=== PATIENT | female | born 1980 | race Caucasian/White ===

== ENCOUNTER 2024-02-09 07:55 | Outpatient (CLI) | payer OTHER, SELFPAY ==
--- NOTE | 2024-02-09 08:15 | CRLHL7_ITS ---
For Patients: As a result of the Century Cures Act, medical imaging exams and procedure reports are released immediately into your electronic medical record. You may view this report before your referring provider. If you have questions, please contact your health care provider. ULTRASOUND-GUIDED BREAST BIOPSY AND POST-BIOPSY DIGITAL MAMMOGRAM FOR BIOPSY MARKER PLACEMENT CLINICAL HISTORY: Indeterminate lesion. COMPARISON STUDIES: 01/25/2024. TECHNIQUE: Real-time ultrasound with image documentation was used for targeting the breast lesion. Core biopsy specimens were obtained using an automated gun with an 18-gauge biopsy needle. Post-biopsy CC and ML digital mammograms were obtained to document position of the biopsy marker. CONSENT and TIME OUT: The procedure, risks, and alternatives were explained to the patient and a consent was signed. [place] Protocol was followed including pre-procedure verification that relevant information/documentation was available, reviewed and properly matched to the patient; consent accurate and complete; and equipment and supplies available. Time Out was conducted just prior to starting procedure to verify the four required elements: patient identity, correct side/site marked (if applicable), procedure, relevant images/results properly labeled and displayed (if applicable). PROCEDURE: The patient was positioned supine on the ultrasound table. The breast was prepped with ChloraPrep. 6 cc of 1 percent lidocaine used for local anesthesia. Core samples were obtained. A sterile metal biopsy clip was placed percutaneously to gladis the lesion position within the breast. The specimens were placed in 10% formalin and sent to the pathology department. Pressure was held on the biopsy site until all bleeding subsided. The skin incision was closed with Steri-Strips. An ice pack was positioned over the biopsy site. Post-biopsy instructions were reviewed with the patient, and a written copy was given to her. LATERALITY: LEFT breast. LESION: Hypoechoic lobular solid nodule measuring 9 x 10 x 11 millimeters at 3 o`clock 7 cm from the nipple. SUSPICION FOR MALIGNANCY: Intermediate. NUMBER OF SAMPLES: 5. BIOPSY CLIP SHAPE: Oval. PROXIMITY OF CLIP TO TARGET: Within the lesion. IMPRESSION: Ultrasound-guided breast biopsy. When the pathology report is available, an addendum to this report will be made. ACR not applicable Dictated by Paramjit Tsang MD @ 02/09/2024 9:22:21 AM jj/Dictated by: Paramjit Tsang MD @ 02/09/2024 9:22:00 AM (Electronically Signed)
--- NOTE | 2024-02-09 09:00 | CRLHL7_ITS ---
For Patients: As a result of the Century Cures Act, medical imaging exams and procedure reports are released immediately into your electronic medical record. You may view this report before your referring provider. If you have questions, please contact your health care provider. SEE ULTRASOUND-GUIDED LEFT BREAST BIOPSY PERFORMED SAME DAY CRL:[email or web address] watters/Dictated by: Paramjit Tsang MD @ 02/09/2024 9:22:00 AM (Electronically Signed)
== END 2024-02-09 07:56 | disposition home or self-care (01) ==
PROVIDERS: Visit Provider Obstetrics & Gynecology
DX: N63.20 Unspecified lump in the left breast, unspecified quadrant (principal); C50.912 Malignant neoplasm of unspecified site of left female breast; R92.8 Other abnormal and inconclusive findings on diagnostic imaging of breast
CPT/HCPCS: 19083; 77065; 88305; 88341; 88342; 88360; 88361; A4648; A4649

== ENCOUNTER 2024-02-15 13:20 | Outpatient (CLI) | payer OTHER, SELFPAY ==
--- NOTE | 2024-02-15 13:45 | CRLHL7_ITS ---
For Patients: As a result of the 21st Century Cures Act, medical imaging exams and procedure reports are released immediately into your electronic medical record. You may view this report before your referring provider. If you have questions, please contact your health care provider. BILATERAL BREAST MRI WITHOUT AND WITH GADOLINIUM CLINICAL HISTORY: 43-year-old female with recently diagnosed LEFT breast cancer. INDICATION FOR BREAST MRI: Staging of newly diagnosed breast cancer and screening of contralateral breast. Regional lymph nodes will also be assessed. COMPARISON STUDIES: No prior MRIs available for comparison. Screening mammogram 01/10/2024, additional mammographic views of the LEFT breast and LEFT breast ultrasound 01/25/2024, ultrasound-guided biopsy and postprocedure mammogram 02/09/2024. CONTRAST: 15 cc of Dotarem. TECHNIQUE: The patient was positioned prone using a breast coil. Multiple imaging sequences were obtained using 1-1.5 mm thick slices with no gap. The image sequences include T2-weighted STIR in the axial plane, T1-weighted nonfat-saturated gradient echo in the axial plane, pre- and post-contrast T1-weighted FLASH 3D with fat suppression in the axial plane, and T1-weighted FLASH high resolution 3D with fat suppression in the sagittal plane. Image post-processing was performed on a [employer] workstation. Complex 3D rendering including maximum intensity projections (MIPS) and volumetric renderings were obtained to optimize visualization of the extent of pathology and relationship to the nipple, skin, and chest wall. This aids in determining feasibility of breast conservation surgery. Subtraction, multiplanar reconstruction, mean curve determination, and angiogenesis mapping were also performed. The study was technically adequate. FINDINGS: Amount of Fibroglandular Tissue: Scattered fibroglandular tissue. Breast Background Enhancement: Mild. RIGHT Breast: No suspicious areas of enhancement. LEFT Breast: At 3 o`clock, posterior depth, 8 cm from the nipple there is an irregular mass with irregular margins and heterogeneous internal enhancement measuring 1.4 x 1.2 cm. Artifact from a biopsy marker clip is seen within the mass. This is consistent with the site of biopsy-proven malignancy. There is additional mass and non-mass enhancement extending anteriorly. The mass and non-mass enhancement measure up to 3.4 cm. There is also enhancement extending laterally, which may represent the biopsied tract with post biopsy change. Lymph Nodes: There is a LEFT axillary lymph node with mild cortical thickening. IMPRESSIONS AND RECOMMENDATIONS: LEFT Breast: 1. Mass at 3 o`clock, posterior depth measuring up to 1.4 cm MRI is consistent with the biopsy-proven malignancy. There is additional surrounding non-mass enhancement, and the mass and non-mass enhancement measure up to 3.4 cm. If it would alter surgical or clinical management, targeted ultrasound to evaluate for a satellite mass could be performed. 2. Abnormal LEFT axillary lymph node with mild cortical thickening. Recommend LEFT axillary ultrasound and possible ultrasound-guided biopsy. RIGHT Breast: Negative, there is no MRI evidence of contralateral malignancy. BI-RADS Category 4: Suspicious Dictated by Марина Galicia MD @ 02/16/2024 1:39:06 PM bhavyaj/Dictated by: Марина Galicia MD @ 02/16/2024 1:41:00 PM (Electronically Signed)
== END 2024-02-15 13:21 | disposition home or self-care (01) ==
LOC: MRI 13:24
PROVIDERS: PCP Obstetrics & Gynecology; Visit Provider Surgery
DX: C50.812 Malignant neoplasm of overlapping sites of left female breast (principal)
CPT/HCPCS: 77049; A9575

== ENCOUNTER 2024-02-18 11:04 | Outpatient (CLI) | payer OTHER, SELFPAY | END 2024-02-18 11:05 | disposition home or self-care (01) | LOC: NFLDREF 02-19 23:00 | PROVIDERS: PCP Obstetrics & Gynecology; Referring Provider Obstetrics & Gynecology; Visit Provider Internal Medicine Hematology & Oncology | DX: C50.912 Malignant neoplasm of unspecified site of left female breast (principal); Z83.2 Family history of diseases of the blood and blood-forming organs and certain disorders involving the immune mechanism; Z17.421 Hormone receptor negative with human epidermal growth factor receptor 2 negative status | CPT/HCPCS: 85240; 85245; 85246; 85610; 85730 ==

== ENCOUNTER 2024-02-24 12:56 | Outpatient (CLI) | payer OTHER, SELFPAY ==
--- OUTSIDE RECORDS SUMMARY | 2024-02-21 14:58 | XMS_ITS | Continuity of Care Document ---
Author Organization [facility], [id number] Address [address] [place] [address] Care Team Providers Care Box Loader Name Role Phone ZENA IQBAL Primary Care Provider [phone] Assessment No assessment recorded. Plan of Treatment Reminders Order Date Submit Date Provider Last Modified By Organization Details Last Modified Time Details Appointments None record ed. Lab pap, LB + HR HPV 2023 024 [facility], [address], [id number], [place], [address], 4 12:16:07 Referral None record ed. Procedures None record ed. Surgeries None record ed. Imaging MAMMO, screen ing, digita l, bilate ral 2023 024 stephany [facility] [place], [address], [address], [place], [address], 4 11:37:58 Medication Orders None record ed. Patient TargetsNo targets recorded. Patient Instructions Encounter Date Encounter Id Patient Instructions Last Modified By Organization Details Last Modified Time 01/24/2024 [id number] A healthy lifestyle: care instructions [email or web address] Not available 01/24/2024 14:42:41 learning about control Not available 01/24/2024 14:42:41 Pap test: care instructions [email or web address] Not available 01/24/2024 14:42:41 safer sex: care instructions [email or web address] Not available 01/24/2024 14:42:41 skin cancer prevention: care instructions [email or web address] Not available 01/24/2024 14:42:41 Well Visit, Ages 18 to 65: Care Instructions Not available 01/24/2024 14:42:41 gonorrhea and chlamydia: about these tests [place] [id number] Not available 01/24/2024 14:42:40 HPV (human papillomavirus) vaccine: what you need to know [place] [id number] Not available 01/24/2024 14:42:41 learning about depression screening Not available 01/24/2024 14:42:41 learning about m ood disorders [email or web address] Not available 01/24/2024 14:42:40 learning about stress Not available 01/24/2024 14:42:41 breast self-exam : care instructions Not available 01/24/2024 14:42:41 Cervical Cancer Screening: Women should begin having a Pap smear at age 21. Women aged 21-29 should be screened every 3 years. Women aged 30-65 should be screened every 3-5 years. Your doctor may stop performing pap smear screenings if you have had a hysterectomy or are age 65 or above, if you meet certain criteria: Three consecutive negative cytology results or two consecutive negative HPV results within the previous 10 years with the most recent test within the past 5 years. No history of a high-grade precancerous lesions (cervical intraepithelial neoplasia grade 2 or grade 3 or cervical cancer within the past 20 years). Breast Cancer Screening: Average-risk women should initiate mammography screening at age 40 and no later than age 50. Screening mammography should occur annually, but no more than every 2 years and continue until at least age 74. If you are at higher risk of breast cancer you should be screened annually with consideration of other methods, including breast ultrasound and MRI depending on your particular risk assessment. You should be aware of any changes in your breasts and notify your provider of any concerns. Screening for Sexually Transmitted Diseases: Chlamydia and Gonorrhea are two of the most common sexually transmitted diseases with 75% of Chlamydial and 68% of Gonococcal infections showing no symptoms. Women should be screened for Chlamydia and Gonorrhea that are age 25 and under or women over age 25 at increased or special risk. Women should be screened for HIV aged 13-64 or at increased risk. 84% of cases are attributed to heterosexual sex. Women at increased or special risk or requesting STI screening should be screened for Hepatitis B and C, Syphilis, Herpes, Trichomonas. Vaccination Recommendations for Ages 27-45: Screenings for vaccination status should be based on the CDC Adult Vaccine Schedule. Recommendations include seasonal flu vaccine, Hepatitis A&B, and the Varicella series for those who are unvaccinated and have no history of infection. Completion of the HPV vaccine can be considered if desired and you have not been previously vaccinated. All eligible women should receive full vaccination against COVID-19. If you are actively attempting , you should not receive live vaccines. Contraception Information: If you are considering or participating in a heterosexual relationship involving vaginal intercourse it is recommended that you have a gynecologic visit to discuss contraception if you do not wish to become now. Your visit will include a discussion about which contraception option is best for you based on your medical history, ease of use and personal preference. Once a method is identified as the best option, your healthcare provider will provide education on how to most effectively use the method chosen, when to start, possible side effects and efficacy at preventing . If you wish to discontinue or change to another method of contraception, please discuss possible options with your healthcare provider. Hereditary Cancer Screening: Your provider will review your family history of any cancers in your first- and second-degree relatives if you know that information. A referral for genetic counseling may be made if your family history includes a diagnosis of cancer at a young age, multiple cancers of the same type in different family members of the same side, or multiple primary cancers in one individual, or multiple family members on the same side affected by a combination of breast, ovarian, endometrial, and/or gastrointestinal cancers. Preconception Counseling: If you are of reproductive age who are actively planning or not preventing should have a visit to discuss their reproductive plan. The goals of this visit are to identify any risks or barriers to healthy outcomes and to receive education on possible options for health management to reduce any risks prior to becoming . Your provider will ask you about your health history in order to identify possible chronic medical conditions that should be optimized prior to for better outcomes and will make referrals if needed. Your provider will also review the medications that you are currently taking that may be harmful in and talk with you about any that may need to be stopped. Your provider will review your vaccination status with you to identify if there are any that may be recommended as well as discuss substance abuse and possible environmental exposures. Family history will be obtained to identify any potential inheritable conditions and refer you to a genetic counselor if necessary. Your provider will ask you to start taking a folic acid supplementation of 400-800mcg daily to prevent neural tube defects if there is a chance you may become . Genetic Testing for Inheritable Disorders (Carrier Screening): The [place] [employer] recommends that all women, and preferably all women with a desire to become , consider having a blood test to assess their risk of carrying a baby with a significant inherited disorder, such as cystic fibrosis. This test only needs to be performed once in a lifetime (assuming there are no improvements in testing in the future). A positive test indicates that there is a risk for the disease, however, a baby can only be affected with the disease if both parents carry the same gene. Therefore, the father of the baby would also need to be tested. [email or web address] Not available 12/29/2023 17:21:57 Reason for Referral None Reported. Results Created Date Observation Date Name Description Value Unit Range Abnormal Flag Note LastModifiedBy Organization Detail LastModifiedTime 02/21/20 24 02/15/2024 jonathan shields/erickson berman tic resul t No observ ation record ed. [facility] [address] [place], [address], 02/21/2024 14:49:13 Result Notes None recorded. Problems Name Problem SNOMED Code Status Onset Date Resolution Date Notes Provider Name and Address Organization Details Recorded Time Urinary tract infectious disease 84856487 Active BRYAN Strong [facility] 3 09:16:54 Problem Notes None recorded. Procedures Surgical History Date Name Laterality Status Provider Name and Address Organization Details Recorded Time 01/24/20 [facility] Annual Well-Woman Visit age 40-64 [place] [address] [place] [address] completed Tesha ADAMS - [facility] 12/29/2023 17:21:57 01/07/20 Date of Last Mammogram completed Tesha ADAMS - [facility] 01/24/2024 14:10:31 01/09/20 [facility] Annual Well-Woman Visit age 40-64 [place] [address] [place] [address] completed Megan ADAMS - [facility] 12/24/2022 09:44:24 12/14/19 21 Date of Last Pap Smear completed Navalorraine Travis [place] [facility] 01/08/2023 09:28:36 09/30/19 20 Date of Last Colonoscopy completed Maria Luisa Travis [place] [facility] 01/08/2023 09:21:08 05/14/19 10 abdominoplasty completed Navalorraine Caceresg [place] [facility] 01/08/2023 09:21:00 09/29/19 07 section completed Maria Luisa Caceresg [place] - [facility] 01/08/2023 09:20:10 08/03/19 06 section completed Maria Luisa Caceresg [place] [facility] 01/08/2023 09:20:06 03/01/19 04 extraction of wisdom tooth completed Maria Luisa Caceresg [place] [facility] 01/08/2023 09:21:45 Imaging Results None recorded. Procedure Notes None recorded. Medical Equipment None Reported. Allergies No known drug allergies Medications Name Sig Start Date Stop Date Status Note LastModified by Organization Details LastModified Time nitrofurant oin macrocrysta l 100 mg capsule TAKE 1 CAPSULE BY MOUTH EVERY 12 HOURS FOR 5 DAYS active Not Available Not Available No t Available nitrofurant oin monohydrate /macrocryst als 100 mg capsule TAKE ONE CAPSULE BY MOUTH EVERY 12 HOURS FOR 5 DAYS NEEDED FOR RECURRENT URINARY TRACT INFECTION S 01/23 completed Not Available Not Available Not Available Vitamin D3 active Not Available Not Av ailable Not Available Vitals Date Recorded Body weight Body mass index (BMI) Body height Heart rate Systolic blood pressure Diastolic blood pressure Provider Name and Address Organization Details Last Updated DateTime 4 78794.2 g 27.6 kg/m2 154.94 cm 88 /min 107 mm[Hg] 65 mm[Hg] Tesha villaseñor [place] [facility] [place] [facility] 4 14:12:23 Social History Question Answer Notes LastModified by Organizat ion Details LastModified Time Tobacco Smoking Status Never Smoker Lelelaura Angy hdez [place] [facility] 01/08/2023 09:17:58 Do You Have An Advance Directive? No Information not available 01/08/2023 What Is Your Level Of Alcohol Consumption? Occasional 1 Drink Per Day Information not available 01/08/2023 What Is Your Level Of Caffeine Consumption? Moderate 2 Drinks Per Day Information not available 01/08/2023 History Of Domestic Violence No Information not available 01/08/2023 What Was The Date Of Your Most Recent Tobacco Screening? 01/24/2024 Information not available 01/24/2024 What Is Your Relationship Status? Information not available 01/08/2023 Are You Sexually Active? Yes Information not available 01/08/2023 Do You Use Any Illicit Or Recreational Drugs? No Information not available 01/08/2023 Has Tobacco Cessation Counseling Been Provided? No Information not available 01/24/2024 Do You Or Have You Ever Used Any Other Forms Of Tobacco Or Nicotine? No Information not available 01/24/2024 Sex: Unknown Functional Status Question Answer Note LastModified by Organizat ion Details LastModified Time What is your exercise level? Moderate walking 1-3 miles per day Information not available 01/08/2023 Mental Status None recorded. Family History Relationship Description Onset Age of this Age Resolved Age Notes LastModified by Organization Details LastModified Time Mother Hyperlipidem ia Not available 2022 09:22:04 Mother Malignant neoplasm of skin Basal and [place] us Not available 01/08/2023 09:22:47 Mother Mitral valve prolapse Not available 2022 09:22:39 Father Malignant neoplasm of skin Basal and [place] Not available 01/08/2023 09:22:48 Father Heart disease 64 s/p 3V CABG Not available 01/08/2023 09:23:12 Father Hyperlipidem ia Not available 2022 09:23:17 Maternal Grandfather Amyotrophic lateral sclerosis Not available 2022 09:23:34 Paternal Grandmother Diabetes mellitus Not available 2022 09:23:43 Paternal Grandmother Hypertensive disorder Not available 2022 09:23:53 Paternal Grandfather Malignant neoplastic disease unknow n Not available 01/08/2023 09:24:06 Medical History No medical history recorded. Gynecological History Statement/Question Response History of Abnormal PAP N Total lifetime partners Less than 5 Date of Last Mammogram 01/07/2024 Date of LMP 01/08/2024 Date of Last Diabetes Screening 01/09/20 23 Date of last bone density Sexually Active Y Age at Menarche: 11 Date of Last Colonoscopy 09/30/2019 Age at first intercourse 17 Current Control Method Vasectomy History of Fibroids Y Date of Last Pap Smear 12/13/2020 Date of Last Cholesterol Screening 01/08 Obstetrics History GPAL:G 2 P 2 0 0 2 Type Value Multiple Births 0 Full Term 2 Induced 0 Spontaneous 0 Premature 0 Living 2 Ectopics 0 Total 2 Past Encounters Encounter ID Performer Location Encounter Start Date Encounter Closed Date Diagnosis/Indication Diagnosis SNOMED-CT Code Diagnosis ICD10 Code [id number] CHARISSE KING MD [id number] [address] [address] 01/24/2024 13:56:34 01/24/2024 15:33:00 Gynecologic examination 61261096 Z01.419 Screening for malignant neoplasm of cervix 851749781 Z12.4 Screening for malignant neoplasm of breast 075612064 Z12.39 Health Concerns Section Related Observation LastModified by Organization Detai ls LastModified Time None Recorded Concern Status LastModified by Organization Details LastModified Time None Recorded Payers Encounter Date Sequence Insurance Name Policy Number Policy Paiz Covered Member ID Paiz Member ID Guarantor Name 01/24/2024 1 [employer] Max Calero [id number] Chelsie Calero Notes Date Note Type Note Provider Name and Address Organization Details Recorded Time 01/24/2024 text/html [facility] Annual Well-Women Visit Age 40-64Reported bypatient.Current Medical History:no active medical problems; no recent surgeries or hospitalizations Relevant Family History:no family history of breast cancer; no family history of ovarian cancer; no family history of uterine cancer; no family history of colon cancer; no family history of blood clots/DVT Last Pap smear:last Pap smear was normal; last HPV negative; last Pap smear was done 3 years ago Mammography:up-to-date Bone Density Study:reviewed and documented in [facility] history Colorectal screening:up-to-date Diabetes screening:reviewed and documented in [facility] history; screening test: HgA1C Lipid screening:reviewed and documented in [facility] history;prior lipid screening was abnormal Thyroid screeningreviewed and documented in [facility] history; prior thyroid screening was normal Risk factors for cervical cancer ([facility]) Z91.89:no risk factors Medical risk factors:no historical risk factors Contraceptive Method:satisfied with current method Sexually Active:Yes[place] [id number] [address], [place], [address], [place] [facility] 01/24/2024 14:42:46 OBGyn Episode No OBEpisode recorded.
--- OUTSIDE RECORDS SUMMARY | 2024-02-21 14:58 | XMS_ITS | Data Portability ---
Author Organization [facility] REWINDER, [id number] Address [address] [place] [address] Care Team Providers Care Transportation Driver Name Role Phone ZENA IQBAL Primary Care Provider Assessment No assessment recorded. Plan of Treatment Reminders Order Date Submit Date Provider Last Modified By Organization Details Last Modified Time Details Appointments None record ed. Lab lipid panel, serum 2022 023 [facility], [address] [place] [address], [address], [place], [address], 3 03:07:54 hemogl obin A1c, QN, blood 2022 023 [facility], [address] [place] [address], [address], [place], [address], 3 21:18:51 TSH, serum or plasma 2022 023 [facility], [address] [place] [address], [address], [place], [address], 3 03:07:54 pap, LB + HR HPV [address], [address], [place], [address], 4 12:16:07 Referral None record ed. Procedures None record ed. Surgeries None record ed. Imaging MAMMO, screen ing, digita l, bilate ral 2022 023 [facility] (Mammogram), [address], Radiology Dept, [address], [place], [address], 12:30:26 MAMMO, screen ing, digita l, bilate ral 2023 024 [facility], [address], [address], [place], [address], 11:37:58 Medication Orders None record ed. Patient TargetsNo targets recorded. Patient Instructions Encounter Date Encounter Id Patient Instructions Last Modified By Organization Details Last Modified Time 01/08/2023 [id number] A healthy lifestyle: care instructions Not available 01/08/2023 10:46:35 learning about control [email or web address] Not available 01/08/2023 10:46:35 Pap test: care instructions [email or web address] Not available 01/08/2023 10:46:35 safer sex: care instructions [email or web address] Not available 01/08/2023 10:46:35 skin cancer prevention: care instructions [email or web address] Not available 01/08/2023 10:46:35 Well Visit, Ages 18 to 65: Care Instructions [email or web address] Not available 01/08/2023 10:46:36 gonorrhea and chlamydia: about these tests Not available 01/08/2023 10:46:36 HPV (human papillomavirus) vaccine: what you need to know [email or web address] Not available 01/08/2023 10:46:36 learning about depression screening [email or web address] Not available 01/08/2023 10:46:36 learning about m ood disorders [email or web address] Not available 01/08/2023 10:46:36 learning about stress Not available 01/08/2023 10:46:36 breast self-exam : care instructions [email or web address] Not available 01/08/2023 10:46:36 venous blood draw* Not availab le 01/08/2023 10:46:36 Cervical Cancer Screening: Women should begin having [...] Testing for Inheritable Disorders (Carrier Screening): The [employer] recommends that [...] baby would also need to be tested. [email or web address] Not available 12/24/2022 09:44:23 01/24/2024 [id number] A healthy lifestyle: care instructions [email or web address] Not available 01/24/2024 14:42:41 learning about control Not available 01/24/2024 14:42:41 Pap test: care instructions [email or web address] Not available 01/24/2024 14:42:41 safer sex: care instructions Not available 01/24/2024 14:42:41 skin cancer prevention: care instructions [email or web address] Not available 01/24/2024 14:42:41 Well Visit, Ages 18 to 65: Care Instructions Not available 01/24/2024 14:42:41 gonorrhea and chlamydia: about these tests [place] [id number] Not available 01/24/2024 14:42:40 HPV (human papillomavirus) vaccine: what you need to know [place] [id number] Not available 01/24/2024 14:42:41 learning about depression screening [email or web address] Not available 01/24/2024 14:42:41 learning about m ood disorders Not available 01/24/2024 14:42:40 learning about stress [email or web address] Not available 01/24/2024 14:42:41 breast self-exam : [...] Testing for Inheritable Disorders (Carrier Screening): The [employer] recommends that [...] baby would also need to be tested. [email or web address] Not available 12/29/2023 17:21:57 Reason for Referral None Reported. Results Created Date Observation Date Name Description Value Unit Range Abnormal Flag Note LastModifiedBy Organization Detail LastModifiedTime 01/09/2001/08/2023 HEMOG LOBIN A1C hemoglobin A1C 5.2 % <5.7 Hayley l <5.7% Predi abete s 5.7-6 .4% Diabe [place] 6.5% or highe r Note: Adopt ed from ADA conse nsus guide lines . Not Available [address], [place], [address], 01/08/2023 21:18:51 01/09/20 23 01/08/2023 TSH WITH REFLE X TO FREE T4 TSH 1.21 uIU/m L 0.30-4 .20 Not Available [address], [place], [address], 01/09/2023 03:07:54 01/09/20 23 01/08/2023 LIPID PANEL cholesterol 188 mg/dL <200 Not Available [address], [place], [address], 01/09/2023 03:07:54 01/09/20 23 01/08/2023 LIPID PANEL triglyceride s 46 mg/dL <150 Not Available [address], [place], [address], 01/09/2023 03:07:54 01/09/2001/08/2023 LIPID PANEL direct measure HDL 69 mg/dL >=50 Not Available [address], [place], [address], 01/09/2023 03:07:54 01/09/20 23 01/08/2023 LIPID PANEL LDL cholesterol calculated 110 mg/dL <=100 high Not Available [address], [place], [address], 01/09/2023 03:07:54 01/09/20 23 01/08/2023 LIPID PANEL non HDL cholesterol 119 mg/dL <130 Jessica stero l Tana able: <200 mg/dL Trigl yceri killian Hayley l: Less than 150 mg/dL Borde rline High: 150-1 99 mg/dL High: 200-4 99 mg/dL Very High: Great er than or equal to 500 mg/dL Direc t Measu re HDL Femal e: Great er than or equal to 50 mg/dL Male: Great er than or equal to 40 mg/dL LDL Jessica stero l Tana able: <100m g/dL Above Tana able: 100-1 29 mg/dL Borde rline High: 130-1 59 mg/dL High: 160-1 89 mg/dL Very High: >= 190 mg/dL Non HDL Jessica stero l Tana able: 130 mg/dL Above Tana able: 130-1 59 mg/dL Macrina mcgee High: 160-1 89 mg/dL High: 190-2 19 mg/dL Very High: Great er than or equal to 220 mg/dL Not Available [address], [place], [address], 01/09/2023 03:07:54 01/24/20 24 01/24/2024 HPV AND GYNEC OLOGI C CYTOL OGY PANEL human papilloma virus 16 DNA Negati ve negati ve Not Available [address], [place], [address], 01/31/2024 12:16:07 01/24/20 24 01/24/2024 HPV AND GYNEC OLOGI C CYTOL OGY PANEL human papilloma virus 18 DNA Negati ve negati ve Not Available [address], [place], [address], 01/31/2024 12:16:07 01/24/20 24 01/24/2024 HPV AND GYNEC OLOGI C CYTOL OGY PANEL human papilloma virus other Negati ve negati ve Not Available [address], [place], [address], 01/31/2024 12:16:07 01/24/20 24 01/24/2024 HPV AND GYNEC OLOGI C CYTOL OGY PANEL final diagnosis See note below This patie nt's sampl e is negat ramirez for high risk HPV DNA. METHO DOLOG Y: The BD COR syste m uses autom ated extra ction , simul taneo us ampli ficat ion of HPV (E6/E 7 oncog nixon) and beta- globi n, follo wed by real time detec tion of fluor escen t label ed HPV and beta globi n using speci fic oligo nucle otide probe s. The test speci fical ly ident ifies types HPV 16 DNA and HPV 18 DNA while concu rrent ly detec ting the rest of the high risk types (31, 33, 35, 39, 45, 51, 52, 56, 58, 59, 66 or 68). COMME NTS: This test is not inten ded for use as a scree deirdre devic e for woman under age 30 with hayley l cervi negrita cytol ogy. Resul ts amaya d be corre lated with cytol ogic and histo logic findi ngs. Close clini negrita follo w up is recom ectormonica anderson see the separ ate Gynec ologi c Cytol ogy (Pap) repor t from the same colle ction date. Not Available [address], [place], [address], 01/31/2024 12:16:07 01/24/20 24 01/24/2024 GYNEC OLOGI C CYTOL OGY PAP SMEAR gynecologic cytology SEE RESULT S BELOW SPECI MEN SOURC E [place] ing Cervi x BKR LAB AP BUSINESS ATTORNEY INTER PRETA TION: Negat ramirez for Intra epith gab berry or El alcantara (NILM ) Elect krunal finnegan machelle d by Jovanni Norwood, CT (ASCP ) on 2023 at 11:14 AM Path repor [email or web address].com ments Imp Spec: Papan icola ou Test Limit ation s: Cervi negrita cytol ogy is a scree deirdre test with limit ed sensi tivit y, and regul ar scree deirdre is criti negrita for cance r preve ntion . Pap tests are prima rily effec tive for the diagn osis/ preve ntion of squam ous cell carci noma, not adeno carci noma or other cance rs. BKR LAB AP BUSINESS ATTORNEY ADEQU ACY: Satis facto ry for evalu ation , endoc ervic al/tr ansfo rmati on zone compo nent absen t Path repor t.rel evant Hx Spec: none BKR LAB AP LMP: 01/07 BKR LAB AP PREVI OUS ABNOR MAL: No BKR LAB AP PREVI OUS ABNL DX: hayley l Path repor t.com ments Imp Spec: The techn ical compo nent of this testi ng [facility] . Stain contr ols for all stain s resul juve withi n this repor t have been revie wed and show appro priat e react ivity . BKR AP ASSOC IATED HPV REPOR T: Pleas e see the assoc iated HPV High Risk Types DNA Cervi negrita repor t for Speci men [id number] from the same colle ction date. Not Available [address], [place], [address], 01/31/2024 12:16:09 02/21/20 24 02/15/2024 imagi ng/di agnos tic resul t No observ ation record ed. [facility] [address] [place], [address], 02/21/2024 14:49:13 Result Notes None recorded. Problems Name Problem SNOMED Code Status Onset Date Resolution Date Notes Provider Name and Address Organization Details Recorded Time Urinary tract infectious disease 11417720 Active Maria Luisa hdez [place] - [facility] 09:16:54 Problem Notes None recorded. Procedures Surgical History Date Name Laterality Status Provider Name and Address Organization Details Recorded Time 01/24/20 [facility] Annual Well-Woman Visit age 40-64 [place] [address] [place] [address] completed Tesha kwon [place] - [facility] 12/29/2023 17:21:57 01/07/20 24 Date of Last Mammogram completed Tesha kwon [place] - [facility] 01/24/2024 14:10:31 01/09/20 [facility] Annual Well-Woman Visit age 40-64 EST [address] [place] NEW [address] completed Crystal Beebe [place] - [facility] 12/24/2022 09:44:24 12/14/19 21 Date of Last Pap Smear completed Maria Luisa AD[facility] - [facility] 01/08/2023 09:28:36 09/30/19 20 Date of Last Colonoscopy completed Maria Luisa ADAMS - [facility] 01/08/2023 09:21:08 03/15/20 10 abdominoplasty completed Maria Luisa Travis [place] [facility] 01/08/2023 09:21:00 09/29/19 07 section completed Maria Luisa Travis [place] [facility] 01/08/2023 09:20:10 08/03/19 06 section completed Maria Luisa Travis [place] [facility] 01/08/2023 09:20:06 03/01/19 04 extraction of wisdom tooth completed Maria Luisa Travis [place] [facility] 01/08/2023 09:21:45 Imaging Results Imaging Date Name Status LastModified by Organiz ation Details LastModified Time 02/15/2024 imaging/diagn ostic result active [facility] [address] [place], [address], 02/21/2024 14:49:13 Procedure Notes None recorded. Medical Equipment None [...] Av ailable Not Available Vitals Date Recorded Heart rate Body height Body mass index (BMI) Body weight Systolic blood pressure Diastolic blood pressure Provider Name and Address Organization Details Last Updated DateTime 3 70 /min 154.94 cm 27.5 kg/m2 98782.7 7 g 110 mm[Hg] 72 mm[Hg] Lelelaura Travis [place] - [facility] 3 09:06:59 Date Recorded Body weight Body mass index (BMI) Body height Heart rate Systolic blood pressure Diastolic blood pressure Provider Name and Address Organization Details Last Updated DateTime 4 44308.2 g 27.6 kg/m2 154.94 cm 88 /min 107 mm[Hg] 65 mm[Hg] Tesha Meza [facility] [place] - [facility] 4 14:12:23 Social History Question Answer Notes LastModified by Organizat Actiance Details LastModified Time Tobacco Smoking Status Never Smoker BRYAN Strong - REWINDER 01/08/2023 09:17:58 Do You Have An Advance [...] Status Question Answer Note LastModified by Organizat Actiance Details LastModified Time What is your exercise [...] Diagnosis/Indication Diagnosis SNOMED-CT Code Diagnosis ICD10 Code [id number] CHARISSE KING MD [id number] ED[facility]IN [facility] [address] [place] [address] 01/08/2023 08:49:42 01/08/2023 14:49:51 Gynecologic examination 96284466 Z01.419 Screening for malignant neoplasm of breast 703143837 Z12.39 [id number] CHARISSE KING MD [id number] EDVIN S_[facility] [address] [address] 01/24/2024 13:56:34 01/24/2024 15:33:00 Gynecologic examination 28138270 Z01.419 Screening for malignant neoplasm of cervix 661020299 Z12.4 Screening for malignant neoplasm of breast 538342788 Z12.39 Health Concerns Section Related Observation LastModified by Organization Detai ls LastModified Time None Recorded Concern Status LastModified by Organization Details LastModified Time None Recorded Advance Directives Directive N: Payers Encounter Date Sequence Insurance Name Policy Number Policy Paiz Covered Member ID Paiz Member ID Guarantor Name 01/08/2023 1 [facility] Max Calero [id number] Chelsie Calero 01/24/2024 1 [facility] Max Calero [id number] Chelsie Calero Notes Date Note Type Note Provider Name and Address Organization Details Recorded Time 01/08/2023 text/html [facility] Annual Well-Women Visit Age 40-64Reported bypatient.Current Medical History:active medical problems Relevant Family History:has a family history of colon cancer Last Pap smear:last Pap smear was normal Mammography:up-to-date Bone Density Study:not applicable Colorectal screening:up-to-date Risk factors for cervical cancer ([facility]) Z91.89:no risk factors Medical risk factors:no historical risk factors Contraceptive Method:Current Method Used: vasectomy Sexually Active:Yes: spouse Menstrual cycle:normal menstrual cycle and flow Urinary symptoms:negative Vulva:negative Vagina:negative Breast:negativeNotes:S he quit her job in June and she is not planning on looking for another job for awhile.She has questions for her teenager daughters about contraception and control [place] [address] [facility],[address], [place], [address], [facility] - [facility] RE[facility] 01/08/2023 10:46:51 01/24/2024 text/html [facility] Annual Well-Women Visit Age 40-64Reported [...] Mammography:up-to-date Bone Density Study:reviewed and documented in BUSINESS ATTORNEY history Colorectal screening:up-to-date Diabetes screening:reviewed and documented in BUSINESS ATTORNEY history; screening test: HgA1C Lipid screening:reviewed and documented in BUSINESS ATTORNEY history;prior lipid screening was abnormal Thyroid screeningreviewed and documented in BUSINESS ATTORNEY history; prior thyroid screening was normal Risk factors for cervical cancer ([facility]) Z91.89:no risk factors Medical risk factors:no historical risk factors Contraceptive Method:satisfied with current method Sexually Active:Yes[place] [address] [facility],[address], [place], [address], [place] [facility] 01/24/2024 14:42:46 OBGyn Episode Ob Episode Information Episode Created Date Number of Fetuses Patient Bloodtype Patient rh Status Prepregnancy Weight lbs Domestic Partner Domestic Partner Phone Father Name Medical Delivery Technician Status 01/09/20 23 1 CLOSED Fetus Data First Name Last Name Admitted to NICU Weight (g) Sex Living Outcome Pediatric Complications Fetus ID Race Codes Race Delivery Type 3175.14 4 F Full Term [id number] Gamal Calculation GAMAL Calculation Method Initial Gamal Date Initial Exam Date Initial Exam Provider Initial Ultrasound Date Last Menstrual Period Date Ultra Sound Weeks Gestation Conception by IVF Embryo Age at Transfer Date of Transfer 0 Eighteen To Twenty Week Gamal Update Ultra Sound Date Fundal Height At Umbil Quickening Date Ultra Sound Latest Weeks Gestation Final Gamal Confirmed By Final Gamal Confirmed Date Final Gamal Date Ultra Sound Latest Days Gestation 0 0 Menstrual History Last Menstrual Date Menses Monthly On Bcp Conception Prior Menses Frequency Hcg Plus Date Menarche Onset Age Delivery Information Delivery Date Delivery Type Labor Anesthesia Weeks Gestation Incision Type Labor Labor Length Hrs Delivered By Post Complications Tubal Sterilization Discharge Date Comments 7 [facility] 39 Suad, repeat Discharge Information Feeding Method Contraceptive Method Maternal HG B and HCT Levels Ob Episode Information Episode Created Date Number of Fetuses Patient Bloodtype Patient rh Status Prepregnancy Weight lbs Domestic Partner Domestic Partner Phone Father Name Medical Delivery Technician Status 01/09/20 23 1 CLOSED Fetus Data First Name Last Name Admitted to NICU Weight (g) Sex Living Outcome Pediatric Complications Fetus ID Race Codes Race Delivery Type 3175.14 4 F Full Term [id number] Gamal Calculation GAMAL Calculation Method Initial Gamal Date Initial Exam Date Initial Exam Provider Initial Ultrasound Date Last Menstrual Period Date Ultra Sound Weeks Gestation Conception by IVF Embryo Age at Transfer Date of Transfer 0 Eighteen To Twenty Week Gamal Update Ultra Sound Date Fundal Height At Umbil Quickening Date Ultra Sound Latest Weeks Gestation Final Gamal Confirmed By Final Gamal Confirmed Date Final Gamal Date Ultra Sound Latest Days Gestation 0 0 Menstrual History Last Menstrual Date Menses Monthly On Bcp Conception Prior Menses Frequency Hcg Plus Date Menarche Onset Age Delivery Information Delivery Date Delivery Type Labor Anesthesia Weeks Gestation Incision Type Labor Labor Length Hrs Delivered By Post Complications Tubal Sterilization Discharge Date Comments 6 40 Yesika, failure to progress, meconium Discharge Information Feeding Method Contraceptive Method Maternal HG B and HCT Levels
--- NOTE | 2024-02-24 15:30 | CRLHL7_ITS ---
For Patients: As a result of the Century Cures Act, medical imaging exams and procedure reports are released immediately into your electronic medical record. You may view this report before your referring provider. If you have questions, please contact your health care provider. Indication: Breast cancer. Technique: Noncontrast sagittal T1, axial FLAIR, T2, diffusion, post contrast T1 weighted sequences are provided. No comparisons. 15 cc of dotarem gadolinium was administered intravenously. Findings: The ventricles, sulci and gyri are normal size, shape and contour for age. The midline structures are centrally located with no evidence of shift. There are no suspicious intra or extra-axial fluid collections. No region of restricted diffusion or suspicious regions of abnormal parenchymal enhancement. Expected flow voids in the cavernous carotids and basilar artery. Mild mucosal thickening seen throughout the paranasal sinuses with sparing of the frontal sinuses. Impression: 1. No radiographic evidence of acute intracranial abnormalities. Dictated by Jaswant Perkins MD @ 02/24/2024 4:15:37 PM (Electronically Signed)
== END 2024-02-24 12:57 | disposition home or self-care (01) ==
LOC: RAD 12:56
PROVIDERS: PCP Obstetrics & Gynecology; Visit Provider Internal Medicine Hematology & Oncology
DX: C50.919 Malignant neoplasm of unspecified site of unspecified female breast (principal); Z51.81 Encounter for therapeutic drug level monitoring; Z79.899 Other long term (current) drug therapy; Z17.421 Hormone receptor negative with human epidermal growth factor receptor 2 negative status
CPT/HCPCS: 70553; 93306; A9575

== ENCOUNTER 2024-02-25 09:59 | Outpatient (CLI) | payer OTHER, SELFPAY ==
--- NOTE | 2024-02-25 | CRLHL7_ITS ---
For Patients: As a result of the Century Cures Act, medical imaging exams and procedure reports are released immediately into your electronic medical record. You may view this report before your referring provider. If you have questions, please contact your health care provider. ULTRASOUND-GUIDED LEFT BREAST BIOPSY AND POST-BIOPSY DIGITAL MAMMOGRAM FOR BIOPSY MARKER PLACEMENT CLINICAL HISTORY: Indeterminate solid nodule. COMPARISON STUDIES: Breast MRI 02/15/2024, ultrasound 02/25/2024. TECHNIQUE: Real-time ultrasound with image documentation was used for targeting the breast lesion. Core biopsy specimens were obtained using an automated gun with an 18-gauge biopsy needle. Post-biopsy CC and ML digital mammograms were obtained to document position of the biopsy marker. CONSENT and TIME OUT: The procedure, risks, and alternatives were explained to the patient and a consent was signed. Ambler Protocol was followed including pre-procedure verification that relevant information/documentation was available, reviewed and properly matched to the patient; consent accurate and complete; and equipment and supplies available. Time Out was conducted just prior to starting procedure to verify the four required elements: patient identity, correct side/site marked (if applicable), procedure, relevant images/results properly labeled and displayed (if applicable). PROCEDURE: The patient was positioned supine on the ultrasound table. The breast was prepped with ChloraPrep. 6 cc of 1 percent lidocaine used for local anesthesia. Core samples were obtained. A sterile metal biopsy clip was placed percutaneously to gladis the lesion position within the breast. The specimens were placed in 10% formalin and sent to the pathology department. Pressure was held on the biopsy site until all bleeding subsided. The skin incision was closed with Steri-Strips. An ice pack was positioned over the biopsy site. Post-biopsy instructions were reviewed with the patient, and a written copy was given to her. LATERALITY: LEFT breast. LESION: Solid hypoechoic nodule measuring 1 cm at 2 o`clock, 6 cm from the nipple. SUSPICION FOR MALIGNANCY: Probable fibroadenoma. NUMBER OF SAMPLES: 5. BIOPSY CLIP SHAPE: HydroMARK. PROXIMITY OF CLIP TO TARGET: Within the lesion. IMPRESSION: Ultrasound-guided breast biopsy. When the pathology report is available, an addendum to this report will be made. ACR not applicable Dictated by Paramjit Tsang MD @ 02/25/2024 1:19:05 PM /sp SP/Dictated by: Paramjit Tsang MD @ 02/25/2024 1:19:00 PM (Electronically Signed)
--- NOTE | 2024-02-25 | CRLHL7_ITS ---
For Patients: As a result of the Century Cures Act, medical imaging exams and procedure reports are released immediately into your electronic medical record. You may view this report before your referring provider. If you have questions, please contact your health care provider. PLEASE SEE LEFT ULTRASOUND-GUIDED BIOPSY OF SAME DAY. CRL:sp SP/Dictated by: Paramjit Tsang MD @ 02/25/2024 1:15:00 PM (Electronically Signed)
--- NOTE | 2024-02-25 10:15 | CRLHL7_ITS ---
For Patients: As a result of the Cures Act, medical imaging exams and procedure reports are released immediately into your electronic medical record. You may view this report before your referring provider. If you have questions, please contact your health care provider. LEFT BREAST ULTRASOUND CLINICAL HISTORY: Follow-up MRI left breast. COMPARISON: Breast MRI 02/15/2024. TECHNIQUE: Real-time ultrasound imaging of left breast with imaging documentation. Scanning was performed by both the technologist and the radiologist. FINDINGS: Previously biopsied lesion is present at 3 o`clock. Normal post biopsy changes are present within the adjacent soft tissues extending to the skin. No suspicious finding to correspond with the MRI finding. However, there is a hypoechoic nodule at 2 o`clock, 6 cm from the nipple, measuring 1 cm. IMPRESSION: Indeterminate solid nodule LEFT breast 2 o`clock, 6 cm from the nipple, measuring 1 cm. No ultrasound abnormality adjacent to the previously biopsied lesion at 3 o`clock. RECOMMENDATIONS: Ultrasound guided core needle biopsy will be performed subsequently. Results and recommendations were discussed with the patient at the time of the exam. A lay language report of this examination will be provided to the patient. BI-RADS Category 4: Suspicious Dictated by Paramjit Tsang MD @ 02/25/2024 1:17:20 PM /sp SP/Dictated by: Paramjit Tsang MD @ 02/25/2024 1:17:00 PM (Electronically Signed)
--- NOTE | 2024-02-25 10:15 | CRLHL7_ITS ---
For Patients: As a result of the Century Cures Act, medical imaging exams and procedure reports are released immediately into your electronic medical record. You may view this report before your referring provider. If you have questions, please contact your health care provider. ULTRASOUND-GUIDED LEFT AXILLARY LYMPH NODE BIOPSY CLINICAL HISTORY: Mildly prominent LEFT axillary lymph node. COMPARISON STUDIES: Breast MRI 02/15/2024. TECHNIQUE: Real-time ultrasound with image documentation was used for targeting the LEFT axillary lesion. Core biopsy specimens were obtained using an automated gun with an 18-gauge biopsy needle. CONSENT and TIME OUT: The procedure, risks, and alternatives were explained to the patient and a consent was signed. [place] Protocol was followed including pre-procedure verification that relevant information/documentation was available, reviewed and properly matched to the patient; consent accurate and complete; and equipment and supplies available. Time Out was conducted just prior to starting procedure to verify the four required elements: patient identity, correct side/site marked (if applicable), procedure, relevant images/results properly labeled and displayed (if applicable). PROCEDURE: The patient was positioned supine on the ultrasound table. The left axilla was prepped with ChloraPrep. 8 cc of 1 percent lidocaine used for local anesthesia. Core samples were obtained. A sterile metal biopsy clip was placed percutaneously to gladis the lesion position within the breast. The specimens were placed in 10% formalin and sent to the pathology department. Pressure was held on the biopsy site until all bleeding subsided. The skin incision was closed with Steri-Strips. An ice pack was positioned over the biopsy site. Post-biopsy instructions were reviewed with the patient, and a written copy was given to her. LATERALITY: LEFT axilla. LESION: LEFT axillary lymph node is present with possible mild cortical thickening. SUSPICION FOR MALIGNANCY: Low. NUMBER OF SAMPLES: 5. BIOPSY CLIP SHAPE: Oval. PROXIMITY OF CLIP TO TARGET: Within the lesion. IMPRESSION: Ultrasound-guided left axillary lymph node biopsy. When the pathology report is available, an addendum to this report will be made. ACR not applicable Dictated by Paramjit Tsang MD @ 02/25/2024 1:15:21 PM /sp SP/Dictated by: Paramjit Tsang MD @ 02/25/2024 1:15:00 PM (Electronically Signed)
== END 2024-02-25 10:00 | disposition home or self-care (01) ==
LOC: US 10:00
PROVIDERS: PCP Obstetrics & Gynecology; Visit Provider Surgery
DX: N63.20 Unspecified lump in the left breast, unspecified quadrant (principal); N62 Hypertrophy of breast; R92.8 Other abnormal and inconclusive findings on diagnostic imaging of breast
CPT/HCPCS: 19083; 38505; 76642; 76942; 77065; 88305; A4648; A4649

== ENCOUNTER 2024-02-28 06:04 | Day surgery (SDC) | payer OTHER, SELFPAY ==
--- OUTSIDE RECORDS SUMMARY | 2024-02-28 06:07 | XMS_ITS | Continuity of Care Document ---
Author Organization [facility] SA[facility] CHIEF METEOROLOGIST, [id number] Address [address] [place] [address] Care Team Providers Care Smoke Jumper Supervisor Name Role Phone ZENA IQBAL Primary Care Provider [phone] Assessment No assessment recorded. Plan of Treatment Reminders Order Date Submit Date Provider Last Modified By Organization Details Last Modified Time Details Appointments None record ed. Lab pap, LB + HR HPV 2023 024 [facility], [address], [address], [place], [address], 4 12:16:07 Referral None record ed. Procedures None record ed. Surgeries None record ed. Imaging MAMMO, screen ing, digita l, bilate ral 2023 024 stephany [facility] [place], [address], [address], [place], [address], 4 11:37:58 Medication Orders None record ed. Patient TargetsNo targets recorded. Patient Instructions Encounter Date Encounter Id Patient Instructions Last Modified By Organization Details Last Modified Time 01/24/2024 [id number] A healthy lifestyle: care instructions [email or web address] Not available 01/24/2024 14:42:41 learning about control [email or web address] Not available 01/24/2024 14:42:41 Pap test: care instructions [email or web address] Not available 01/24/2024 14:42:41 safer sex: care instructions [email or web address] Not available 01/24/2024 14:42:41 skin cancer prevention: care instructions [email or web address] Not available 01/24/2024 14:42:41 Well Visit, Ages 18 to 65: Care Instructions [email or web address] Not available 01/24/2024 14:42:41 gonorrhea and chlamydia: about these tests [place] [address] Not available 01/24/2024 14:42:40 HPV (human papillomavirus) vaccine: what you need to know [place] [address] Not available 01/24/2024 14:42:41 learning about depression screening Not available 01/24/2024 14:42:41 learning about m ood disorders [email or web address] Not available 01/24/2024 14:42:40 learning about stress Not available 01/24/2024 14:42:41 breast self-exam : care instructions [email or web address] Not available 01/24/2024 14:42:41 Cervical Cancer Screening: [...] Testing for Inheritable Disorders (Carrier Screening): The [employer] recommends that [...] baby would also need to be tested. [email or web address] Not available 12/29/2023 17:21:57 Reason for Referral None Reported. Problems Name Problem SNOMED Code Status Onset Date Resolution Date Notes Provider Name and Address Organization Details Recorded Time Urinary tract infectious disease 61044352 Active Maria Luisa hdez [place] [facility] CHIEF METEOROLOGIST 09:16:54 Problem Notes None recorded. Procedures Surgical History Date Name Laterality Status Provider Name and Address Organization Details Recorded Time 01/24/20 24 [facility] Annual Well-Woman Visit age 40-64 [place] [address] [place] [address] completed Tesha ADAMS - [facility] CHIEF METEOROLOGIST 12/29/2023 17:21:57 01/07/20 24 Date of Last Mammogram completed Tesha ADAMS - [facility] CHIEF METEOROLOGIST 01/24/2024 14:10:31 01/09/20 23 [facility] Annual Well-Woman Visit age 40-64 EST [address] [place] [address] completed Crystal Beebe BRYAN Torres [facility] CHIEF METEOROLOGIST 12/24/2022 09:44:24 12/14/19 21 Date of Last Pap Smear completed Maria Luisa ADAMS - [facility] CHIEF METEOROLOGIST 01/08/2023 09:28:36 09/30/19 20 Date of Last Colonoscopy completed Maria Luisa ADAMS - [facility] CHIEF METEOROLOGIST 01/08/2023 09:21:08 05/14/19 10 abdominoplasty completed Maria Luisa Travis [place] - [facility] CHIEF METEOROLOGIST 01/08/2023 09:21:00 09/29/19 07 section completed Maria Luisa Travis BRYAN - [facility] CHIEF METEOROLOGIST 01/08/2023 09:20:10 08/03/19 06 section completed Maria Luisa Travis BRYAN - [facility] CHIEF METEOROLOGIST 01/08/2023 09:20:06 03/01/19 04 extraction of wisdom tooth completed Maria Luisa Travis [place] - [facility] CHIEF METEOROLOGIST 01/08/2023 09:21:45 Imaging Results None recorded. Procedure [...] Address Organization Details Last Updated DateTime 4 16188.2 g 27.6 kg/m2 154.94 cm 88 /min 107 mm[Hg] 65 mm[Hg] Tesha Lutz [facility] [place] - [facility] CHIEF METEOROLOGIST 4 14:12:23 Social History Question Answer Notes LastModified by Organizat ion Details LastModified Time Tobacco Smoking Status Never Smoker Maria Luisa [place] - [facility] CHIEF METEOROLOGIST 01/08/2023 09:17:58 Do You Have An Advance [...] 01/08/2024 Date of Last Diabetes Screening 01/09/20 Date of last bone density Sexually Active [...] Diagnosis/Indication Diagnosis SNOMED-CT Code Diagnosis ICD10 Code [id number] CHARISSE KING MD [id number] EDVIN EATON OD [address] [address] 01/24/2024 13:56:34 01/24/2024 15:33:00 Gynecologic examination 41556335 Z01.419 Screening for malignant neoplasm of cervix 671319398 Z12.4 Screening for malignant neoplasm of breast 497939327 Z12.39 Health Concerns Section Related Observation LastModified by Organization Detai ls LastModified Time None Recorded Concern Status LastModified by Organization Details LastModified Time None Recorded Payers Encounter Date Sequence Insurance Name Policy Number Policy Paiz Covered Member ID Paiz Member ID Guarantor Name 01/24/2024 1 vocaltap Max Calero [id number] Chelsie Calero Notes Date Note Type Note Provider Name and Address Organization Details Recorded Time 01/24/2024 text/html [facility] Annual Well-Women Visit Age 40-64Reported bypatient.Current Medical [...] Mammography:up-to-date Bone Density Study:reviewed and documented in [facility] history Colorectal screening:up-to-date Diabetes screening:reviewed and documented in [facility] history; screening test: HgA1C Lipid screening:reviewed and documented in [employer] history;prior lipid screening was abnormal Thyroid screeningreviewed and documented in [facility] history; prior thyroid screening was normal Risk factors for cervical cancer (CMS) Z91.89:no risk factors Medical risk factors:no historical risk factors Contraceptive Method:satisfied with current method Sexually Active:Yes[place] [address] [facility],[address], [place], [address], [facility] CHIEF METEOROLOGIST 01/24/2024 14:42:46 OBGyn Episode No OBEpisode recorded.
--- OUTSIDE RECORDS SUMMARY | 2024-02-28 06:07 | XMS_ITS | Data Portability ---
Author Organization [facility] VENTURE CAPITAL ANALYST, [id number] Address [address] [place] [address] Care Team Providers Care Calender Worker Helper Name Role Phone ZENA IQBAL Primary Care Provider [phone] Assessment No assessment recorded. Plan of Treatment Reminders Order Date Submit Date Provider Last Modified By Organization Details Last Modified Time Details Appointments None record ed. Lab lipid panel, serum 2022 023 [facility], [address] [place] [address], [address], [place], [address], 3 03:07:54 hemogl obin A1c, QN, blood 2022 023 [facility], [address] [place] [address], [address], [place], [address], 3 21:18:51 TSH, serum or plasma 2022 023 [facility], [address] [place] [address], [address], [place], [address], 3 03:07:54 pap, LB + HR HPV [address], [address], [place], [address], 4 12:16:07 Referral None record ed. Procedures None record ed. Surgeries None record ed. Imaging MAMMO, screen ing, digita l, bilate ral 2022 023 [facility] (Mammogram), [address], [place], [address], 12:30:26 MAMMO, screen ing, digita l, bilate ral 2023 024 [facility], [address], [address], [place], [address], 11:37:58 Medication Orders None record ed. Patient TargetsNo targets recorded. Patient Instructions Encounter Date Encounter Id Patient Instructions Last Modified By Organization Details Last Modified Time 01/08/2023 [id number] A healthy lifestyle: care instructions [email or web address] Not available 01/08/2023 10:46:35 learning about control Not available 01/08/2023 10:46:35 Pap test: care instructions [email or web address] Not available 01/08/2023 10:46:35 safer sex: care instructions Not available 01/08/2023 10:46:35 skin cancer prevention: care instructions [email or web address] Not available 01/08/2023 10:46:35 Well Visit, Ages 18 to 65: Care Instructions [email or web address] Not available 01/08/2023 10:46:36 gonorrhea and chlamydia: about these tests [email or web address] Not available 01/08/2023 10:46:36 HPV (human papillomavirus) vaccine: what you need to know Not available 01/08/2023 10:46:36 learning about depression screening [email or web address] Not available 01/08/2023 10:46:36 learning about m ood disorders [email or web address] Not available 01/08/2023 10:46:36 learning about stress [email or web address] Not available 01/08/2023 10:46:36 breast self-exam : care instructions Not available 01/08/2023 10:46:36 venous blood draw* [...] Testing for Inheritable Disorders (Carrier Screening): The [employer] recommends that [...] baby would also need to be tested. [email or web address] Not available 12/24/2022 09:44:23 01/24/2024 [id number] A healthy lifestyle: care instructions [email or web address] Not available 01/24/2024 14:42:41 learning about control [email or web address] Not available 01/24/2024 14:42:41 Pap test: care instructions [email or web address] Not available 01/24/2024 14:42:41 safer sex: care instructions Not available 01/24/2024 14:42:41 skin cancer prevention: care instructions [email or web address] Not available 01/24/2024 14:42:41 Well Visit, Ages 18 to 65: Care Instructions [email or web address] Not available 01/24/2024 14:42:41 gonorrhea and chlamydia: about these tests [place] [address] Not available 01/24/2024 14:42:40 HPV (human papillomavirus) vaccine: what you need to know [place] [address] Not available 01/24/2024 14:42:41 learning about depression screening [email or web address] Not available 01/24/2024 14:42:41 learning about m ood disorders [email or web address] Not available 01/24/2024 14:42:40 learning about stress [email or web address] Not available 01/24/2024 14:42:41 breast self-exam : care instructions [email or web address] Not available 01/24/2024 14:42:41 Cervical Cancer Screening: [...] Testing for Inheritable Disorders (Carrier Screening): The [employer] recommends that [...] conse nsus guide lines . Not Available [address], [place], [address], 01/08/2023 21:18:51 01/09/20 23 01/08/2023 TSH WITH REFLE X TO FREE T4 TSH 1.21 uIU/m L 0.30-4 .20 Not Available [address], [place], [address], 01/09/2023 03:07:54 01/09/20 23 01/08/2023 LIPID PANEL cholesterol 188 mg/dL <200 Not Available [address], [place], [address], 01/09/2023 03:07:54 01/09/20 23 01/08/2023 LIPID PANEL triglyceride s 46 mg/dL <150 Not Available [address], [place], [address], 01/09/2023 03:07:54 01/09/2001/08/2023 LIPID PANEL direct measure HDL 69 mg/dL >=50 Not Available [address], [place], [address], 01/09/2023 03:07:54 01/09/20 23 01/08/2023 LIPID PANEL LDL cholesterol calculated 110 mg/dL <=100 high Not Available [address], [place], [address], 01/09/2023 03:07:54 01/09/20 23 01/08/2023 LIPID PANEL [...] or equal to 220 mg/dL Not Available [address], [place], [address], 01/09/2023 03:07:54 01/24/20 24 01/24/2024 HPV AND GYNEC OLOGI C CYTOL OGY PANEL human papilloma virus 16 DNA Negati ve negati ve Not Available [address], [place], [address], 01/31/2024 12:16:07 01/24/20 24 01/24/2024 HPV AND GYNEC OLOGI C CYTOL OGY PANEL human papilloma virus 18 DNA Negati ve negati ve Not Available [address], [place], [address], 01/31/2024 12:16:07 01/24/20 24 01/24/2024 HPV AND GYNEC OLOGI C CYTOL OGY PANEL human papilloma virus other Negati ve negati ve Not Available [address], [place], [address], 01/31/2024 12:16:07 01/24/20 24 01/24/2024 HPV AND [...] the same colle ction date. Not Available [address], [place], [address], 01/31/2024 12:16:07 01/24/20 24 01/24/2024 GYNEC OLOGI C CYTOL OGY PAP SMEAR gynecologic cytology SEE RESULT S BELOW SPECI MEN SOURC E [place] ing Cervi x BKR LAB AP [facility] HEL[facility] INTER PRETA TION: Negat ramirez for Intra [...] or other cance rs. BKR LAB AP WELDER HELPER ADEQU ACY: Satis facto ry for evalu [...] negrita repor t for Speci men [id number] from the same colle ction date. Not Available [address], [place], [address], 01/31/2024 12:16:09 Result Notes None recorded. Problems Name Problem SNOMED Code Status Onset Date Resolution Date Notes Provider Name and Address Organization Details Recorded Time Urinary tract infectious disease 78820267 Active BRYAN Strong Premkrysten V[facility] CAPITAL ANALYST 09:16:54 Problem Notes None recorded. Procedures Surgical History Date Name Laterality Status Provider Name and Address Organization Details Recorded Time 01/24/20 24 [facility] Annual Well-Woman Visit age 40-64 [place] [address] [place] [address] completed Tesha kwon [place] - [facility] V[facility]URE CAPITAL ANALYST 12/29/2023 17:21:57 01/07/20 24 Date of Last Mammogram completed Tesha ADAMS - [facility] [employer] CAPITAL ANALYST 01/24/2024 14:10:31 01/09/20 23 [facility] Annual Well-Woman Visit age 40-64 EST [address] [place] NEW [address] completed Crystal Beebe BRYAN - [facility] VENTURE CAPITAL ANALYST 12/24/2022 09:44:24 12/14/19 21 Date of Last Pap Smear completed Maria Luisa ADAMS - [facility] V[employer]URE CAPITAL ANALYST 01/08/2023 09:28:36 09/30/19 20 Date of Last Colonoscopy completed Maria Luisa Marin [employer] CAPITAL ANALYST 01/08/2023 09:21:08 05/14/19 10 abdominoplasty completed Maria Luisa Marin [employer] CAPITAL ANALYST 01/08/2023 09:21:00 09/29/19 07 section completed Maria Luisa Rivers r V[employer]URE CAPITAL ANALYST 01/08/2023 09:20:10 08/03/19 06 section completed Maria Luisa Rivers r VENTURE CAPITAL ANALYST 01/08/2023 09:20:06 03/01/19 04 extraction of wisdom tooth completed Maria Luisa ADAMS - [facility] CAPITAL ANALYST 01/08/2023 09:21:45 Imaging Results None recorded. Procedure [...] 3 70 /min 154.94 cm 27.5 kg/m2 42998.7 7 g 110 mm[Hg] 72 mm[Hg] Maria Luisa ADAMS Quincykrysten VENTURE CAPITAL ANALYST 3 09:06:59 Date Recorded Body weight Body mass index (BMI) Body height Heart rate Systolic blood pressure Diastolic blood pressure Provider Name and Address Organization Details Last Updated DateTime 4 [address]1134.2 g 27.6 kg/m2 154.94 cm 88 /min 107 mm[Hg] 65 mm[Hg] Tesha Lutz [facility] VENTURE CAPITAL ANALYST 4 14:12:23 Social History Question Answer Notes LastModified by Organizat ion Details LastModified Time Tobacco Smoking Status Never Smoker BRYAN Strong - Prem[facility] VENTURE CAPITAL ANALYST 01/08/2023 09:17:58 Do You Have An Advance [...] Diagnosis/Indication Diagnosis SNOMED-CT Code Diagnosis ICD10 Code [id number] CHARISSE KING MD [id number] Curb CallARTNER S_HAZELWO OD [address] [place] [address] 01/08/2023 08:49:42 01/08/2023 14:49:51 Gynecologic examination 44989290 Z01.419 Screening for malignant neoplasm of breast 310305358 Z12.39 [id number] CHARISSE KING MD [id number] [facility] MARYVALE S_HAZELWO OD [address] [place] [address] 01/24/2024 13:56:34 01/24/2024 15:33:00 Gynecologic examination 80212496 Z01.419 Screening for malignant neoplasm of cervix 738042293 Z12.4 Screening for malignant neoplasm of breast 073806266 Z12.39 Health Concerns Section Related Observation LastModified by Organization Detai ls LastModified Time None Recorded Concern Status LastModified by Organization Details LastModified Time None Recorded Advance Directives Directive N: Payers Encounter Date Sequence Insurance Name Policy Number Policy Paiz Covered Member ID Paiz Member ID Guarantor Name 01/08/2023 1 Ancer[employer] Fanear Max Calero [id number] Chelsie Calero 01/24/2024 1 [employer]plicant Max Calero [id number] Chelsie Calero Notes Date Note Type Note Provider Name and Address Organization Details Recorded Time 01/08/2023 text/html [facility] Annual Well-Women Visit Age 40-64Reported bypatient.Current Medical History:active medical problems Relevant Family History:has a family history of colon cancer Last Pap smear:last Pap smear was normal Mammography:up-to-date Bone Density Study:not applicable Colorectal screening:up-to-date Risk factors for cervical cancer ([facility]) Z91.89:no risk factors Medical risk factors:no historical risk factors Contraceptive Method:Current Method Used: vasectomy Sexually Active:Yes: spouse Menstrual cycle:normal menstrual cycle and flow Urinary symptoms:negative Vulva:negative Vagina:negative Breast:negativeNotes:S he quit her job in June and she is not planning on looking for another job for awhile.She has questions for her teenager daughters about contraception and control [place] [address], [place], [address], [employer] VENTURE CAPITAL ANALYST 01/08/2023 10:46:51 01/24/2024 text/html [facility] Annual Well-Women Visit Age 40-64Reported bypatient.Current [...] Mammography:up-to-date Bone Density Study:reviewed and documented in [facility] history Colorectal screening:up-to-date Diabetes screening:reviewed and documented in [facility] [employer] history; screening test: HgA1C Lipid screening:reviewed and documented in [facility] [employer] history;prior lipid screening was abnormal Thyroid screeningreviewed and documented in [facility] history; prior thyroid screening was normal Risk factors for cervical cancer ([facility]) Z91.89:no risk factors Medical risk factors:no historical risk factors Contraceptive Method:satisfied with current method Sexually Active:Yes[place] [address], [place], [address], [facility] VENTURE CAPITAL ANALYST 01/24/2024 14:42:46 OBGyn Episode Ob Episode Information Episode Created Date Number of Fetuses Patient Bloodtype Patient rh Status Prepregnancy Weight lbs Domestic Partner Domestic Partner Phone Father Name Cook Helper Juice Status 01/09/20 23 1 CLOSED Fetus Data First Name Last Name Admitted to NICU Weight (g) Sex Living Outcome Pediatric Complications Fetus ID Race Codes Race Delivery Type 3175.14 4 F Full Term [address] Gamal Calculation GAMAL Calculation Method Initial Gamal [...] Domestic Partner Domestic Partner Phone Father Name Cook Helper Juice Status 01/09/20 23 1 CLOSED Fetus Data First Name Last Name Admitted to NICU Weight (g) Sex Living Outcome Pediatric Complications Fetus ID Race Codes Race Delivery Type 3175.14 4 F Full Term [address]40 Gamal Calculation GAMAL Calculation Method Initial Gamal [...]
[2024-02-28 06:35] VITALS: BMI 27.6
[2024-02-28 06:55] VITALS: BP 128/80; PULSE 82; RESP 16; TEMP 37; O2SAT 99
[2024-02-28] MEDS: 0.9 % SODIUM CHLORIDE 500 ML 500 ML 100 ML IV ×2 (07:00→08:35)
[2024-02-28] MEDS: SODIUM CHLORIDE 0.9 % (FLUSH) 10 ML SYRINGE IVF (07:00)
--- NOTE | 2024-02-28 07:13 | SUR.PREOP ---
hcg lab refusal form signed.
--- NOTE | 2024-02-28 07:30 | CRLHL7_ITS ---
For Patients: As a result of the Cures Act, medical imaging exams and procedure reports are released immediately into your electronic medical record. You may view this report before your referring provider. If you have questions, please contact your health care provider. Indication: Port-a-cath Placement Technique: Two fluoroscopic images of the chest submitted. Fluoroscopic time 32.9 seconds. IMPRESSION: Fluoroscopic guidance for Port-A-Cath placement. Dictated by Paramjit Tsang MD @ 02/28/2024 9:06:51 AM (Electronically Signed)
--- NOTE | 2024-02-28 07:41 | W.PM.H&PU ---
History & Physical Update History & Physical Update H&P Reviewed and patient assessed: The following changes are noted below H&P Updates: Von Willebrand's test came back negative. PET CT reviewed with patient. Right tongue base with PET uptake as well as lef tovary. Will discuss with Oncology need for pelvic U/S and ENT consult
[2024-02-28] MEDS: CEFAZOLIN 2 GM INJ IVP (07:50)
[2024-02-28] MEDS: HEPARIN 500 UNIT/5 ML SYRINGE IVF (08:20)
[2024-02-28] MEDS: 0.9% SODIUM CHL 50 ML VIAL INJECTION (08:20)
[2024-02-28] MEDS: LIDOCAINE 1% MDV 20 ML INJECTION (08:20)
[2024-02-28] MEDS: BUPIVACAINE 0.5% 30 ML INJECTION (08:20)
--- NOTE | 2024-02-28 08:49 | CRLHL7_ITS ---
For Patients: As a result of the Century Cures Act, medical imaging exams and procedure reports are released immediately into your electronic medical record. You may view this report before your referring provider. If you have questions, please contact your health care provider. INDICATION: Status post port placement COMPARISON: None TECHNIQUE: Single view upright portable image of the chest FINDINGS: TUBES AND LINES: Left-sided port ending in the SVC HEART AND MEDIASTINUM: The heart size is normal. The mediastinal contour appears normal for patient age. LUNGS AND PLEURAL SPACES: The lungs appear normal.The pleural spaces are unremarkable. OSSEOUS STRUCTURES: Age-appropriate appearance. No acute focal finding. IMPRESSION: Left-sided port ending in the SVC. No pneumothorax. Dictated by Benny Stephenson MD @ 02/28/2024 9:19:54 AM (Electronically Signed)
--- NOTE | 2024-02-28 08:51 | P.GSOP_ITS ---
Operative Note Date of procedure: 02/28/24 Pre-op diagnosis: Left breast triple-negative invasive ductal carcinoma Post-op diagnosis: 1. Left breast triple-negative invasive ductal carcinoma 2. right neck hematoma Type of Procedure: 1) attempted right IJ port placement with ultrasound guidance 2) Left IJ port placement with ultrasound and fluoroscopic guidance. Indications: The patient is a 43-year-old female who was found to have a left breast mass on mammography. Biopsy showed this to be a triple negative invasive ductal carcinoma. Chemotherapy was recommended as 1st treatment. Port placement was requested to facilitate this. Procedure Description: After discussing the risks and benefits of the procedure, the patient signed informed consent.? The operative site was marked and the patient was brought to the operating room and placed on the operating table in supine position.? Care was taken to pad the patient's pressure points.?? The patient was then given sedation by anesthesia.?? The operative site was then prepped and draped in the usual sterile fashion.? A time-out was then performed. The patient's right internal jugular vein was visualized using ultrasound. Local anesthetic was injected into the skin overlying the vein. A skin varsha was created. Using ultrasound guidance, the vein was accessed percutaneously. The wire did not thread past the needle and the needle was removed. Ultrasound was placed back on the patient's neck. She appeared to have a hematoma. This was compressing the internal jugular vein. The carotid was examined. This appeared normal and was away from the vein when the vein was accessed, however because of the compressive nature of the hematoma there was concern for an arterial stick. Pressure was held to ensure the hematoma was not continuing to expand. The hematoma was visible as a fullness on her right neck laterally. Gentle pressure was held in the area for several minutes. The patient did not have stridor or any changes to her hemodynamics. After few minutes, the hematoma appearing stable on ultrasound and externally, I was able to visualize only a sliver of the vein which was compressed including superiorly and inferiorly to the stick site. Because of this I elected to move to the left side. Similarly, the left internal jugular vein was visualized using ultrasound. A skin varsha was created over the vein. The vein was accessed percutaneously using ultrasound guidance. Using Seldinger technique, a guidewire was threaded through the needle. The wire was confirmed in the IVC using fluoroscopy. Next, local anesthetic was injected into the skin below the clavicle and along the proposed tract to the neck incision. A skin incision was then made with a 15 blade and a pocket created in the subcutaneous tissue with cautery. A tunneler was then used to thread the catheter from the chest wall pocket to the neck incision. Once this was done fluoroscopy was brought into the field. Over the wire the tract was dilated using fluoroscopy. The wire and the dilator were then removed leaving the sheath in the vein. Through this, the catheter was threaded. Using fluoroscopy, the catheter was positioned into the distal SVC. The catheter was noted to flush and aspirate easily. The catheter was then con nected to the port. The port was placed in the pocket and secured in place with 2 0 Prolene sutures. It was noted to flush and aspirate easily. This was then locked with heparinized saline. The skin was closed with absorbable suture. Sterile dressings were applied. Instrument sponge and needle counts were correct at the end of the case. The patient was woken and taken to the recovery area in stable condition. Postprocedure in the recovery area, the patient did not have pneumothorax noted on x-ray. She was alert and conversive. She did not have stridor on exam or difficulty breathing. There were no neurologic deficits noted on facial nerve exam as well as strength in upper and lower extremities. Findings: 1. Right neck hematoma 2. Left IJ port placed in the SVC. Anesthesia: MAC Surgeon: Kasandra Tesfaye MD Estimated blood loss (mL): 5 Condition: stable Disposition: same day
[2024-02-28 08:53] VITALS: BP 105/73; PULSE 77; RESP 16; TEMP 36; O2SAT 99
--- NOTE | 2024-02-28 08:58 | W.ANESCHARGE ---
Anesthesia Charges Start Date/Time Anesthesia Start Date: 02/28/24 Anesthesia Start Time: 07:41 Stop Date/Time Anesthesia Stop Date: 02/28/24 Anesthesia Stop Time: 08:57
[2024-02-28 09:00] VITALS: BP 112/72; PULSE 68; RESP 16; O2SAT 100
[2024-02-28 09:15] VITALS: BP 108/70; PULSE 69; RESP 16; O2SAT 99
[2024-02-28 09:30] VITALS: BP 114/72; PULSE 72; RESP 16; O2SAT 99
[2024-02-28 09:45] VITALS: BP 114/69; PULSE 72; RESP 16; O2SAT 99
== END 2024-02-28 09:59 | disposition home or self-care (01) ==
PROVIDERS: PCP Obstetrics & Gynecology; Visit Provider Surgery
PROC: (CPT 36561; principal; 2024-02-28 07:30)
DX: Z45.2 Encounter for adjustment and management of vascular access device (principal); C50.412 Malignant neoplasm of upper-outer quadrant of left female breast; Z17.421 Hormone receptor negative with human epidermal growth factor receptor 2 negative status; S10.93XA Contusion of unspecified part of neck, initial encounter; I87.1 Compression of vein
CPT/HCPCS: 36561; 00532; 71045; 76000; 76998; J2003; C1788; J0665; J0690; J1100; J1642; J2250; J2405; J2704; J3010; J3490; J7030

== ENCOUNTER 2024-03-10 14:15 | Outpatient (CLI) | payer OTHER, SELFPAY ==
--- NOTE | 2024-03-10 14:00 | CRLHL7_ITS ---
For Patients: As a result of the Century Cures Act, medical imaging exams and procedure reports are released immediately into your electronic medical record. You may view this report before your referring provider. If you have questions, please contact your health care provider. INDICATION: PET uptake base of tongue. COMPARISON: None. TECHNIQUE: CT soft tissue neck with IV contrast. Isovue 370, 79 cc. FINDINGS: Normal bilateral parotid and submandibular glands. Normal thyroid gland. Nasopharynx and oropharynx are clear. No inflammation within the parapharyngeal fat pads or retropharyngeal space. Normal thickness of the epiglottis. Compared to the previous PET scan, no abnormal mass or enhancement at the base of tongue, particular on the right to account for the asymmetric uptake is seen on PET scan. Normal thickness of the epiglottis. Normal glottis with symmetric vocal cords. Airway is patent. Left Port-A-Cath with catheter tip partially visualize standing into the SCC. Lung apices are clear. Normal alignment of the cervical spine. No prevertebral soft tissue swelling. Visualized paranasal sinuses and mastoid air cells are unremarkable. IMPRESSION: 1. No discrete abnormal mass or enhancement at the base of tongue to correlate with the findings on previous PET scan. If there is further clinical concern consider follow-up with MRI without and with IV gadolinium for further evaluation 2. No adenopathy. 3. Normal deep soft tissues of the neck Please note that all CT scans at this facility use dose modulation, iterative reconstruction, and/or weight-based dosing when appropriate to reduce radiation dose to as low as reasonably achievable. Dictated by Paul Callahan MD @ 03/10/2024 4:05:35 PM (Electronically Signed)
== END 2024-03-10 14:16 | disposition home or self-care (01) ==
PROVIDERS: PCP Obstetrics & Gynecology; Visit Provider Internal Medicine Hematology & Oncology
DX: C50.919 Malignant neoplasm of unspecified site of unspecified female breast (principal); Z17.421 Hormone receptor negative with human epidermal growth factor receptor 2 negative status
CPT/HCPCS: 70491; Q9967

== ENCOUNTER 2024-08-03 08:45 | Outpatient (CLI) | payer OTHER, SELFPAY ==
--- NOTE | 2024-08-03 09:15 | CRLHL7_ITS ---
For Patients: As a result of the Century Cures Act, medical imaging exams and procedure reports are released immediately into your electronic medical record. You may view this report before your referring provider. If you have questions, please contact your health care provider. BILATERAL BREAST MRI WITHOUT AND WITH GADOLINIUM CLINICAL HISTORY: LEFT breast invasive ductal carcinoma diagnosed after ultrasound-guided biopsy of a mass at 3 o`clock, 7 cm from the nipple. Subsequent ultrasound-guided biopsies were performed at 2 o`clock 6 cm from the nipple in the LEFT breast and in the LEFT axilla which were both benign. Evaluate response to neoadjuvant chemotherapy. INDICATION FOR BREAST MRI: Evaluate response to neoadjuvant chemotherapy. COMPARISON STUDIES: Diagnostic LEFT mammogram and ultrasound 01/25/2024. Images from ultrasound-guided LEFT breast biopsy and post-biopsy mammogram 02/09/2024. Breast MRI 02/15/2024 and images from ultrasound of the LEFT breast and axilla and ultrasound-guided biopsy with post-biopsy mammogram 02/25/2024. CONTRAST: 15 mL IV Dotarem. TECHNIQUE: The patient was positioned prone using a breast coil. Multiple imaging sequences were obtained using 1-1.5 mm thick slices with no gap. The image sequences include T2-weighted STIR in the axial plane, T1-weighted nonfat-saturated gradient echo in the axial plane, pre- and post-contrast T1-weighted FLASH 3D with fat suppression in the axial plane, and T1-weighted FLASH high resolution 3D with fat suppression in the sagittal plane. Image post-processing was performed on a [employer] workstation. Complex 3D rendering including maximum intensity projections (MIPS) and volumetric renderings were obtained to optimize visualization of the extent of pathology and relationship to the nipple, skin, and chest wall. This aids in determining feasibility of breast conservation surgery. Subtraction, multiplanar reconstruction, mean curve determination, and angiogenesis mapping were also performed. The study was technically adequate. FINDINGS: Amount of Fibroglandular Tissue: Heterogeneous fibroglandular tissue. Breast Background Enhancement: Minimal. RIGHT Breast: There is no suspicious mass or non-mass enhancement. LEFT Breast: There is artifact from a biopsy marking clip at 3 o`clock, posterior depth. The previously seen enhancing mass and the associated non-mass enhancement have resolved. There is also artifact from a biopsy marking clip at 2 o`clock, 6 cm from the nipple, in the area of benign ultrasound-guided biopsy. There is no abnormal enhancement associated with this clip or elsewhere in the breasts. Lymph Nodes: No abnormal morphology lymph nodes. There is artifact from a marking clip in the LEFT axilla. IMPRESSIONS AND RECOMMENDATIONS: 1. Excellent imaging response to neoadjuvant chemotherapy. No residual abnormal enhancement in the LEFT breast. Continued surgical/oncologic management is recommended. 2. No MRI evidence of malignancy in the RIGHT breast. 3. No abnormal morphology lymph nodes. BI-RADS Category 6: Known Biopsy-Proven Malignancy. Dictated by Frannie Hastings MD @ 08/03/2024 2:53:16 PM /sp SP/Dictated by: Frannie Hastings MD @ 08/03/2024 2:58:00 PM (Electronically Signed)
== END 2024-08-03 08:46 | disposition home or self-care (01) ==
LOC: MRI 08:46
PROVIDERS: PCP Obstetrics & Gynecology; Visit Provider Surgery
DX: C50.912 Malignant neoplasm of unspecified site of left female breast (principal); Z17.421 Hormone receptor negative with human epidermal growth factor receptor 2 negative status
CPT/HCPCS: 77049; C8908; C8937; A9575

== ENCOUNTER 2024-08-03 09:00 | Outpatient (RCR) | payer OTHER, SELFPAY ==
--- NOTE | 2024-02-16 14:37 | ONC.NURNOTE ---
Plan of care: I called patient and reviewed next steps. 1. Brain MRI and ECHO 02/23 at [facility] 2. Port placement per Dr. Tesfaye's team, likely week of 02/27 3. Genetic counseling referral faxed to [facility]. They will call patient to schedule. 4. PET/CT orders and supporting documents faxed to [facility]. They will call patient to schedule. 5. Follow up with Dr. Santos 03/07 to review results and discuss final treatment planning. Patient also requesting financial resources due to high deductible insurance plan. [facility] will email resources directly to patient.
--- NOTE | 2024-03-08 10:31 | URNOTE ---
Request received for authorization for Doxorubicin (Adriamycin) ([id number]), cyclophosphamide (Cytoxan) (J9073), Palonosetron (Aloxi) (J2469), Fosaprepitant (Emend) (J1453), Pegfilgrastim-cbqv (Udenyca) (Q5111). Prior authorization is approved per [facility]. Per Rep. Yeimy Bhat 03/08/24 authorization is based on medical necessity approved by drug name and date range, they are not dose or frequency specific (Ref auth #'s below). Doxorubicin (Adriamycin) (J9000), cyclophosphamide (Cytoxan) (J9073), Palonosetron (Aloxi) (J2469), Fosaprepitant (Emend) (J1453) date range: 03/13/2024 to 03/13/2025, Auth#[id number]. Pegfilgrastim-cbqv (Udenyca) (Q5111) date range: 03/13/2024 to 09/10/2024, Auth#[id number].
[2024-03-10 13:09] LABS: Basophils Percent Auto 0.8 % (0.0-3.0); Eosinophils Percent Auto 1.2 % (0.0-7.0); Hematocrit* 37.6 % (33.0-51.0); Hemoglobin* 12.7 gm/dL (12.0-16.0); Immature Granulocytes Pct Auto 0.1 %; Lymphocytes Percent Auto 24.8 % (20-44); Mean Corpuscular HGB Conc 34 gm/dL (32-36); Mean Corpuscular Hemoglobin 32 pg (26-34); Mean Corpuscular Volume 95 fL (80-100); Monocytes Percent Auto 7.9 % (0.0-11.0); Neutrophils Percent Auto 65.2 % (42.0-72.0); Platelet Count* 314 K/uL (140-440); RDW Coefficient of Variation % 11.8 % (11.5-15.5); Red Blood Count* 3.94 m/uL (4.00-5.20); White Blood Count* 11.05 K/uL (4.50-11.00)
[2024-03-10 13:18] LABS: Slide Review Reflex No
[2024-03-10 13:22] LABS: Albumin* 4.7 g/dL (3.3-5.0); Chloride* 104 mmol/L (96-114); Potassium* 4.1 mmol/L (3.6-5.1); Sodium* 138 mmol/L (135-149)
[2024-03-10 13:25] LABS: Alanine Aminotransferase* 17 U/L (4-35); Alkaline Phosphatase* 53 U/L (40-150); Anion Gap 7 mEq/L (7-15); Aspartate Amino Transferase* 17 U/L (12-35); Bilirubin Total* 0.5 mg/dL (0.1-1.5); Blood Urea Nitrogen* 12 mg/dL (5-24); Carbon Dioxide* 27 mmol/L (20-32); Creatinine* 0.7 mg/dL (0.5-1.5); Est. Creatinine Clearance* 76.58; Estimated Glomerular Filt Rate 109 ml/min; Glucose* 101 mg/dL (60-115); Total Protein* 7.4 g/dL (6.0-8.3)
[2024-03-10 13:26] LABS: Calcium* 9.5 mg/dL (8.4-10.6)
[2024-03-10 14:29] LABS: HCG Quantitative* < 2.39 mIU/mL
[2024-03-13 07:57] VITALS: BP 123/80; PULSE 97; RESP 16; TEMP 36.7; O2SAT 99
[2024-03-13] MEDS: dexAMETHasone 4 MG TABLET 12 MG PO (08:31)
[2024-03-13] MEDS: PALONOSETRON 0.25 MG/5 ML inj IVP (08:51)
[2024-03-13] MEDS: FOSAPREPITANT 150 MG inj 150 MG in 0.9 % SODIUM CHLORIDE 250 ml 250 ML 510 MG IVPB (08:51)
[2024-03-13] MEDS: DOXOrubicin 2 MG/ML inj 100 MG IVP (09:30)
[2024-03-13] MEDS: cycloPHOSphamide 1,000 MG, TUBING SECONDARY 1 EACH in 0.9 % SODIUM CHLORIDE 250 ml 250 ML 510 MG IV (09:30)
[2024-03-13] MEDS: PEGFILGRASTIM-CBQV (ONBODY) 6 MG/0.6 ML SUBCUT (10:51)
--- NOTE | 2024-03-13 12:45 | ONC.NURNOTE ---
tolerated treatment well. Port easily accessed. reviewed home med instructions.
[2024-03-13] MEDS: HEPARIN 500 UNIT/5 ML SYRINGE IVF (12:46)
[2024-03-13] MEDS: SODIUM CHLORIDE 0.9 % (FLUSH) 10 ML SYRINGE IVF (12:46)
--- NOTE | 2024-03-14 11:13 | ONC.NURNOTE ---
Called pt to f/u [facility] yesterday. She notes she had a headache last night and today; reviewed that can be attributed to side effects of anti-emetics. She did not have sinus congestion/headache with Cytoxan infusion. She also notes she stopped her daily 1 cup/coffee caffeine intake on Wednesday, which may contribute. Denies nausea. Was able to eat some food last night but does notice taste changes/slight queasiness. No questions or concerns.
[2024-03-27 08:04] LABS: Basophils Absolute Auto 0.05 K/uL (0.00-0.30); Basophils Percent Auto 0.5 % (0.0-3.0); Eosinophils Absolute Auto 0.05 K/uL (0.00-0.50); Eosinophils Percent Auto 0.5 % (0.0-7.0); Hematocrit* 35.2 % (33.0-51.0); Hemoglobin* 11.9 gm/dL (12.0-16.0); Immature Granulocytes Abs Auto 0.31 K/uL (0.00-0.30); Immature Granulocytes Pct Auto 3.1 %; Lymphocytes Absolute Auto 2.59 K/uL (0.90-2.90); Lymphocytes Percent Auto 25.5 % (20-44); Mean Corpuscular HGB Conc 34 gm/dL (32-36); Mean Corpuscular Hemoglobin 32 pg (26-34); Mean Corpuscular Volume 95 fL (80-100); Monocytes Percent Auto 9.4 % (0.0-11.0); Platelet Count* 328 K/uL (140-440); RDW Coefficient of Variation % 12.1 % (11.5-15.5); Red Blood Count* 3.69 m/uL (4.00-5.20); White Blood Count* 10.15 K/uL (4.50-11.00)
[2024-03-27 08:06] LABS: Slide Review Reflex No
[2024-03-27 08:24] LABS: Albumin* 4.3 g/dL (3.3-5.0); Chloride* 106 mmol/L (96-114); Potassium* 3.9 mmol/L (3.6-5.1); Sodium* 138 mmol/L (135-149)
[2024-03-27 08:26] LABS: Anion Gap 9 mEq/L (7-15); Bilirubin Total* 0.1 mg/dL (0.1-1.5); Carbon Dioxide* 23 mmol/L (20-32); Creatinine* 0.6 mg/dL (0.5-1.5); Est. Creatinine Clearance* 89.35; Estimated Glomerular Filt Rate 113 ml/min
[2024-03-27 08:27] LABS: Alanine Aminotransferase* 22 U/L (4-35); Alkaline Phosphatase* 68 U/L (40-150); Aspartate Amino Transferase* 16 U/L (12-35); Blood Urea Nitrogen* 9 mg/dL (5-24); Calcium* 9.1 mg/dL (8.4-10.6); Glucose* 132 mg/dL (60-115); Total Protein* 6.7 g/dL (6.0-8.3)
[2024-03-27 08:46] LABS: HCG Quantitative* < 2.39 mIU/mL
[2024-03-27] MEDS: dexAMETHasone 4 MG TABLET 12 MG PO (09:04)
[2024-03-27] MEDS: PALONOSETRON 0.25 MG/5 ML inj IVP (09:24)
[2024-03-27] MEDS: FOSAPREPITANT 150 MG inj 150 MG in 0.9 % SODIUM CHLORIDE 250 ml 250 ML 800 MG IVPB (09:24)
[2024-03-27] MEDS: SODIUM CHLORIDE 0.9 % (FLUSH) 10 ML SYRINGE IVF ×2 (09:29→11:26)
[2024-03-27] MEDS: DOXOrubicin 2 MG/ML inj 100 MG IVP (10:09)
[2024-03-27] MEDS: cycloPHOSphamide 1,000 MG, TUBING SECONDARY 1 EACH in 0.9 % SODIUM CHLORIDE 250 ml 250 ML 255 MG IV (10:09)
[2024-03-27] MEDS: PEGFILGRASTIM-CBQV (ONBODY) 6 MG/0.6 ML SUBCUT (10:10)
[2024-03-27] MEDS: HEPARIN 500 UNIT/5 ML SYRINGE IVF (11:26)
[2024-04-10 08:16] LABS: Albumin* 4.5 g/dL (3.3-5.0); Chloride* 107 mmol/L (96-114); Potassium* 3.8 mmol/L (3.6-5.1); Sodium* 140 mmol/L (135-149)
[2024-04-10 08:18] LABS: Bilirubin Total* 0.1 mg/dL (0.1-1.5); Creatinine* 0.6 mg/dL (0.5-1.5); Est. Creatinine Clearance* 89.35; Estimated Glomerular Filt Rate 113 ml/min
[2024-04-10 08:19] LABS: Alanine Aminotransferase* 28 U/L (4-35); Alkaline Phosphatase* 75 U/L (40-150); Anion Gap 9 mEq/L (7-15); Aspartate Amino Transferase* 22 U/L (12-35); Blood Urea Nitrogen* 10 mg/dL (5-24); Calcium* 9.2 mg/dL (8.4-10.6); Carbon Dioxide* 24 mmol/L (20-32); Glucose* 112 mg/dL (60-115); Total Protein* 6.8 g/dL (6.0-8.3)
[2024-04-10 08:40] LABS: HCG Quantitative* < 2.39 mIU/mL
[2024-04-10 08:48] LABS: Basophils Absolute Auto 0.06 K/uL (0.00-0.30); Basophils Percent Auto 0.6 % (0.0-3.0); Eosinophils Absolute Auto 0.04 K/uL (0.00-0.50); Eosinophils Percent Auto 0.4 % (0.0-7.0); Hematocrit* 33.7 % (33.0-51.0); Hemoglobin* 11.5 gm/dL (12.0-16.0); Immature Granulocytes Abs Auto 0.85 K/uL (0.00-0.30); Immature Granulocytes Pct Auto 7.8 %; Lymphocytes Percent Auto 19.8 % (20-44); Mean Corpuscular HGB Conc 34 gm/dL (32-36); Mean Corpuscular Hemoglobin 33 pg (26-34); Mean Corpuscular Volume 96 fL (80-100); Monocytes Percent Auto 10.7 % (0.0-11.0); Neutrophils Absolute Auto 6.59 K/uL (1.7-7.0); Neutrophils Percent Auto 60.7 % (42.0-72.0); Platelet Count* 281 K/uL (140-440); RDW Coefficient of Variation % 12.9 % (11.5-15.5); Red Blood Count* 3.52 m/uL (4.00-5.20); White Blood Count* 10.85 K/uL (4.50-11.00)
[2024-04-10 08:50] LABS: Slide Review Reflex No
[2024-04-10] MEDS: dexAMETHasone 4 MG TABLET 12 MG PO (09:05)
[2024-04-10] MEDS: PALONOSETRON 0.25 MG/5 ML inj IVP (09:06)
[2024-04-10] MEDS: SODIUM CHLORIDE 0.9 % (FLUSH) 10 ML SYRINGE IVF ×2 (09:09→11:30)
[2024-04-10] MEDS: 0.9 % SODIUM CHLORIDE 500 ML IV (09:15)
[2024-04-10] MEDS: FOSAPREPITANT 150 MG inj 150 MG in 0.9 % SODIUM CHLORIDE 250 ml 250 ML 510 MG IVPB (09:23)
[2024-04-10] MEDS: DOXOrubicin 2 MG/ML inj 100 MG IVP (09:59)
[2024-04-10] MEDS: cycloPHOSphamide 1,000 MG, TUBING SECONDARY 1 EACH in 0.9 % SODIUM CHLORIDE 250 ml 250 ML 255 MG IV (10:20)
[2024-04-10] MEDS: PEGFILGRASTIM-CBQV (ONBODY) 6 MG/0.6 ML SUBCUT (10:52)
[2024-04-10] MEDS: HEPARIN 500 UNIT/5 ML SYRINGE IVF (11:30)
[2024-04-24 08:58] LABS: Basophils Percent Auto 0.8 % (0.0-3.0); Eosinophils Percent Auto 0.5 % (0.0-7.0); Hemoglobin* 10.9 gm/dL (12.0-16.0); Immature Granulocytes Pct Auto 9.6 %; Mean Corpuscular HGB Conc 34 gm/dL (32-36); Mean Corpuscular Hemoglobin 33 pg (26-34); Mean Corpuscular Volume 96 fL (80-100); Monocytes Percent Auto 9.9 % (0.0-11.0); Neutrophils Percent Auto 64.2 % (42.0-72.0); Platelet Count* 276 K/uL (140-440); RDW Coefficient of Variation % 14.2 % (11.5-15.5); Red Blood Count* 3.33 m/uL (4.00-5.20); White Blood Count* 13.07 K/uL (4.50-11.00)
[2024-04-24 09:00] LABS: Slide Review Reflex No
[2024-04-24 09:17] LABS: Albumin* 4.4 g/dL (3.3-5.0); Chloride* 103 mmol/L (96-114)
[2024-04-24 09:18] LABS: Sodium* 137 mmol/L (135-149)
[2024-04-24 09:20] LABS: Anion Gap 8 mEq/L (7-15); Aspartate Amino Transferase* 22 U/L (12-35); Bilirubin Total* 0.1 mg/dL (0.1-1.5); Carbon Dioxide* 26 mmol/L (20-32); Creatinine* 0.5 mg/dL (0.5-1.5); Est. Creatinine Clearance* 107.22; Estimated Glomerular Filt Rate 118 ml/min; Total Protein* 6.7 g/dL (6.0-8.3)
[2024-04-24 09:21] LABS: Alanine Aminotransferase* 28 U/L (4-35); Alkaline Phosphatase* 87 U/L (40-150); Blood Urea Nitrogen* 11 mg/dL (5-24); Calcium* 9.3 mg/dL (8.4-10.6); Glucose* 114 mg/dL (60-115)
[2024-04-24] MEDS: SODIUM CHLORIDE 0.9 % (FLUSH) 10 ML SYRINGE IVF ×2 (09:35→12:30)
[2024-04-24 09:43] LABS: HCG Quantitative* < 2.39 mIU/mL
[2024-04-24] MEDS: dexAMETHasone 4 MG TABLET 12 MG PO (10:21)
[2024-04-24] MEDS: 0.9 % SODIUM CHLORIDE 500 ML IV (10:21)
[2024-04-24] MEDS: PALONOSETRON 0.25 MG/5 ML inj IVP (10:22)
--- NOTE | 2024-04-24 10:30 | ONC.NURNOTE ---
I met with patient in the infusion center to discuss Paclitaxel. Side effects were discussed including but not limited to hypersensitivity reactions, neuropathy, joint pain, diarrhea and nail changes. Printed information was also provided. Patient provided cryotherapy supplies including, mittens, socks and ice packs. She was instructed to bring them to clinic frozen each week. Patient verbalizes understanding.
[2024-04-24] MEDS: FOSAPREPITANT 150 MG inj 150 MG in 0.9 % SODIUM CHLORIDE 250 ml 250 ML 510 MG IVPB (10:42)
[2024-04-24] MEDS: DOXOrubicin 2 MG/ML inj 100 MG IVP (11:20)
[2024-04-24] MEDS: cycloPHOSphamide 1,000 MG, TUBING SECONDARY 1 EACH in 0.9 % SODIUM CHLORIDE 250 ml 250 ML 340 MG IV (11:37)
[2024-04-24] MEDS: PEGFILGRASTIM-CBQV (ONBODY) 6 MG/0.6 ML SUBCUT (12:16)
[2024-04-24] MEDS: HEPARIN 500 UNIT/5 ML SYRINGE IVF (12:30)
--- NOTE | 2024-04-26 09:28 | URNOTE ---
Paclitaxel ([id number]) has been approved 05/08/2024-05/08/2025. Ref #[id number]
[2024-05-08] MEDS: SODIUM CHLORIDE 0.9 % (FLUSH) 10 ML SYRINGE IVF ×3 (08:35→12:30)
[2024-05-08 08:49] LABS: Basophils Absolute Auto 0.07 K/uL (0.00-0.30); Basophils Percent Auto 0.7 % (0.0-3.0); Eosinophils Absolute Auto 0.08 K/uL (0.00-0.50); Eosinophils Percent Auto 0.7 % (0.0-7.0); Hematocrit* 31.9 % (33.0-51.0); Hemoglobin* 10.8 gm/dL (12.0-16.0); Immature Granulocytes Pct Auto 6.6 %; Lymphocytes Percent Auto 15.8 % (20-44); Mean Corpuscular HGB Conc 34 gm/dL (32-36); Mean Corpuscular Hemoglobin 33 pg (26-34); Mean Corpuscular Volume 98 fL (80-100); Monocytes Percent Auto 13.6 % (0.0-11.0); Neutrophils Absolute Auto 6.69 K/uL (1.7-7.0); Neutrophils Percent Auto 62.6 % (42.0-72.0); Platelet Count* 238 K/uL (140-440); RDW Coefficient of Variation % 15.3 % (11.5-15.5); Red Blood Count* 3.26 m/uL (4.00-5.20); White Blood Count* 10.68 K/uL (4.50-11.00)
[2024-05-08 08:51] LABS: Slide Review Reflex No
[2024-05-08 09:27] LABS: Albumin* 4.5 g/dL (3.3-5.0); Chloride* 103 mmol/L (96-114); Potassium* 3.6 mmol/L (3.6-5.1); Sodium* 140 mmol/L (135-149)
[2024-05-08 09:29] LABS: Blood Urea Nitrogen* 9 mg/dL (5-24); Creatinine* 0.6 mg/dL (0.5-1.5); Est. Creatinine Clearance* 85.05; Estimated Glomerular Filt Rate 113 ml/min
[2024-05-08 09:30] LABS: Alanine Aminotransferase* 22 U/L (4-35); Alkaline Phosphatase* 84 U/L (40-150); Anion Gap 10 mEq/L (7-15); Aspartate Amino Transferase* 18 U/L (12-35); Bilirubin Total* 0.2 mg/dL (0.1-1.5); Calcium* 9.5 mg/dL (8.4-10.6); Carbon Dioxide* 27 mmol/L (20-32); Glucose* 114 mg/dL (60-115)
[2024-05-08 10:00] LABS: HCG Quantitative* < 2.39 mIU/mL
[2024-05-08] MEDS: ONDANSETRON 2 MG/ML inj 8 MG IVP (10:20)
[2024-05-08] MEDS: dexAMETHasone 10 MG/ML inj IVP (10:21)
[2024-05-08] MEDS: 0.9 % SODIUM CHLORIDE 250 ml IV (10:24)
[2024-05-08] MEDS: FAMOTIDINE 20 MG, diphenhydrAMINE 50 MG in 0.9 % SODIUM CHLORIDE 100 ml 100 ML 309 MG IVPB (10:37)
[2024-05-08] MEDS: HEPARIN 500 UNIT/5 ML SYRINGE IVF (12:30)
[2024-05-15 08:49] LABS: Basophils Absolute Auto 0.08 K/uL (0.00-0.30); Basophils Percent Auto 1.4 % (0.0-3.0); Eosinophils Absolute Auto 0.01 K/uL (0.00-0.50); Eosinophils Percent Auto 0.2 % (0.0-7.0); Hematocrit* 29.5 % (33.0-51.0); Hemoglobin* 9.9 gm/dL (12.0-16.0); Immature Granulocytes Abs Auto 0.04 K/uL (0.00-0.30); Immature Granulocytes Pct Auto 0.7 %; Lymphocytes Percent Auto 18.4 % (20-44); Mean Corpuscular HGB Conc 34 gm/dL (32-36); Mean Corpuscular Hemoglobin 33 pg (26-34); Mean Corpuscular Volume 99 fL (80-100); Monocytes Percent Auto 14.8 % (0.0-11.0); Neutrophils Absolute Auto 3.57 K/uL (1.7-7.0); Neutrophils Percent Auto 64.5 % (42.0-72.0); Platelet Count* 343 K/uL (140-440); RDW Coefficient of Variation % 15.2 % (11.5-15.5); Red Blood Count* 2.98 m/uL (4.00-5.20); Slide Review Reflex No; White Blood Count* 5.54 K/uL (4.50-11.00)
[2024-05-15 08:59] LABS: Albumin* 4.3 g/dL (3.3-5.0); Chloride* 105 mmol/L (96-114)
[2024-05-15 09:00] LABS: Potassium* 3.9 mmol/L (3.6-5.1); Sodium* 139 mmol/L (135-149)
[2024-05-15 09:02] LABS: Alanine Aminotransferase* 52 U/L (4-35); Alkaline Phosphatase* 61 U/L (40-150); Anion Gap 9 mEq/L (7-15); Aspartate Amino Transferase* 31 U/L (12-35); Bilirubin Total* 0.3 mg/dL (0.1-1.5); Blood Urea Nitrogen* 11 mg/dL (5-24); Calcium* 9.4 mg/dL (8.4-10.6); Carbon Dioxide* 25 mmol/L (20-32); Creatinine* 0.5 mg/dL (0.5-1.5); Est. Creatinine Clearance* 102.06; Estimated Glomerular Filt Rate 118 ml/min; Glucose* 109 mg/dL (60-115); Total Protein* 6.7 g/dL (6.0-8.3)
[2024-05-15 09:05] VITALS: BP 98/67; PULSE 79; RESP 16; TEMP 36.4; O2SAT 98
[2024-05-15 09:21] LABS: HCG Quantitative* < 2.39 mIU/mL
[2024-05-15] MEDS: dexAMETHasone 10 MG/ML inj IVP (09:42)
[2024-05-15] MEDS: 0.9 % SODIUM CHLORIDE 250 ml IV (09:43)
[2024-05-15] MEDS: ONDANSETRON 2 MG/ML inj 8 MG IVP (09:43)
[2024-05-15] MEDS: FAMOTIDINE 20 MG, diphenhydrAMINE 50 MG in 0.9 % SODIUM CHLORIDE 100 ml 100 ML 309 MG IVPB (10:05)
[2024-05-22 08:38] VITALS: BP 113/78; PULSE 93; RESP 16; TEMP 36.3; O2SAT 98
[2024-05-22 08:59] LABS: Basophils Absolute Auto 0.06 K/uL (0.00-0.30); Basophils Percent Auto 1.1 % (0.0-3.0); Eosinophils Absolute Auto 0.07 K/uL (0.00-0.50); Eosinophils Percent Auto 1.3 % (0.0-7.0); Hematocrit* 30.9 % (33.0-51.0); Hemoglobin* 10.3 gm/dL (12.0-16.0); Immature Granulocytes Abs Auto 0.02 K/uL (0.00-0.30); Immature Granulocytes Pct Auto 0.4 %; Lymphocytes Percent Auto 19.8 % (20-44); Mean Corpuscular HGB Conc 33 gm/dL (32-36); Mean Corpuscular Hemoglobin 33 pg (26-34); Mean Corpuscular Volume 99 fL (80-100); Monocytes Percent Auto 17.3 % (0.0-11.0); Neutrophils Absolute Auto 3.19 K/uL (1.7-7.0); Neutrophils Percent Auto 60.1 % (42.0-72.0); Platelet Count* 281 K/uL (140-440); Red Blood Count* 3.11 m/uL (4.00-5.20); White Blood Count* 5.31 K/uL (4.50-11.00)
[2024-05-22 09:07] LABS: Slide Review Reflex No
[2024-05-22 09:14] LABS: Chloride* 105 mmol/L (96-114)
[2024-05-22 09:15] LABS: Albumin* 4.5 g/dL (3.3-5.0); Potassium* 3.8 mmol/L (3.6-5.1); Sodium* 139 mmol/L (135-149)
[2024-05-22 09:17] LABS: Blood Urea Nitrogen* 8 mg/dL (5-24); Creatinine* 0.5 mg/dL (0.5-1.5); Est. Creatinine Clearance* 102.06; Estimated Glomerular Filt Rate 118 ml/min
[2024-05-22 09:18] LABS: Alanine Aminotransferase* 59 U/L (4-35); Alkaline Phosphatase* 52 U/L (40-150); Anion Gap 8 mEq/L (7-15); Aspartate Amino Transferase* 43 U/L (12-35); Bilirubin Total* 0.3 mg/dL (0.1-1.5); Calcium* 9.5 mg/dL (8.4-10.6); Carbon Dioxide* 26 mmol/L (20-32); Glucose* 110 mg/dL (60-115); Total Protein* 6.9 g/dL (6.0-8.3)
[2024-05-22 09:35] LABS: HCG Quantitative* < 2.39 mIU/mL
[2024-05-22] MEDS: ONDANSETRON 2 MG/ML inj 8 MG IVP (10:28)
[2024-05-22] MEDS: dexAMETHasone 10 MG/ML inj IVP (10:30)
[2024-05-22] MEDS: FAMOTIDINE 20 MG, diphenhydrAMINE 50 MG in 0.9 % SODIUM CHLORIDE 100 ml 100 ML 309 MG IVPB (10:33)
[2024-05-22] MEDS: 0.9 % SODIUM CHLORIDE 250 ml IV (11:32)
[2024-05-22] MEDS: HEPARIN 500 UNIT/5 ML SYRINGE IVF (11:33)
[2024-05-22] MEDS: SODIUM CHLORIDE 0.9 % (FLUSH) 10 ML SYRINGE IVF (11:33)
--- NOTE | 2024-05-22 13:16 | ONC.NURNOTE ---
states new mouth sores on left outside and inside of mouth. a couple of closed sores on lips. Laury called in a perscription for magic mouth. pt to let us know if worsen and cont. with swish and spit soda mouth wash
[2024-05-29] MEDS: SODIUM CHLORIDE 0.9 % (FLUSH) 10 ML SYRINGE IVF ×2 (08:01→09:04)
[2024-05-29 08:03] LABS: Basophils Absolute Auto 0.07 K/uL (0.00-0.30); Basophils Percent Auto 1.3 % (0.0-3.0); Eosinophils Absolute Auto 0.25 K/uL (0.00-0.50); Eosinophils Percent Auto 4.6 % (0.0-7.0); Hematocrit* 32.2 % (33.0-51.0); Hemoglobin* 10.7 gm/dL (12.0-16.0); Immature Granulocytes Abs Auto 0.07 K/uL (0.00-0.30); Immature Granulocytes Pct Auto 1.3 %; Lymphocytes Absolute Auto 1.18 K/uL (0.90-2.90); Lymphocytes Percent Auto 21.5 % (20-44); Mean Corpuscular HGB Conc 33 gm/dL (32-36); Mean Corpuscular Hemoglobin 33 pg (26-34); Mean Corpuscular Volume 99 fL (80-100); Monocytes Percent Auto 13.3 % (0.0-11.0); Neutrophils Absolute Auto 3.18 K/uL (1.7-7.0); Platelet Count* 265 K/uL (140-440); RDW Coefficient of Variation % 14.2 % (11.5-15.5); Red Blood Count* 3.24 m/uL (4.00-5.20); White Blood Count* 5.48 K/uL (4.50-11.00)
[2024-05-29 08:11] LABS: Slide Review Reflex No
[2024-05-29 08:19] LABS: Albumin* 4.4 g/dL (3.3-5.0); Chloride* 104 mmol/L (96-114); Potassium* 3.9 mmol/L (3.6-5.1); Sodium* 139 mmol/L (135-149)
[2024-05-29 08:22] LABS: Alanine Aminotransferase* 51 U/L (4-35); Alkaline Phosphatase* 57 U/L (40-150); Anion Gap 9 mEq/L (7-15); Aspartate Amino Transferase* 34 U/L (12-35); Bilirubin Total* 0.4 mg/dL (0.1-1.5); Blood Urea Nitrogen* 10 mg/dL (5-24); Calcium* 9.6 mg/dL (8.4-10.6); Carbon Dioxide* 26 mmol/L (20-32); Creatinine* 0.6 mg/dL (0.5-1.5); Est. Creatinine Clearance* 85.05; Estimated Glomerular Filt Rate 113 ml/min; Glucose* 110 mg/dL (60-115); Total Protein* 6.9 g/dL (6.0-8.3)
[2024-05-29 08:42] LABS: HCG Quantitative* < 2.39 mIU/mL
[2024-05-29] MEDS: 0.9 % SODIUM CHLORIDE 500 ML IV (09:04)
[2024-05-29] MEDS: ONDANSETRON 2 MG/ML inj 8 MG IVP (09:04)
[2024-05-29] MEDS: HEPARIN 500 UNIT/5 ML SYRINGE IVF (09:05)
[2024-05-29] MEDS: FAMOTIDINE 20 MG, diphenhydrAMINE 50 MG in 0.9 % SODIUM CHLORIDE 100 ml 100 ML 309 MG IVPB (09:12)
[2024-06-05 11:32] VITALS: BP 112/73; PULSE 85; RESP 20; TEMP 36.4; O2SAT 84
[2024-06-05 12:01] LABS: Basophils Absolute Auto 0.06 K/uL (0.00-0.30); Eosinophils Absolute Auto 0.26 K/uL (0.00-0.50); Eosinophils Percent Auto 4.3 % (0.0-7.0); Hematocrit* 29.2 % (33.0-51.0); Hemoglobin* 9.8 gm/dL (12.0-16.0); Immature Granulocytes Abs Auto 0.02 K/uL (0.00-0.30); Immature Granulocytes Pct Auto 0.3 %; Lymphocytes Absolute Auto 1.26 K/uL (0.90-2.90); Lymphocytes Percent Auto 20.9 % (20-44); Mean Corpuscular HGB Conc 34 gm/dL (32-36); Mean Corpuscular Hemoglobin 34 pg (26-34); Mean Corpuscular Volume 100 fL (80-100); Monocytes Percent Auto 12.3 % (0.0-11.0); Neutrophils Absolute Auto 3.68 K/uL (1.7-7.0); Neutrophils Percent Auto 61.2 % (42.0-72.0); Platelet Count* 232 K/uL (140-440); RDW Coefficient of Variation % 13.6 % (11.5-15.5); Red Blood Count* 2.92 m/uL (4.00-5.20); White Blood Count* 6.02 K/uL (4.50-11.00)
[2024-06-05 12:08] LABS: Slide Review Reflex No
[2024-06-05 12:21] LABS: Albumin* 4.3 g/dL (3.3-5.0); Chloride* 103 mmol/L (96-114); Potassium* 3.9 mmol/L (3.6-5.1); Sodium* 138 mmol/L (135-149)
[2024-06-05 12:24] LABS: Alanine Aminotransferase* 32 U/L (4-35); Alkaline Phosphatase* 63 U/L (40-150); Anion Gap 9 mEq/L (7-15); Aspartate Amino Transferase* 27 U/L (12-35); Bilirubin Total* 0.5 mg/dL (0.1-1.5); Blood Urea Nitrogen* 12 mg/dL (5-24); Calcium* 9.4 mg/dL (8.4-10.6); Carbon Dioxide* 26 mmol/L (20-32); Creatinine* 0.6 mg/dL (0.5-1.5); Estimated Glomerular Filt Rate 113 ml/min; Glucose* 89 mg/dL (60-115); Total Protein* 6.7 g/dL (6.0-8.3)
[2024-06-05 12:52] LABS: HCG Quantitative* < 2.39 mIU/mL
[2024-06-05] MEDS: DEXAMETHASONE 10 MG/ML PF IVP (13:27)
[2024-06-05] MEDS: ONDANSETRON 2 MG/ML inj 8 MG IVP (13:31)
[2024-06-05] MEDS: FAMOTIDINE 20 MG, diphenhydrAMINE 50 MG in 0.9 % SODIUM CHLORIDE 100 ml 100 ML 309 MG IVPB (13:35)
[2024-06-05] MEDS: 0.9 % SODIUM CHLORIDE 250 ml IV (15:20)
[2024-06-05] MEDS: SODIUM CHLORIDE 0.9 % (FLUSH) 10 ML SYRINGE IVF (15:25)
[2024-06-05] MEDS: HEPARIN 500 UNIT/5 ML SYRINGE IVF (15:25)
[2024-06-12 08:28] VITALS: BP 113/73; PULSE 82; RESP 18; TEMP 36.2; O2SAT 98
[2024-06-12 08:37] VITALS: BP 113/73; PULSE 82; RESP 18; TEMP 36.2; O2SAT 98
[2024-06-12 08:38] LABS: Basophils Absolute Auto 0.05 K/uL (0.00-0.30); Eosinophils Absolute Auto 0.22 K/uL (0.00-0.50); Eosinophils Percent Auto 4.3 % (0.0-7.0); Hematocrit* 31.3 % (33.0-51.0); Hemoglobin* 10.5 gm/dL (12.0-16.0); Immature Granulocytes Abs Auto 0.01 K/uL (0.00-0.30); Immature Granulocytes Pct Auto 0.2 %; Lymphocytes Absolute Auto 1.14 K/uL (0.90-2.90); Lymphocytes Percent Auto 22.1 % (20-44); Mean Corpuscular HGB Conc 34 gm/dL (32-36); Mean Corpuscular Hemoglobin 34 pg (26-34); Mean Corpuscular Volume 100 fL (80-100); Monocytes Percent Auto 13.4 % (0.0-11.0); Neutrophils Absolute Auto 3.04 K/uL (1.7-7.0); Platelet Count* 259 K/uL (140-440); Red Blood Count* 3.12 m/uL (4.00-5.20); White Blood Count* 5.15 K/uL (4.50-11.00)
[2024-06-12 08:40] LABS: Slide Review Reflex No
[2024-06-12 08:52] LABS: Albumin* 4.4 g/dL (3.3-5.0); Chloride* 102 mmol/L (96-114); Potassium* 3.9 mmol/L (3.6-5.1); Sodium* 139 mmol/L (135-149)
[2024-06-12 08:54] LABS: Blood Urea Nitrogen* 10 mg/dL (5-24); Creatinine* 0.6 mg/dL (0.5-1.5); Est. Creatinine Clearance* 85.05; Estimated Glomerular Filt Rate 113 ml/min
[2024-06-12 08:55] LABS: Alanine Aminotransferase* 49 U/L (4-35); Alkaline Phosphatase* 53 U/L (40-150); Anion Gap 11 mEq/L (7-15); Aspartate Amino Transferase* 36 U/L (12-35); Bilirubin Total* 0.4 mg/dL (0.1-1.5); Calcium* 9.6 mg/dL (8.4-10.6); Carbon Dioxide* 26 mmol/L (20-32); Glucose* 106 mg/dL (60-115); Total Protein* 6.8 g/dL (6.0-8.3)
[2024-06-12 09:11] LABS: HCG Quantitative* < 2.39 mIU/mL
[2024-06-12] MEDS: 0.9 % SODIUM CHLORIDE 250 ml IV (09:30)
[2024-06-12] MEDS: SODIUM CHLORIDE 0.9 % (FLUSH) 10 ML SYRINGE IVF (09:30)
[2024-06-12] MEDS: HEPARIN 500 UNIT/5 ML SYRINGE IVF (09:30)
[2024-06-12] MEDS: DEXAMETHASONE 10 MG/ML PF IVP (09:31)
[2024-06-12] MEDS: ONDANSETRON 2 MG/ML inj 8 MG IVP (09:31)
[2024-06-12] MEDS: FAMOTIDINE 20 MG, diphenhydrAMINE 50 MG in 0.9 % SODIUM CHLORIDE 100 ml 100 ML 309 MG IVPB (09:41)
[2024-06-19 08:45] VITALS: BP 121/79; PULSE 82; RESP 18; TEMP 36.9; O2SAT 98
[2024-06-19 08:53] LABS: Basophils Absolute Auto 0.05 K/uL (0.00-0.30); Eosinophils Percent Auto 4.1 % (0.0-7.0); Hematocrit* 32.6 % (33.0-51.0); Hemoglobin* 10.8 gm/dL (12.0-16.0); Immature Granulocytes Abs Auto 0.01 K/uL (0.00-0.30); Immature Granulocytes Pct Auto 0.2 %; Lymphocytes Absolute Auto 1.17 K/uL (0.90-2.90); Lymphocytes Percent Auto 24.1 % (20-44); Mean Corpuscular HGB Conc 33 gm/dL (32-36); Mean Corpuscular Hemoglobin 33 pg (26-34); Mean Corpuscular Volume 100 fL (80-100); Monocytes Percent Auto 11.3 % (0.0-11.0); Neutrophils Absolute Auto 2.88 K/uL (1.7-7.0); Neutrophils Percent Auto 59.3 % (42.0-72.0); Platelet Count* 302 K/uL (140-440); RDW Coefficient of Variation % 12.9 % (11.5-15.5); Red Blood Count* 3.25 m/uL (4.00-5.20); White Blood Count* 4.86 K/uL (4.50-11.00)
[2024-06-19 08:59] LABS: Slide Review Reflex No
[2024-06-19 09:05] LABS: Albumin* 4.4 g/dL (3.3-5.0); Chloride* 104 mmol/L (96-114); Potassium* 4.1 mmol/L (3.6-5.1); Sodium* 137 mmol/L (135-149)
[2024-06-19 09:08] LABS: Alanine Aminotransferase* 42 U/L (4-35); Alkaline Phosphatase* 56 U/L (40-150); Anion Gap 8 mEq/L (7-15); Aspartate Amino Transferase* 31 U/L (12-35); Bilirubin Total* 0.3 mg/dL (0.1-1.5); Blood Urea Nitrogen* 11 mg/dL (5-24); Calcium* 9.7 mg/dL (8.4-10.6); Carbon Dioxide* 25 mmol/L (20-32); Creatinine* 0.6 mg/dL (0.5-1.5); Est. Creatinine Clearance* 85.05; Estimated Glomerular Filt Rate 113 ml/min; Glucose* 119 mg/dL (60-115); Total Protein* 6.9 g/dL (6.0-8.3)
[2024-06-19 09:26] LABS: HCG Quantitative* < 2.39 mIU/mL
[2024-06-19] MEDS: DEXAMETHASONE 10 MG/ML PF IVP (09:43)
[2024-06-19] MEDS: ONDANSETRON 2 MG/ML inj 8 MG IVP (09:43)
[2024-06-19] MEDS: FAMOTIDINE 20 MG, diphenhydrAMINE 50 MG in 0.9 % SODIUM CHLORIDE 100 ml 100 ML 309 MG IVPB (09:58)
[2024-06-19] MEDS: 0.9 % SODIUM CHLORIDE 250 ml IV (11:15)
[2024-06-19] MEDS: SODIUM CHLORIDE 0.9 % (FLUSH) 10 ML SYRINGE IVF (11:45)
[2024-06-19] MEDS: HEPARIN 500 UNIT/5 ML SYRINGE IVF (11:45)
[2024-06-26 08:51] LABS: Basophils Absolute Auto 0.03 K/uL (0.00-0.30); Basophils Percent Auto 0.6 % (0.0-3.0); Eosinophils Absolute Auto 0.17 K/uL (0.00-0.50); Eosinophils Percent Auto 3.6 % (0.0-7.0); Hematocrit* 32.5 % (33.0-51.0); Hemoglobin* 10.8 gm/dL (12.0-16.0); Immature Granulocytes Abs Auto 0.01 K/uL (0.00-0.30); Immature Granulocytes Pct Auto 0.2 %; Lymphocytes Absolute Auto 1.25 K/uL (0.90-2.90); Lymphocytes Percent Auto 26.7 % (20-44); Mean Corpuscular HGB Conc 33 gm/dL (32-36); Mean Corpuscular Hemoglobin 33 pg (26-34); Mean Corpuscular Volume 100 fL (80-100); Monocytes Percent Auto 12.2 % (0.0-11.0); Neutrophils Absolute Auto 2.66 K/uL (1.7-7.0); Neutrophils Percent Auto 56.7 % (42.0-72.0); Platelet Count* 287 K/uL (140-440); RDW Coefficient of Variation % 12.7 % (11.5-15.5); Red Blood Count* 3.24 m/uL (4.00-5.20); White Blood Count* 4.69 K/uL (4.50-11.00)
[2024-06-26 08:54] LABS: Slide Review Reflex No
[2024-06-26] MEDS: SODIUM CHLORIDE 0.9 % (FLUSH) 10 ML SYRINGE IVF ×2 (09:00→12:20)
[2024-06-26 09:11] LABS: Albumin* 4.3 g/dL (3.3-5.0); Chloride* 105 mmol/L (96-114); Potassium* 3.9 mmol/L (3.6-5.1); Sodium* 139 mmol/L (135-149)
[2024-06-26 09:14] LABS: Alanine Aminotransferase* 35 U/L (4-35); Alkaline Phosphatase* 52 U/L (40-150); Anion Gap 9 mEq/L (7-15); Aspartate Amino Transferase* 29 U/L (12-35); Bilirubin Total* 0.4 mg/dL (0.1-1.5); Blood Urea Nitrogen* 7 mg/dL (5-24); Calcium* 9.7 mg/dL (8.4-10.6); Carbon Dioxide* 25 mmol/L (20-32); Creatinine* 0.6 mg/dL (0.5-1.5); Est. Creatinine Clearance* 85.05; Estimated Glomerular Filt Rate 113 ml/min; Glucose* 117 mg/dL (60-115); Total Protein* 6.8 g/dL (6.0-8.3)
[2024-06-26 09:34] LABS: HCG Quantitative* < 2.39 mIU/mL
[2024-06-26] MEDS: 0.9 % SODIUM CHLORIDE 250 ml IV (10:10)
[2024-06-26] MEDS: ONDANSETRON 2 MG/ML inj 8 MG IVP (10:18)
[2024-06-26] MEDS: DEXAMETHASONE 10 MG/ML PF IVP (10:18)
[2024-06-26] MEDS: FAMOTIDINE 20 MG, diphenhydrAMINE 50 MG in 0.9 % SODIUM CHLORIDE 100 ml 100 ML 309 MG IVPB (10:25)
[2024-06-26] MEDS: HEPARIN 500 UNIT/5 ML SYRINGE IVF (12:20)
[2024-07-03 08:29] VITALS: BP 120/76; PULSE 87; RESP 18; TEMP 36.7; O2SAT 99
[2024-07-03 09:14] LABS: Basophils Absolute Auto 0.05 K/uL (0.00-0.30); Basophils Percent Auto 0.9 % (0.0-3.0); Eosinophils Absolute Auto 0.17 K/uL (0.00-0.50); Eosinophils Percent Auto 3.1 % (0.0-7.0); Hematocrit* 32.6 % (33.0-51.0); Hemoglobin* 10.8 gm/dL (12.0-16.0); Immature Granulocytes Abs Auto 0.02 K/uL (0.00-0.30); Immature Granulocytes Pct Auto 0.4 %; Lymphocytes Absolute Auto 1.34 K/uL (0.90-2.90); Lymphocytes Percent Auto 24.7 % (20-44); Mean Corpuscular HGB Conc 33 gm/dL (32-36); Mean Corpuscular Hemoglobin 33 pg (26-34); Mean Corpuscular Volume 101 fL (80-100); Monocytes Percent Auto 12.5 % (0.0-11.0); Neutrophils Absolute Auto 3.17 K/uL (1.7-7.0); Neutrophils Percent Auto 58.4 % (42.0-72.0); Platelet Count* 284 K/uL (140-440); RDW Coefficient of Variation % 12.5 % (11.5-15.5); Red Blood Count* 3.24 m/uL (4.00-5.20); White Blood Count* 5.43 K/uL (4.50-11.00)
[2024-07-03 09:18] LABS: Slide Review Reflex No
[2024-07-03 09:35] LABS: Albumin* 4.2 g/dL (3.3-5.0); Chloride* 105 mmol/L (96-114); Potassium* 3.8 mmol/L (3.6-5.1); Sodium* 138 mmol/L (135-149)
[2024-07-03 09:38] LABS: Alanine Aminotransferase* 34 U/L (4-35); Alkaline Phosphatase* 56 U/L (40-150); Anion Gap 8 mEq/L (7-15); Aspartate Amino Transferase* 27 U/L (12-35); Bilirubin Total* 0.2 mg/dL (0.1-1.5); Blood Urea Nitrogen* 11 mg/dL (5-24); Calcium* 9.5 mg/dL (8.4-10.6); Carbon Dioxide* 25 mmol/L (20-32); Creatinine* 0.5 mg/dL (0.5-1.5); Est. Creatinine Clearance* 102.06; Estimated Glomerular Filt Rate 118 ml/min; Glucose* 117 mg/dL (60-115); Total Protein* 6.6 g/dL (6.0-8.3)
[2024-07-03 09:56] LABS: HCG Quantitative* < 2.39 mIU/mL
[2024-07-03] MEDS: ONDANSETRON 2 MG/ML inj 8 MG IVP (10:20)
[2024-07-03] MEDS: 0.9 % SODIUM CHLORIDE 250 ml IV (10:21)
[2024-07-03] MEDS: DEXAMETHASONE 10 MG/ML PF IVP (10:45)
[2024-07-03] MEDS: FAMOTIDINE 20 MG, diphenhydrAMINE 50 MG in 0.9 % SODIUM CHLORIDE 100 ml 100 ML 309 MG IVPB (10:48)
[2024-07-10 09:07] LABS: Basophils Absolute Auto 0.05 K/uL (0.00-0.30); Eosinophils Absolute Auto 0.17 K/uL (0.00-0.50); Eosinophils Percent Auto 3.3 % (0.0-7.0); Hematocrit* 34.3 % (33.0-51.0); Hemoglobin* 11.4 gm/dL (12.0-16.0); Immature Granulocytes Abs Auto 0.01 K/uL (0.00-0.30); Immature Granulocytes Pct Auto 0.2 %; Lymphocytes Absolute Auto 1.27 K/uL (0.90-2.90); Lymphocytes Percent Auto 24.9 % (20-44); Mean Corpuscular HGB Conc 33 gm/dL (32-36); Mean Corpuscular Hemoglobin 33 pg (26-34); Mean Corpuscular Volume 100 fL (80-100); Monocytes Percent Auto 12.3 % (0.0-11.0); Neutrophils Absolute Auto 2.98 K/uL (1.7-7.0); Neutrophils Percent Auto 58.3 % (42.0-72.0); Platelet Count* 290 K/uL (140-440); RDW Coefficient of Variation % 12.3 % (11.5-15.5); Red Blood Count* 3.43 m/uL (4.00-5.20); White Blood Count* 5.11 K/uL (4.50-11.00)
[2024-07-10 09:17] LABS: Slide Review Reflex No
[2024-07-10 09:19] VITALS: BP 124/76; PULSE 98; RESP 16; TEMP 36.7; O2SAT 92
[2024-07-10 09:36] LABS: Albumin* 4.4 g/dL (3.3-5.0); Chloride* 105 mmol/L (96-114); Potassium* 4.2 mmol/L (3.6-5.1); Sodium* 138 mmol/L (135-149)
[2024-07-10 09:38] LABS: Blood Urea Nitrogen* 16 mg/dL (5-24); Creatinine* 0.6 mg/dL (0.5-1.5); Est. Creatinine Clearance* 85.05; Estimated Glomerular Filt Rate 113 ml/min
[2024-07-10 09:39] LABS: Alanine Aminotransferase* 29 U/L (4-35); Alkaline Phosphatase* 56 U/L (40-150); Anion Gap 9 mEq/L (7-15); Aspartate Amino Transferase* 23 U/L (12-35); Bilirubin Total* 0.3 mg/dL (0.1-1.5); Calcium* 9.7 mg/dL (8.4-10.6); Carbon Dioxide* 24 mmol/L (20-32); Glucose* 99 mg/dL (60-115); Total Protein* 6.9 g/dL (6.0-8.3)
[2024-07-10 10:03] LABS: HCG Quantitative* < 2.39 mIU/mL
[2024-07-10] MEDS: DEXAMETHASONE 10 MG/ML PF IVP (10:40)
[2024-07-10] MEDS: ONDANSETRON 2 MG/ML inj 8 MG IVP (10:40)
[2024-07-10] MEDS: FAMOTIDINE 20 MG, diphenhydrAMINE 50 MG in 0.9 % SODIUM CHLORIDE 100 ml 100 ML 309 MG IVPB (10:41)
[2024-07-10] MEDS: SODIUM CHLORIDE 0.9 % (FLUSH) 10 ML SYRINGE IVF (10:41)
[2024-07-10] MEDS: HEPARIN 500 UNIT/5 ML SYRINGE IVF (10:41)
[2024-07-10] MEDS: 0.9 % SODIUM CHLORIDE 250 ml IV (13:07)
[2024-07-17 08:19] LABS: Basophils Absolute Auto 0.07 K/uL (0.00-0.30); Basophils Percent Auto 1.2 % (0.0-3.0); Eosinophils Absolute Auto 0.23 K/uL (0.00-0.50); Eosinophils Percent Auto 4.1 % (0.0-7.0); Hemoglobin* 11.6 gm/dL (12.0-16.0); Immature Granulocytes Abs Auto 0.03 K/uL (0.00-0.30); Immature Granulocytes Pct Auto 0.5 %; Lymphocytes Absolute Auto 1.34 K/uL (0.90-2.90); Lymphocytes Percent Auto 23.9 % (20-44); Mean Corpuscular HGB Conc 33 gm/dL (32-36); Mean Corpuscular Hemoglobin 33 pg (26-34); Mean Corpuscular Volume 99 fL (80-100); Monocytes Percent Auto 12.8 % (0.0-11.0); Neutrophils Absolute Auto 3.22 K/uL (1.7-7.0); Neutrophils Percent Auto 57.5 % (42.0-72.0); Platelet Count* 295 K/uL (140-440); RDW Coefficient of Variation % 12.5 % (11.5-15.5); Red Blood Count* 3.53 m/uL (4.00-5.20); White Blood Count* 5.61 K/uL (4.50-11.00)
[2024-07-17 08:25] LABS: Slide Review Reflex No
[2024-07-17 08:38] LABS: Albumin* 4.3 g/dL (3.3-5.0); Chloride* 107 mmol/L (96-114); Sodium* 140 mmol/L (135-149)
[2024-07-17 08:39] LABS: Potassium* 4.1 mmol/L (3.6-5.1)
[2024-07-17 08:41] LABS: Alanine Aminotransferase* 36 U/L (4-35); Alkaline Phosphatase* 52 U/L (40-150); Anion Gap 6 mEq/L (7-15); Aspartate Amino Transferase* 27 U/L (12-35); Bilirubin Total* 0.3 mg/dL (0.1-1.5); Blood Urea Nitrogen* 9 mg/dL (5-24); Carbon Dioxide* 27 mmol/L (20-32); Creatinine* 0.5 mg/dL (0.5-1.5); Est. Creatinine Clearance* 102.06; Estimated Glomerular Filt Rate 118 ml/min; Total Protein* 6.9 g/dL (6.0-8.3)
[2024-07-17 08:42] LABS: Calcium* 9.6 mg/dL (8.4-10.6); Glucose* 98 mg/dL (60-115)
[2024-07-17 08:59] LABS: HCG Quantitative* < 2.39 mIU/mL
[2024-07-17] MEDS: 0.9 % SODIUM CHLORIDE 250 ml IV (09:15)
[2024-07-17] MEDS: SODIUM CHLORIDE 0.9 % (FLUSH) 10 ML SYRINGE IVF ×2 (09:20→11:44)
[2024-07-17] MEDS: ONDANSETRON 2 MG/ML inj 8 MG IVP (09:24)
[2024-07-17] MEDS: dexAMETHasone 10 MG/ML inj IVP (09:24)
[2024-07-17] MEDS: FAMOTIDINE 20 MG, diphenhydrAMINE 50 MG in 0.9 % SODIUM CHLORIDE 100 ml 100 ML 309 MG IVPB (09:27)
[2024-07-17] MEDS: PACLitaxeL 120 MG, TUBING PRIMARY 1 EACH, In-line 0.2 micron filter set 1 EACH in 0.9 %... 270 MG IV (10:10)
[2024-07-17] MEDS: HEPARIN 500 UNIT/5 ML SYRINGE IVF (11:44)
[2024-07-25 08:44] VITALS: BP 107/72; PULSE 88; RESP 17; TEMP 36.9; O2SAT 98
[2024-07-25] MEDS: SODIUM CHLORIDE 0.9 % (FLUSH) 10 ML SYRINGE IVF ×2 (08:50→12:27)
[2024-07-25 09:17] LABS: Basophils Absolute Auto 0.04 K/uL (0.00-0.30); Basophils Percent Auto 0.8 % (0.0-3.0); Eosinophils Absolute Auto 0.12 K/uL (0.00-0.50); Eosinophils Percent Auto 2.4 % (0.0-7.0); Hematocrit* 35.4 % (33.0-51.0); Hemoglobin* 11.8 gm/dL (12.0-16.0); Immature Granulocytes Abs Auto 0.01 K/uL (0.00-0.30); Immature Granulocytes Pct Auto 0.2 %; Lymphocytes Absolute Auto 1.36 K/uL (0.90-2.90); Lymphocytes Percent Auto 27.5 % (20-44); Mean Corpuscular HGB Conc 33 gm/dL (32-36); Mean Corpuscular Hemoglobin 33 pg (26-34); Mean Corpuscular Volume 98 fL (80-100); Monocytes Percent Auto 13.8 % (0.0-11.0); Neutrophils Absolute Auto 2.73 K/uL (1.7-7.0); Neutrophils Percent Auto 55.3 % (42.0-72.0); Platelet Count* 282 K/uL (140-440); RDW Coefficient of Variation % 12.6 % (11.5-15.5); Red Blood Count* 3.63 m/uL (4.00-5.20); White Blood Count* 4.94 K/uL (4.50-11.00)
[2024-07-25 09:21] LABS: Albumin* 4.3 g/dL (3.3-5.0); Chloride* 104 mmol/L (96-114); Slide Review Reflex No
[2024-07-25 09:22] LABS: Sodium* 138 mmol/L (135-149)
[2024-07-25 09:24] LABS: Blood Urea Nitrogen* 12 mg/dL (5-24); Creatinine* 0.6 mg/dL (0.5-1.5); Est. Creatinine Clearance* 85.05; Estimated Glomerular Filt Rate 113 ml/min
[2024-07-25 09:25] LABS: Alanine Aminotransferase* 46 U/L (4-35); Alkaline Phosphatase* 52 U/L (40-150); Anion Gap 7 mEq/L (7-15); Aspartate Amino Transferase* 36 U/L (12-35); Bilirubin Total* 0.4 mg/dL (0.1-1.5); Calcium* 9.9 mg/dL (8.4-10.6); Carbon Dioxide* 27 mmol/L (20-32); Glucose* 101 mg/dL (60-115); Total Protein* 6.8 g/dL (6.0-8.3)
[2024-07-25 09:41] LABS: HCG Quantitative* < 2.39 mIU/mL
[2024-07-25] MEDS: 0.9 % SODIUM CHLORIDE 250 ml IV (10:20)
[2024-07-25] MEDS: DEXAMETHASONE 10 MG/ML PF IVP (10:29)
[2024-07-25] MEDS: ONDANSETRON 2 MG/ML inj 8 MG IVP (10:31)
[2024-07-25] MEDS: FAMOTIDINE 20 MG, diphenhydrAMINE 50 MG in 0.9 % SODIUM CHLORIDE 100 ml 100 ML 309 MG IVPB (10:32)
[2024-07-25] MEDS: PACLitaxeL 120 MG, TUBING PRIMARY 1 EACH, In-line 0.2 micron filter set 1 EACH in 0.9 %... 270 MG IV (11:07)
[2024-07-25] MEDS: HEPARIN 500 UNIT/5 ML SYRINGE IVF (12:27)
[2024-08-03] MEDS: HEPARIN 500 UNIT/5 ML SYRINGE IVF (10:50)
[2024-08-03] MEDS: SODIUM CHLORIDE 0.9 % (FLUSH) 10 ML SYRINGE IVF (10:50)
== END 2024-08-14 23:59 | disposition home or self-care (01) ==
LOC: CCIC 09:00
PROVIDERS: Physician Assistant; PCP Obstetrics & Gynecology; Referring Provider Obstetrics & Gynecology; Visit Provider Internal Medicine Hematology & Oncology
DX: C50.912 Malignant neoplasm of unspecified site of left female breast; Z17.421 Hormone receptor negative with human epidermal growth factor receptor 2 negative status
CPT/HCPCS: 36415; 36591; 77049; 80053; 84702; 85025; 96367; 96368; 96375; 96377; 96411; 96413; 99203; 99205; 99211; 99214; 99215; C8908; C8937; G0463; J9000; J9073; A9270; A9575; J1100; J1200; J1308; J1453; J1642; J2405; J2469; J7030; J7050; J9267; Q5111; S0028

== ENCOUNTER 2024-09-05 06:12 | Day surgery (SDC) | payer OTHER, SELFPAY ==
[2024-09-05] VITALS (43 sets, daily range): BP systolic 63–150; BP diastolic 35–89; PULSE 64–103; RESP 12–16; TEMP 35.7–37.3; O2SAT 93–100; BMI 26.2
[2024-09-05] MEDS: SODIUM CHLORIDE 0.9 % (FLUSH) 10 ML SYRINGE IVF (07:00)
[2024-09-05] MEDS: LACTATED RINGERS 1000 ML 1,000 ML 100 ML IV ×3 (07:00→20:49)
--- NOTE | 2024-09-05 07:45 | CRLHL7_ITS ---
For Patients: As a result of the Century Cures Act, medical imaging exams and procedure reports are released immediately into your electronic medical record. You may view this report before your referring provider. If you have questions, please contact your health care provider. INDICATION: Left-sided breast cancer. Injection for sentinel lymph node scintigraphy. Informed consent was obtained by the on-site staff. The on-site staff discussed the risks and benefits of the procedure. The patient agreed to proceed. [place] Protocol: A. Pre-procedure verification complete: Yes 1-relevant information/documentation available, reviewed and properly matched to the patient; 2-consent accurate and complete, 3-equipment and supplies available. B. Site marking complete: Yes Site marked if not in continuous attendance with patient. C. TIME OUT completed: Yes Time Out was conducted just prior to starting procedure to verify the eight required elements: 1-patient identity, 2-consent accurate and complete, 3-position, 4-correct side/site marked (if applicable), 5-procedure, 6-relevant images/results properly labeled and displayed (if applicable), 7-antibiotics/irrigation fluids (if applicable), 8-safety precautions, 9-laboratory results were reviewed. Utilizing sterile technique, Dr. Kasandra Tesfaye injected 968 microcuries of Tc-99m filtered Sulfur Colloid within an intradermal location superolateral to the left nipple areolar complex. No immediate complications were documented. No subsequent imaging. IMPRESSION: Left-sided breast injection by Dr. Tesfaye for sentinel lymph node scintigraphy. Ezekiel Melendez M.D. Diagnostic/Nuclear Medicine Radiologist [email or web address] Transcribed: 9:37 am DW/Dictated by: Ezekiel Melendez MD @ 09/05/2024 9:32:00 AM (Electronically Signed)
[2024-09-05 07:58] LABS: HCG Qualitative Serum* Negative (Negative)
[2024-09-05] MEDS: ISOSULFAN BLUE 5 ML VIAL INJECTION (08:38)
--- NOTE | 2024-09-05 08:53 | W.PM.NB ---
Nerve Block Nerve Block Time Seen by Provider: 08:40 Date Seen: 09/05/24 Type of block requested by surgeon for post-operative analgesia: intercostal and intercostal add on Side: bilateral Time out performed: Yes Verification of patient name: Yes Verification of date of : Yes Site marking: site marked Name of person performing procedure: Garth Continuous monitoring Was continuous monitoring of O2 sat, B/P, rn cardiac cath, recorded every 15 minutes?: Yes Procedure Checklist: sterile prep, needles and gloves Ultrasound guided. Images saved: Yes Medications given in 5ml increments after negative aspiration: Marcaine %: 0.25 mL: 30 Needle gauge: 20 and Exparel Decadron (mg): 20 Patient tolerated procedure well: Yes Block Charges Block Charge (with Pro Fee): Intercostal Nerve Block (bilateral) Use of Ultrasound Machine for Block: Yes- US Guidance/pain block
--- NOTE | 2024-09-05 08:56 | P.ANES_ITS ---
Anesthesia Charges Start Date/Time Anesthesia Start Date: 09/05/24 Anesthesia Start Time: 08:29 Stop Date/Time Anesthesia Stop Date: 09/05/24 Anesthesia Stop Time: 12:25 Coding CPT Codes CPT Codes: ANESTH SURGERY OF SHOULDER - 81377 ([id number]) P1 - NORMAL HEALTHY PATIENT, QK - MATH AND PHYSICS INSTRUCTOR 2-4 CNCRNT ANES PROC, QX - HEAVY EQUIPMENT MECHANIC SVEvie W/ MED DIRECTION
--- NOTE | 2024-09-05 08:56 | W.ANESCHARGE ---
Anesthesia Charges Start Date/Time Anesthesia Start Date: 09/05/24 Anesthesia Start Time: 08:29 Stop Date/Time Anesthesia Stop Date: 09/05/24 Anesthesia Stop Time: 12:25 Coding CPT Codes CPT Codes: ANESTH SURGERY OF SHOULDER - 77313 ([id number]) P1 - NORMAL HEALTHY PATIENT, QK - HIMS MANAGER 2-4 CNCRNT ANES PROC, QX - ELECTRIC FREIGHT CAR OPERATOR SVEvie W/ MED DIRECTION
--- NOTE | 2024-09-05 10:23 | CRLHL7_ITS ---
For Patients: As a result of the Century Cures Act, medical imaging exams and procedure reports are released immediately into your electronic medical record. You may view this report before your referring provider. If you have questions, please contact your health care provider. LEFT BREAST X-RAY MASTECTOMY SPECIMEN CLINICAL HISTORY: LEFT breast specimen, mastectomy, LEFT breast cancer. 44-year-old patient. COMPARISON: 08/03/2024 MRI. FINDINGS: 11 images of the LEFT mastectomy specimen submitted. HydroMARK clip and oval clip located within the specimen. IMPRESSION: Both biopsy clips are present in the specimen. ACR not applicable. Dictated by Paramjit Tsang MD @ 09/05/2024 11:36:39 AM /sp SP/Dictated by: Paramjit Tsang MD @ 09/05/2024 11:36:00 AM (Electronically Signed)
--- NOTE | 2024-09-05 10:31 | CRLHL7_ITS ---
For Patients: As a result of the Cures Act, medical imaging exams and procedure reports are released immediately into your electronic medical record. You may view this report before your referring provider. If you have questions, please contact your health care provider. LEFT BREAST X-RAY SPECIMEN CLINICAL HISTORY: LEFT sentinel nodes - LEFT breast cancer. COMPARISON: MRI 08/03/2024, ultrasound-guided axillary lymph node biopsy from 02/25/2024. FINDINGS: Three radiograph specimen images submitted. Lymph nodes are present within the specimens. No biopsy clip. IMPRESSION: No biopsy clip within the submitted specimens. ACR not applicable. Dictated by Paramjit Tsang MD @ 09/05/2024 11:37:39 AM /sp SP/Dictated by: Paramjit Tsang MD @ 09/05/2024 11:37:00 AM (Electronically Signed)
--- NOTE | 2024-09-05 10:43 | SUR.OPER ---
family () updated via phonecall
--- NOTE | 2024-09-05 12:28 | P.ANES_ITS ---
Anesthesia Charges Start Date/Time Anesthesia Start Date: 09/05/24 Anesthesia Start Time: 08:29 Stop Date/Time Anesthesia Stop Date: 09/05/24 Anesthesia Stop Time: 12:25 Coding CPT Codes CPT Codes: ANESTH SURGERY OF SHOULDER - 51587 ([id number]) P1 - NORMAL HEALTHY PATIENT, QK - TREE TAPPING LABORER 2-4 CNCRNT ANES PROC, QX - FOAM CUTTING SUPERVISOR SVEvie W/ MED DIRECTION
--- NOTE | 2024-09-05 12:28 | W.ANESCHARGE ---
Anesthesia Charges Start Date/Time Anesthesia Start Date: 09/05/24 Anesthesia Start Time: 08:29 Stop Date/Time Anesthesia Stop Date: 09/05/24 Anesthesia Stop Time: 12:25 Coding CPT Codes CPT Codes: ANESTH SURGERY OF SHOULDER - 06307 ([id number]) P1 - NORMAL HEALTHY PATIENT, QK - HOG RAISER 2-4 CNCRNT ANES PROC, QX - DISPATCHER TOW TRUCK SVEvie W/ MED DIRECTION
--- NOTE | 2024-09-05 12:46 | PM.GSPRC ---
Operative Note Date of procedure: 09/05/24 Pre-op diagnosis: Left breast triple negative invasive ductal carcinoma status post neoadjuvant chemotherapy Post-op diagnosis: Same Type of Procedure: 1. Bilateral mastectomy 2. Left axillary sentinel lymph node biopsy Indications: The patient is a 44-year-old female who was found on screening mammogram to have a suspicious 11 mm mass in her left breast. She underwent biopsy in this was found to be a grade 3 invasive ductal carcinoma, triple negative. MRI showed an additional area in the left breast as well as a lymph node with mild cortical thickening. These were both biopsied and found to be negative for malignancy. She underwent neoadjuvant chemotherapy. Follow-up MRI showed excellent response. After discussion of surgical options, she elected to proceed with bilateral mastectomy with delayed reconstruction. Procedure Description: After discussion of risks and benefits, the patient was brought to the operating room and placed supine on the operating table. General anesthesia was induced. Pectoralis blocks were then performed bilaterally by Dr. Liang. Please see his note for details. 1 hr to incision, I injected technetium radiotracer was into the dermis of the left breast just above the areola. 10 min prior to the incision, I injected 3 ml isosulfan blue dye into the dermis above the areola. This was massaged for 3 min. Once this was completed, the area was prepped and draped sterilely. A time-out was then completed. We began on the left. I had previously marked patient with transverse, symmetric incisions an skin sparing fashion. Subcutaneous flaps were created using cautery. Care was taken to stay in the a vascular plane between the breast tissue in the subcutaneous tissue. Dissection was taken superiorly to the clavicle, medially to the sternum, inferiorly to the inframammary fold, and laterally to the latissimus. Once the flaps were created, the breast was taken off of the chest wall, taking the pectoralis fascia with. Small bleeding vessels were cauterized. This was marked with a stitch at the superior aspect and sent for margins. Attention was then turned to the sentinel lymph node biopsy. The probe was brought into the field. A strong signal was noted and dissection was taken down through the clavipectoral fascia into the axillary fat. The probe was used to identify a blue lymphatic channel. This was followed down and a hot node was encountered. This was carefully dissected free of the surrounding fat using cautery. The signal was measured at 4000 ex vivo. The probe was placed back into the wound bed. There was ongoing signal. An additional node adjacent to the 1st node was excised. This had a signal of 300 ex vivo. The probe was placed back into the axilla and no further signal was noted. No additional blue nodes were noted. Of note, on the inferior aspect of the axilla along the chest wall at the posterior aspect of the breast there was some firm tissue. It appeared as though there was a lymph node here. This was excised. There was no signal with the probe. These lymph nodes were then sent for x-ray though no clip was seen (the patient had previously undergone biopsy of a left axillary lymph node which had come back as benign). The left breast was also sent for mammographies and 2 clips were seen from the prior 2 breast biopsies. At this point, frozen section came back showing no malignancy in any of the sentinel lymph nodes. The left breast was examined and no residual tumor was identified. I examined the chest wall. The tumor was noted on MRI to be well within the breast parenchyma, however, there remained a firm area of tissue on the inferior and lateral chest wall at the inferior aspect of the axilla, I elected to excise this as well and send as an additional specimen. This was carefully dissected off of the chest wall and underlying structures and marked with ink for orientation. The anterior aspect which would have been attached to the breast tissue/mastectomy specimen which was removed was marked with sutures. I did deliver this to the pathologist myself with a diagram to explain the relationship to the breast tissue. Attention was then turned to the right side. Clean gloves and instruments were then obtained prior to proceeding. An identical incision was made and dissection was taken down into the subcutaneous tissue creating skin flaps superiorly to the clavicle, medially to the sternum, inferiorly to the inframammary fold and laterally to the latissimus. The breast tissue was then removed from the pectoralis muscle, taking the pectoralis fascia. Hemostasis was achieved with cautery. A superior stitch was placed to orient the specimen and it was sent to pathology. No obvious lesions were noted on gross pathology. At this point, both wound beds were examined for hemostasis which was excellent. Balta channel drains were then placed through stab incisions on the lateral chest wall. Both incisions were then closed with 3-0 Vicryl dermal and 4-0 Monocryl running subcuticular suture. Steri-Strips and a pressure wrap were then applied. The patient was then woken and transported to the recovery area in stable condition. ? The patient tolerated the procedure well. Findings: 1. Left mastectomy without any residual tumor noted - 2 biopsy clips seen on mammography 2. Left axillary sentinel lymph nodes - no biopsy clip seen on mammography. Negative on frozen section Surgeon: Kasandra Tesfaye MD Estimated blood loss (mL): 50 Additional Specimen Information: 1. Left breast mastectomy, stitch superior 2. Left axillary sentinel lymph nodes 3. Right breast mastectomy stitch superior 4. Additional left breast posterior/lateral margin, stitches indicating anterior orientation, where attached to left mastectomy specimen Condition: stable Disposition: PACU [place] Node Biopsy for Breast Cancer Operation Performed with Curative Intent: Yes Tracers used to Identify sentinel nodes in the upfront surgery (non-neoadjuvant) setting: N/A Tracers used to identify sentinel nodes in the neoadjuvant setting: Dye and Radioactive Tracer All nodes (colored or non-colored) present at the end of a dye filled lymphatic channel were removed: Yes All significantly radioactive nodes were removed: Yes All palpably suspicious nodes were removed: Yes Biopsy proven positive nodes marked with clips prior to chemotherapy were identified and removed: Not Applicable
[2024-09-05] MEDS: HYDROCODONE-ACETAMIN 5-325 MG 1 TAB PO ×2 (13:45→17:58)
[2024-09-05] MEDS: LACTATED RINGERS 1000 ML 1,000 ML 125 ML IV ×3 (13:46→23:29)
--- NOTE | 2024-09-05 15:05 | PC.NURSE ---
Pt is pleasant to care for. Doing well post-op. VSS. Denies pain. Denies nausea. Tolerating clear liquids at this time. is at bedside. Pt is resting well.
[2024-09-05] MEDS: LACTATED RINGERS 1000 ML 1,000 ML IV (19:45)
[2024-09-05 20:01] LABS: Hemoglobin* 10.7 gm/dL (12.0-16.0)
[2024-09-05 20:33] LABS: Hemoglobin* 10.5 gm/dL (12.0-16.0)
--- NOTE | 2024-09-05 20:38 | PM.CBS ---
Code Blue Summary Code Summary Date of code call: 09/05/24 Time of code call: 08:01 Code event: hypotension Duration of CPR: NONE PERFORMED, patient remained alert with a pulse Brief history of events (including suspected etiology): Bilateral mastectomy today. Sudden onset of swelling of right breast, then felt light headed. Suspected rapidly developing post surgical complication of hematoma of right breast. Nurse took BP which was systolic of 62-63. Chelsie became diaphoretic and very pale. I was in patient's room with her nurse at 7:55pm and remained there for the entirety of the code. Chelsie did not lose conciousness, she remained oriented and able to speak clearly. She did not stop breathing or lose a pulse. Code was called at 20:01 for significant hypotension and rapidly developing hemorrhagic shock. LR 1L bolus was given in existing IV in right hand at 1000 mL/hr. Patient was moved to the bed and placed in Trendelenburg. Hgb was drawn stat and a 2nd IV was established in the left antecubital. 1 unit of O-negative blood was given through that IV as soon as it was started. I spoke with Dr. Tesfaye over the phone who was on her way to take the patient to the OR. Pressure was placed over the patient's swollen right breast. The patient's color improved, she was no longer diaphoretic, and heart rate and blood pressure stabilized. After having gotten the 1 unit of blood rapidly along with the IV fluid bolus, her heart rate was 100 and blood pressure was 140/70. I updated her , Jay, and her 2 daughters, and they came in the room to be with her while we waited for the OR crew and Dr. Tesfaye. Time Seen by Provider: 19:55 Date Seen: 09/05/24 Disposition: other (to OR with Dr. Tesfaye) Family notified: Yes ( and daughters at bedside)
--- NOTE | 2024-09-05 21:04 | PM.EN ---
Chart Event Note Chart Event Note: Called by our and that patient had increased swelling noted on her right chest that occurred this evening. Planned for return to OR for emergent hematoma evacuation. OR crew called. In the meantime, patient became hypotensive and diaphoretic. Please see Dr. Duque's note for details. Received 1 unit of blood and 1 L of lactated Ringer's. Pressure placed on the chest. Hemoglobin was noted to be 10. Blood pressure was 66 systolic at its lowest, however with fluids, and supine position came up to 140 systolic. Right chest wall with ecchymosis noted superiorly and fullness. Patient brought emergently to the operating room for right chest wall hematoma evacuation.
--- NOTE | 2024-09-05 21:25 | PC.NURSE ---
At 1900 RN assessed drains/chest. WNL. At 1945 patient informed RN that she noted some swelling on right upper chest. RN noted swelling above cintia wrap and small amount of bruising along right lateral edge of chest. Notified surgeon via phone, planned to take patient back to OR. Patient then reported feeling slight dizzy/lightheaded in chair and B/P had dropped - see VS record- rapid response called, Dr. Duque hospitalist at bedside, Hgb drawn, LR wide open. Patient was then lifted from chair to bed and placed in Trendelenburg. SENIOR CHEMICAL PROCESS ENGINEER placed 2nd IV line in left AC and 1 unit of O negative blood was administer via gravity/pressure. Patient reported chills, bear hugger applied. Dr. Tesfaye updated via phone. Pressure applied to right anterior chest wall per surgeon instruction. Patient color improved, reports feeling better, and VS improved (see record). Dr. Tesfaye to bedside and patient taken to OR. Family loving/supportive at bedside, updated.
--- NOTE | 2024-09-05 22:08 | PM.GSPRC ---
Operative Note Date of procedure: 09/05/24 Pre-op diagnosis: Right breast hematoma status post mastectomy Post-op diagnosis: Same Type of Procedure: Right breast hematoma evacuation Indications: The patient is a 44-year-old female who underwent bilateral mastectomy for triple negative invasive ductal carcinoma of the left breast earlier today. She did well postoperatively, however in the evening she was noted to have swelling of her right chest wall. I hematoma was noted and plans were made to return to the operating room. In the meantime she became diaphoretic and hypotensive. She did have fluids and 1 unit of blood given with improvement in vital signs. She was then taken to the operating room emergently for hematoma evacuation and to stop any ongoing bleeding. Procedure Description: The patient was brought to the operating room and placed on the operating table in supine position.? Care was taken to pad the patient's pressure points.?? The patient was then intubated by anesthesia.?? The operative site was then prepped and draped in the usual sterile fashion.? A time-out was then performed. The right breast incision was opened using a scalpel and a hematoma was encountered. There did appear to be fresh blood within the cavity. Clot was evacuated and a lap sponge was placed within. This was removed and immediately an arterial bleed was noted from the lateral edge of the pectoralis muscle. This was oversewn with 3-0 Vicryl using a piece of Surgicel as a pledget. The wound was examined. There was small areas of diffuse oozing in the subcutaneous in on the pectoralis muscle. These were cauterized. There was another area of bleeding adjacent to the initial vessel which was similarly oversewn with 3-0 Vicryl with a Surgicel pledget. The wound was irrigated with saline and all of the clot removed. A sponge was then placed in the wound and left for 5 minutes. The sponge was removed and the cavity was examined. There appeared to be no ongoing bleeding. Charles was then placed throughout the wound and on the pectoralis muscle. The drain which had been placed at the prior surgery had remained in place this was position again in the wound. The skin was then closed with 3-0 Vicryl dermal and 4-0 Monocryl running subcuticular suture. Steri-Strips were applied over the incision. A pressure dressing was then applied. The patient was then woken and transported to the recovery area in stable condition. ? The patient tolerated the procedure well. Findings: 370 mL of clot and blood found within the right mastectomy cavity Anesthesia: GETA Surgeon: Kasandra Tesfaye MD Estimated blood loss (mL): 370 Condition: stable Disposition: PACU
--- NOTE | 2024-09-05 22:12 | P.ANES_ITS ---
Anesthesia Charges Start Date/Time Anesthesia Start Date: 09/05/24 Anesthesia Start Time: 20:49 Stop Date/Time Anesthesia Stop Date: 09/05/24 Anesthesia Stop Time: 22:11 Summary Emergency: POLYSOMNOGRAPHIC TECHNOLOGIST Coding CPT Codes CPT Codes: ANESTH SURGERY OF SHOULDER - 83145 ([id number]) P1 - NORMAL HEALTHY PATIENT, QZ - POLYSOMNOGRAPHIC TECHNOLOGIST SV W/O EQUIPMENT SUPERINTENDENT BY Additional Codes: Summary - Emergency: POLYSOMNOGRAPHIC TECHNOLOGIST ([id number])
--- NOTE | 2024-09-05 22:12 | W.ANESCHARGE ---
Anesthesia Charges Start Date/Time Anesthesia Start Date: 09/05/24 Anesthesia Start Time: 20:49 Stop Date/Time Anesthesia Stop Date: 09/05/24 Anesthesia Stop Time: 22:11 Summary Emergency: BINDERY TECHNICIAN Coding CPT Codes CPT Codes: ANESTH SURGERY OF SHOULDER - 75673 ([id number]) P1 - NORMAL HEALTHY PATIENT, QZ - BINDERY TECHNICIAN SV W/O EXECUTIVE CHAIRMAN BY Additional Codes: Summary - Emergency: BINDERY TECHNICIAN ([id number])
[2024-09-06] VITALS (9 sets, daily range): BP systolic 104–130; BP diastolic 59–80; PULSE 83–99; RESP 16; TEMP 36.4–37.2; O2SAT 95–98
--- NOTE | 2024-09-06 00:51 | PC.NURSE ---
1 unit PRBC transfused at 2010 by SENIOR ENGINEERING TEAM LEADER Ramonkristi Liang
--- NOTE | 2024-09-06 01:07 | PC.NURSE ---
Pt. returned from OR. VSS. No complaints of chest pain or dizziness. Family present. Up to BR SBA tolerated well. Voided 800cc. In good spirits. Geovanny wrap intact no drainage noted. Slight ecchymosis on R lateral chest wall.
[2024-09-06] MEDS: HYDROCODONE-ACETAMIN 5-325 MG 1 TAB PO ×3 (01:55→14:25)
[2024-09-06] MEDS: ACETAMINOPHEN 325 MG TABLET 650 MG PO (06:10)
--- NOTE | 2024-09-06 06:52 | PC.NURSE ---
Pt alert and oriented x3. Afebrile. Pt?reports 1/10 breast pain, pain managed with PRN medications. Pt?s chest dressings are CDI.?Pt is up SBA with IV pole, voiding, and tolerating a reg diet. Pt reported her right ear felt like ?It clogged or underwater?, managed with chewing gum. Pt reported pressure and cramping in abdomen, offered pain medications pt declined, pt bowl sounds are active, and pt reports passing gas, added Senna per pt request. ?
[2024-09-06 07:20] LABS: Hematocrit* 30.4 % (33.0-51.0); Hemoglobin* 10.2 gm/dL (12.0-16.0); Immature Granulocytes Pct Auto 0.1 %; Mean Corpuscular HGB Conc 34 gm/dL (32-36); Mean Corpuscular Hemoglobin 32 pg (26-34); Mean Corpuscular Volume 95 fL (80-100); RDW Coefficient of Variation % 13.5 % (11.5-15.5); Red Blood Count* 3.21 m/uL (4.00-5.20); White Blood Count* 15.05 K/uL (4.50-11.00)
[2024-09-06 07:22] LABS: Immature Granulocytes Abs Auto 0.00 K/uL (0.00-0.30); Lymphocytes Absolute Auto 1.80 K/uL (0.90-2.90); Slide Review Reflex No
[2024-09-06] MEDS: DOCUSATE SODIUM 100 MG CAPSULE PO (09:29)
--- NOTE | 2024-09-06 10:02 | PM.DS1 ---
DS: Providers Provider Date Seen: 09/06/24 Primary care physician: Yesenia Degroot MD Attending Physician on discharge: Kasandra Tesfaye MD DS: Diagnosis Discharge Diagnosis (1) Triple negative breast cancer: Status: Acute (2) S/P bilateral mastectomy: Status: Acute (3) Post-operative hemorrhage: Status: Acute DS: Summary Hospital Course Hospital Course: Aydee is a 44-year-old female who underwent bilateral mastectomy and left axillary sentinel lymph node biopsy on 09/05/2024 for triple negative breast cancer status post neoadjuvant chemotherapy. Unfortunately in the evening she developed increased swelling on her chest wall on the right side. She became diaphoretic and hypotensive. She was given fluids and 1 unit of blood with improvement in blood pressure. She was taken emergently to the OR for hematoma evacuation. She was found to have approximately 370 mL of hematoma as well as active bleeding from a small vessel on the lateral pectoralis muscle. This was controlled with suture ligation. She remained stable overnight and hemoglobin also remained stable the following day on recheck with no sign of hematoma reaccumulation. She was able to ambulate without difficulty and was deemed safe for discharge home. Time Spent with Patient Time attestation: Total time spent providing and/or coordinating discharge services: Exam Narrative: Exam Narrative: General appearance: Alert, cooperative, and in no distress Eyes: PERRLA, eye lids clear, and sclera white HENT Head: Normocephalic Ears: External ears normal Pulmonary: Breathing nonlabored on room air Cardiovascular Heart: Regular rate Chest: Ecchymosis noted on right upper outer chest. No significant hematoma accumulation noted in either wound bed. Incisions are clean without erythema. She has had scant output from either drain overnight. Extremities: warm and well perfused Musculoskeletal: Extremities: Upper: Both upper extremities have normal joint range of motion and intact strength. Lower: Both lower extremities have normal joint range of motion and intact strength. Skin: Normal skin color, texture, and turgor. Neurologic: No focal deficits Psychiatric: Alert, oriented, cooperative, normal affect. Const: Vital Signs, click to edit/add: Vital Signs - 24 hr 09/05/24 10:48 09/05/24 12:20 09/05/24 12:25 Temperature 97.7 F 96.2 F L Pulse Rate 68 68 Pulse Rate [Left P ulse Oximeter] 90 Respiratory Rate 14 14 14 Blood Pressure 114/74 109/69 Blood Pressure [Ri ght Arm] 127/77 Pulse Oximetry 94 93 96 Oxygen Delivery Me thod Room Air Room Air 09/05/24 12:30 09/05/24 12:35 09/05/24 12:40 Temperature Pulse Rate 69 64 83 Pulse Rate [Left P ulse Oximeter] Respiratory Rate 14 14 14 Blood Pressure 107/67 106/65 112/72 Blood Pressure [Ri ght Arm] Pulse Oximetry 96 94 99 Oxygen Delivery Me thod Room Air Room Air Room Air 09/05/24 12:45 09/05/24 12:50 09/05/24 13:00 Temperature 97.3 F L Pulse Rate 71 73 Pulse Rate [Left P ulse Oximeter] 64 Respiratory Rate 14 14 14 Blood Pressure 106/72 Blood Pressure [Ri ght Arm] 122/82 Pulse Oximetry 99 99 99 Oxygen Delivery Me thod Room Air Room Air Room Air 09/05/24 13:15 09/05/24 13:30 09/05/24 13:45 Temperature Pulse Rate Pulse Rate [Left P ulse Oximeter] 72 75 78 Respiratory Rate 16 16 16 Blood Pressure Blood Pressure [Ri ght Arm] 124/83 120/89 127/86 Pulse Oximetry 99 100 100 Oxygen Delivery Me thod Room Air 09/05/24 14:00 09/05/24 14:30 09/05/24 15:00 Temperature 98.7 F Pulse Rate Pulse Rate [Left P ulse Oximeter] 76 74 80 Respiratory Rate 16 16 16 Blood Pressure Blood Pressure [Ri ght Arm] 126/83 125/81 132/79 Pulse Oximetry 100 100 98 Oxygen Delivery Me thod Room Air Room Air Room Air 09/05/24 15:00 09/05/24 16:00 09/05/24 17:00 Temperature 97.5 F L Pulse Rate Pulse Rate [Left P ulse Oximeter] 90 95 Respiratory Rate 16 16 16 Blood Pressure Blood Pressure [Ri ght Arm] 113/61 135/74 Pulse Oximetry 98 97 97 Oxygen Delivery Me thod Room Air Room Air Room Air 09/05/24 18:47 09/05/24 19:55 09/05/24 19:57 Temperature Pulse Rate Pulse Rate [Left P ulse Oximeter] 95 64 78 Respiratory Rate 16 16 16 Blood Pressure Blood Pressure [Ri ght Arm] 121/77 66/35 L 63/45 L Pulse Oximetry 97 97 97 Oxygen Delivery Me thod Room Air Room Air Room Air 09/05/24 20:00 09/05/24 20:07 09/05/24 20:10 Temperature Pulse Rate Pulse Rate [Left P ulse Oximeter] 77 88 84 Respiratory Rate 16 16 16 Blood Pressure Blood Pressure [Ri ght Arm] 79/42 L 140/70 H 128/75 Pulse Oximetry 97 97 97 Oxygen Delivery Me thod Room Air Room Air Room Air 09/05/24 20:11 09/05/24 20:15 09/05/24 20:20 Temperature Pulse Rate Pulse Rate [Left P ulse Oximeter] 92 103 H 100 Respiratory Rate 16 16 16 Blood Pressure Blood Pressure [Ri ght Arm] 131/82 149/74 H 150/75 H Pulse Oximetry 97 97 97 Oxygen Delivery Me thod Room Air Room Air Room Air 09/05/24 20:22 09/05/24 20:25 09/05/24 20:30 Temperature Pulse Rate 91 Pulse Rate [Left P ulse Oximeter] 94 99 Respiratory Rate 16 16 Blood Pressure Blood Pressure [Ri ght Arm] 139/80 148/64 H Pulse Oximetry 97 97 Oxygen Delivery Me thod Room Air Room Air 09/05/24 20:40 09/05/24 22:07 09/05/24 22:15 Temperature 97.5 F L Pulse Rate 96 98 Pulse Rate [Left P ulse Oximeter] 94 Respiratory Rate 16 16 14 Blood Pressure 102/75 108/74 Blood Pressure [Ri ght Arm] 142/74 H Pulse Oximetry 95 96 95 Oxygen Delivery Me thod Room Air Room Air Room Air 09/05/24 22:20 09/05/24 22:25 09/05/24 22:30 Temperature 97.6 F Pulse Rate 99 91 88 Pulse Rate [Left P ulse Oximeter] Respiratory Rate 14 12 14 Blood Pressure 105/75 114/74 115/77 Blood Pressure [Ri ght Arm] Pulse Oximetry 95 94 94 Oxygen Delivery Me thod Room Air Room Air Room Air 09/05/24 22:35 09/05/24 22:40 09/05/24 22:48 Temperature 97.6 F 97.7 F Pulse Rate 87 87 Pulse Rate [Left P ulse Oximeter] 90 Respiratory Rate 14 16 14 Blood Pressure 117/77 119/77 Blood Pressure [Ri ght Arm] 127/77 Pulse Oximetry 96 95 94 Oxygen Delivery Me thod Room Air Room Air Room Air 09/05/24 23:00 09/05/24 23:15 09/05/24 23:30 Temperature 99.1 F 97.8 F Pulse Rate 81 Pulse Rate [Left P ulse Oximeter] 96 89 Respiratory Rate 14 16 Blood Pressure Blood Pressure [Ri ght Arm] 130/80 118/76 Pulse Oximetry 96 97 Oxygen Delivery Me thod Room Air Room Air 09/05/24 23:30 09/05/24 23:45 09/06/24 00:00 Temperature 97.7 F 97.6 F Pulse Rate Pulse Rate [Left P ulse Oximeter] 83 89 Respiratory Rate 16 16 16 Blood Pressure Blood Pressure [Ri ght Arm] 126/75 122/71 Pulse Oximetry 97 95 95 Oxygen Delivery Me thod Room Air Room Air Room Air 09/06/24 00:30 09/06/24 01:00 09/06/24 02:00 Temperature 97.9 F 98.1 F 98.1 F Pulse Rate Pulse Rate [Left P ulse Oximeter] 96 99 86 Respiratory Rate 16 16 16 Blood Pressure Blood Pressure [Ri ght Arm] 121/71 125/75 130/78 Pulse Oximetry 97 96 96 Oxygen Delivery Me thod Room Air Room Air 09/06/24 03:00 09/06/24 04:00 09/06/24 05:00 Temperature 98.4 F 98.3 F 98.1 F Pulse Rate Pulse Rate [Left P ulse Oximeter] 88 93 97 Respiratory Rate 16 16 16 Blood Pressure Blood Pressure [Ri ght Arm] 104/64 112/64 111/59 L Pulse Oximetry 96 95 98 Oxygen Delivery Me thod Room Air Room Air Room Air 09/06/24 07:00 09/06/24 07:00 09/06/24 07:00 Temperature 98.7 F Pulse Rate 85 Pulse Rate [Left P ulse Oximeter] 92 Respiratory Rate 16 16 Blood Pressure Blood Pressure [Ri ght Arm] 109/69 Pulse Oximetry 97 97 Oxygen Delivery Me thod Room Air Room Air DS: Data Data Completed and Pending Labs on day of discharge: Labs from last 24 hours 09/06/24 09/05/24 09/05/24 06:55 20:25 19:55 WBC 15.05 H RBC 3.21 L Hgb 10.2 L 10.5 L 10.7 L Hct 30.4 L MCV 95 MCH 32 MCHC 34 RDW Coeff of Pravin 13.5 Plt Count 213 Neut % (Auto) 77.7 H Lymph % (Auto) 11.8 L [place] % (Auto) 10.3 Eos % (Auto) 0.0 Baso % (Auto) 0.1 Neut # (Auto) 11.70 H Lymph # (Auto) 1.80 [place] # (Auto) 1.60 H Eos # (Auto) 0.00 Baso # (Auto) 0.00 Abs Immat Gran (auto) 0.00 Imm/Tot Granulo (auto) 0.1 Blood Type Antibody Screen Crossmatch (AHG) 09/05/24 18:00 WBC RBC Hgb Hct MCV MCH MCHC RDW Coeff of Pravin Plt Count Neut % (Auto) Lymph % (Auto) [place] % (Auto) Eos % (Auto) Baso % (Auto) Neut # (Auto) Lymph # (Auto) [place] # (Auto) Eos # (Auto) Baso # (Auto) Abs Immat Gran (auto) Imm/Tot Granulo (auto) Blood Type O Positive Antibody Screen NEGATIVE Crossmatch (AHG) See Detail Discharge Plan Discharge Disposition: Home w/ Parent or Adult Discharging Surgeon: Kasandra Tesfaye Follow-Up Appointment: 2 weeks, [facility] Prescriptions: New hydrocodone-acetaminophen 5-325 mg Tablet 1 - 2 tab PO Q6H PRN (Reason: Pain) Qty: 25 0RF Continued cholecalciferol (vitamin D3) 25 mcg (1,000 unit) capsule 25 mcg PO QDAY ibuprofen 200 mg tablet 400 mg PO Q8H PRN acetaminophen 325 mg tablet 650 mg PO Q6H PRN lidocaine-prilocaine 2.5-2.5 % cream 1 applic topical ONCE Qty: 30 1RF Rx Instructions: administer 5-10 minutes prior to the procedure ondansetron HCl 4 mg tablet 4 mg PO Q8H PRN prochlorperazine maleate [Compazine] 5 mg tablet 5 mg PO Q6-8H PRN Magic Mouthwash (Lidocaine/Benadryl/Maalox) 120 mL suspension 5 ml PO TID-QID Qty: 120 0RF Rx Instructions: Lidocaine Viscous 2 % mucosal solution 40 mL; Maalox 200 mg-200 mg-20 mg/5 mL oral suspension 40 mL; Benadryl 12.5 mg/5 mL oral elixir 40 mL; Per 120 mLSWISH AND SPIT. MAY COMPOUND IF FIRST PRODUCT IS NOT AVAILABLE. nitrofurantoin monohyd/m-cryst 100 mg capsule 1 cap PO Q12H PRN lidocaine HCl [Lidocaine Viscous] 2 % solution 5 ml mucous membrane QID PRN (Reason: mouth sore pain) Qty: 100 1RF Rx Instructions: 5 ml swish, hold for 1 minute and then spit, or use with a cotton applicator to painful areas. 15 minutes before eating, up to 4 times per day. Activity Level: Activity as Tolerated and No strenuous activity Activity Detail: No lifting more than 20 lb for 4 weeks Discharge Diet: Regular Patient Instructions: Hydrocodone/Acetaminophen (By mouth), Deep Sedation (DC), Post-Operative Instructions: Breast Surgery Additional Instructions: Wound care: Your sutures are under the skin and will dissolve over time. Leave steri strips (white bandages) over incisions until they fall off (or remove after 7 days). OK to shower tomorrow but avoid bathing, soaking or swimming for 2 weeks. Pat the incisions dry. No need to wash or scrub the area. OK to get breast incisions wet in the shower, but cover drain sites with Tegaderm, Saran wrap and tape or [id number] when showering. Apply ice to the area as needed for swelling. It is also OK to use a heating pad if this provides more comfort to you. Wear a snug bra or Geovanny wrap until drains removed to help prevent fluid accumulation. Place dry gauze in the broader or under the wrap to collect any drainage from the drain sites or incisions. Empty and record drain output every 8 hours. Bring this record with you to your follow-up appointment. Once once your drain output is less than 30cc per day for 2 consecutive days, please call the [facility] - you may be able to come in to have your drains pulled before your follow-up appointment (drains are never removed prior to 7 days, however). Pain control: You were prescribed a pain medication. This medication contains acetaminophen (Tylenol). If you are taking your prescribed pain pills 4 times daily, do not take additional acetaminophen. As your pain improves, you can try taking acetaminophen instead of the prescribed pain pill. Take an [id number] stool softener while you are taking prescribed pain medications to help alleviate constipation. I recommend Senna and/or Colace. Take as directed on package. If you have not had a bowel movement in 3 days, try taking Miralax as directed on the package. All of these are available over the counter. Follow-up Follow up with Dr. Tesfaye in 2 weeks Please call if you are experiencing severe pain, nausea, vomiting, difficulty urinating, fever or have not had bowel movement in 4 days after surgery. Follow-up: Yesenia Degroot MD [Primary Care Provider, REHEATER HELPER] Kasandra Tesfaye MD [Staff Physician, General Surgery] - 09/19/24 3:15 pm Referral Note: [facility] for hospital follow-up. Discharge Orders: Discharge Order (Routine); Ordered 09/06/24 Ordered By: Kasandra Tesfaye
[2024-09-06 12:44] LABS: Hemoglobin* 10.0 gm/dL (12.0-16.0)
--- NOTE | 2024-09-06 14:43 | PC.NURSE ---
Pt discharged @ 1430 via wheelchair, accompanied by . Back to home. IVs (2) removed. STEVE drains of the L and R breasts drained. Pt requested pain medication prior to leaving. Pain controlled, AxOx4. Discharge forms signed. Understanding met regarding discharge instructions given by freelance copywriter. Final room check complete.
== END 2024-09-06 14:30 | disposition home or self-care (01) ==
LOC: SS 14:11 → MEDSURG 14:12
PROVIDERS: Anesthesiology; Family Medicine; PCP Obstetrics & Gynecology; Visit Provider Surgery
PROC: (CPT 19303; principal; 2024-09-05 08:30)
PROC: (CPT 19303; 2024-09-05 08:30)
DX: C50.912 Malignant neoplasm of unspecified site of left female breast (principal); Z17.1 Estrogen receptor negative status [ER-]; Z17.32 Human epidermal growth factor receptor 2 negative status; Z17.22 Progesterone receptor negative status; G89.18 Other acute postprocedural pain; T81.19XA Other postprocedural shock, initial encounter; I95.1 Orthostatic hypotension; L76.32 Postprocedural hematoma of skin and subcutaneous tissue following other procedure
CPT/HCPCS: 19303; 38525; 21501; 01610; 36415; 36430; 38792; 64420; 64421; 76942; 84703; 85018; 85025; 86850; 86900; 86901; 86922; 88307; 88333; 88334; 99140; A9270; A9541; J0330; J0665; J0666; J0690; J1100; J1171; J1885; J2405; J2704; J3010; J3475; J3490; J7120; P9016

== ENCOUNTER 2024-09-08 15:52 | Inpatient (IN) | payer OTHER, SELFPAY ==
--- OUTSIDE RECORDS SUMMARY | 2019-10-20 09:31 | XMS_ITS | Continuity of Care Document ---
Author Organization [facility] Address [address] [address] [place] [address] Phone Care Team Providers Care Industrial Maintenance Tech Name Role Phone Unavailable Unavailable Unavailable Allergies, Adverse Reactions, Alerts Substance Reaction Status Criticality No Known Allergies Active No Inform ation Medications Medication Instructions Dosage Effective Dates (start - stop) Status Comments VITAMIN D3 (unknown strength) take 1 gummy by Oral route every day Not Available - Active Procedures Procedure Date Colonoscopy Flex; W/bx 1/mx Level Iv-surg Path Gross/micro 20 Advance Directives Directive Yes / No Effective Date File Name No Information Encounters Encounter Description Practice Location Reason(s) For Visit Diagnoses Date Provider Providers Copied on Encounter [facility], [address] [address], [place], [id number], tel:[phone] [facility] No Information 0 No Information Referring Provider: Charan Clarke MD, [address] [facility] [address], [place], [address] . tel:[phone] [facility], [address] [address], [place], [id number], tel:[phone] [facility] Screening ColonoscopyColor ectal polyp detected on colonoscopyFamil y history of colonic polypsBenign neoplasm of ascending colonEncounter for screening for malignant neoplasm of colonBenign neoplasm of ascending colon 0 Vince Farrar. [address] [facility], [place], [place], [id number], [place]. tel:[phone] Referring Provider: Aydee Pacheco MD E, [id number] [facility] [address], [place], [address]. tel:[phone] [facility], [address] [address], [place], [place], [id number], [place] tel:[phone] [place] [facility] No Information 0 Vince Farrar. [address] [facility], [facility] [address], [place], [place], [id number], [place]. tel:[phone] Family History Family Member Type Diagnosis Age At Onset Father Problem (finding) Reflux disease Father Problem (finding) Colon polyps Mother Problem (finding) malignant neoplasm of s kin Immunizations Vaccine Date Status Comments tetanus toxoid, reduced diphtheria toxoid, and acellular pertussis vaccine, adsorbed administered Note: [facility] bi-direct ional interface ; Source: Other Registry Fluzone Quad 6mo or older administered Note: [facility] bi-direct ional interface ; Source: Other Registry Fluzone Quad 6mo or older administered Note: [facility] bi-direct ional interface ; Source: Other Registry tetanus toxoid, reduced diphtheria toxoid, and acellular pertussis vaccine, adsorbed administered Note: [facility] bi-direct ional interface ; Source: Other Registry Influenza, seasonal, injectable administe red Note: [facility] bi- directional interface ; Source: Other Registry Payers Payer name Insurance type Covered democrat ID Authoriza tion(s) No Information Social History Type Description Quantity Date Captured Comments Sex Female Smoking Status No Information Chief Complaint And Reason For Visit No Information Reason For Referral Reason For Referral No Information History Of Present Illness Encounter Date Complaint History Of Prese nt Illness No Information Functional Status Date Functional Assessmen t No Information Instructions Date Instruction Additional Infor mation Colon Cancer Prevention Related to Screening Colonoscopy Colon Polyps Related to Scree deirdre Colonoscopy Assessments Type Assessment Date No Information Patient Care Teams Name Effective Dates (start - stop) Status Members No Information
--- OUTSIDE RECORDS SUMMARY | 2019-10-20 09:31 | XMS_ITS | Continuity of Care Document ---
Author Organization [facility] Address [address] [address] [place] [address] Phone Care Team Providers Care Technical Education Teacher Name Role Phone Unavailable Unavailable Unavailable Allergies, [...] Diagnoses Date Provider Providers Copied on Encounter [facility], [address] [address], [place], [id number], tel:[phone] [facility] No Information 0 No Information Referring Provider: Charan Clarke MD, [address] [facility] [address], [place], [address] . tel:[phone] [facility], [address] [address], [place], [id number], tel:[phone] [facility] Screening ColonoscopyColor ectal polyp detected on colonoscopyFamil y history of colonic polypsBenign neoplasm of ascending colonEncounter for screening for malignant neoplasm of colonBenign neoplasm of ascending colon 0 Vince Farrar. [address] [facility], [place], [place], [id number], [place]. tel:[phone] Referring Provider: Aydee Pacheco MD E, [address] [facility] [address], [place], [address]. tel:[phone] [facility], [address] [address], [place], [place], [id number], [place] tel:[phone] [place] [facility] No Information 0 Vince Farrar. [address] [facility], [facility] [address], [place], [place], [id number], [place]. tel:[phone] Family History Family Member Type Diagnosis Age [...] Registry Payers Payer name Insurance type Covered republican ID Authoriza tion(s) No Information Social History [...]
--- OUTSIDE RECORDS SUMMARY | 2024-09-08 15:53 | XMS_ITS | Clinical Summary ---
Author Organization [facility] Address [address] [place] [id number] Care Team Providers Care Director [place] Name Role Phone [facility] Primary Ca re Provider Social History Tobacco Use Types Packs/Day Years Used Date Smoking Tobacco: Never Assessed Adolescent Education Answer Date Record ed Getting School Help Needed Not on file 01/08 Comments Unknown Sex and Gender Information Value Date Recorded Sex Assigned at Not on file Legal Sex Female 12:49 PM CDT Gender Identity Not on file Sexual Orientation Not on file Plan of Treatment Not on file Procedures Procedure Name Priority Date/Time Associated Diagnosis Comments CBC WITH PLATELETS & DIFFERENTIAL Routine 08/22/2024 11:15 AM CDT Encounter for other preprocedural examination CBC WITH PLATELETS AND DIFFERENTIAL Routine 08/22/2024 11:15 AM CDT Encounter for other preprocedural examination COMPREHENSIVE METABOLIC PANEL Routine 08/22/2024 11:15 AM CDT Encounter for other preprocedural examination from Last 3 Months Results * CBC with platelets and differential (08/22/2024 11:15 AM CDT) WBC Count 7.3 4.0 - 11.0 10e3/uL 08/22/2024 9:40 PM CDT [facility] RBC Count 4.04 3.80 - 5.20 10e6/uL 08/22/2024 9:40 PM CDT [facility] Hemoglobin 12.7 11.7 - 15.7 g/dL 08/22/2024 9:40 PM CDT [facility] Hematocrit 38.5 35.0 - 47.0 % 08/22/2024 9:40 PM CDT [facility] MCV 95 78 - 100 fL 08/22/2024 9:40 PM CDT [facility] MCH 31.4 26.5 - 33.0 pg 08/22/2024 9:40 PM CDT [facility] MCHC 33.0 31.5 - 36.5 g/dL 08/22/2024 9:40 PM CDT [facility] RDW 12.5 10.0 - 15.0 % 08/22/2024 9:40 PM CDT [facility] Platelet Count 286 150 - 450 10e3/uL 08/22/2024 9:40 PM CDT [facility] % Neutrophils 62 % 08/22/2024 9:40 PM CDT [facility] % Lymphocytes 26 % 08/22/2024 9:40 PM CDT [facility] % Monocytes 10 % 08/22/2024 9:40 PM CDT [facility] % Eosinophils 2 % 08/22/2024 9:40 PM CDT [facility] % Basophils 1 % 08/22/2024 9:40 PM CDT [facility] % Immature Granulocytes 0 % 08/22/2024 9:40 PM CDT [facility] NRBCs per 100 WBC 0 <1 /100 025 9:40 PM CDT [facility] Absolute Neutrophils 4.5 1.6 - 8.3 10e3/uL 08/22/2024 9:40 PM CDT [facility] Absolute Lymphocytes 1.9 0.8 - 5.3 10e3/uL 08/22/2024 9:40 PM CDT [facility] Absolute Monocytes 0.7 0.0 - 1.3 10e3/uL 08/22/2024 9:40 PM CDT [facility] Absolute Eosinophils 0.1 0.0 - 0.7 10e3/uL 08/22/2024 9:40 PM CDT [facility] Absolute Basophils 0.1 0.0 - 0.2 10e3/uL 08/22/2024 9:40 PM CDT [facility] Absolute Immature Granulocytes 0.0 <=0.4 10e3/uL 08/22/2024 9:40 PM CDT [facility] Absolute NRBCs 0.0 10e3/uL 08/22/2024 9:40 PM CDT [facility] Blood STRUCTURE OF RIGHT UPPER LIMB / Unknown Client Draw / Unknown 08/22/2024 11:15 AM CDT 08/22/2024 9:23 PM CDT us Yesenia Degroot MD LAB - BLOOD ORDERABLES Final Result [facility] [address] [facility], [address] [place] [address] * Comprehensive metabolic panel (08/22/2024 11:15 AM CDT) Sodium 140 135 - 145 mmol/L 08/23/2024 5:23 AM CDT [facility] Potassium 4.2 3.4 - 5.3 mmol/L 08/23/2024 5:23 AM CDT [facility] Carbon Dioxide (CO2) 25 22 - 29 mmol/L 08/23/2024 5:23 AM CDT [facility] Anion Gap 12 7 - 15 mmol/L 08/23/2024 5:23 AM CDT [facility] Urea Nitrogen 11.6 6.0 - 20.0 mg/dL 08/23/2024 5:23 AM CDT [facility] Creatinine 0.66 0.51 - 0.95 mg/dL 08/23/2024 5:23 AM CDT [facility] GFR Estimate >90 >60 mL/min/1.7 3m2 08/23/2024 5:23 AM CDT [facility] Comment:eGFR calculated us2020 CKD-EPI equation. Calcium 10.1 8.8 - 10.4 mg/dL 08/23/2024 5:23 AM CDT [facility] Chloride 103 98 - 107 mmol/L 08/23/2024 5:23 AM CDT [facility] Glucose 98 70 - 99 mg/dL 08/23/2024 5:23 AM CDT [facility] Alkaline Phosphatase 63 40 - 150 U/L 08/23/2024 5:23 AM CDT [facility] AST 20 0 - 45 U/L 08/23/2024 5:23 AM CDT [facility] ALT 24 0 - 50 U/L 08/23/2024 5:23 AM CDT [facility] Protein Total 7.0 6.4 - 8.3 g/dL 08/23/2024 5:23 AM CDT [facility] Albumin 4.6 3.5 - 5.2 g/dL 08/23/2024 5:23 AM CDT [facility] Bilirubin Total 0.4 <=1.2 mg/dL 08/23/2024 5:23 AM CDT [facility] Blood STRUCTURE OF RIGHT UPPER LIMB / Unknown Client Draw / Unknown 08/22/2024 11:15 AM CDT 08/22/2024 9:24 PM CDT us Yesenia Degroot MD LAB - BLOOD ORDERABLES Final Result [facility] [address] [facility], [address] [place] [id number], [facility] from Last 3 Months Care Teams Director [place] Relationship Specialty Start Date End Date Clinic - [facility] [address] [address] [id number] PCP - General 07/21/19
--- OUTSIDE RECORDS SUMMARY | 2024-09-08 15:53 | XMS_ITS | Continuity of Care Document ---
Author Organization BRYAN Marin BALE BREAKER OPERATOR, [id number] Address [address] [place] [address] Assessment No assessment recorded. Plan of Treatment Reminders Order Date Submit Date Provider Last Modified By Organization Details Last Modified Time Details Appointments G_OFFICE VISIT 2024 10:00A Ander KING MD Not available Not available Not available Lab CBC w/ diff 2024 025 [facility], [address] [place] [address], [id number], [place], [address], 08/23/2024 06:26:14 CMP, serum or plasma 2024 025 [facility], [address] [place] [address], [id number], [place], [address], 08/23/2024 06:26:17 Referral None recorded . Procedures None recorded . Surgeries None recorded . Imaging None recorded . Medication Orders None recorded . Patient TargetsNo targets recorded. Patient InstructionsNo instructions recorded. Reason for Referral None Reported. Problems Name Problem SNOMED Code Status Onset Date Resolution Date Notes Provider Name and Address Organization Details Recorded Time Urinary tract infectious disease 76222705 Active BRYAN Strong BALE BREAKER OPERATOR 09:16:54 Problem Notes None recorded. Procedures Surgical History Date Name Laterality Status Provider Name and Address Organization Details Recorded Time 01/24/20 [facility] Annual Well-Woman Visit age 40-64 [place] [address] [place] [address] completed Tesha Marin BALE BREAKER OPERATOR 12/29/2023 17:21:57 11/08/20 24 Date of Last Mammogram completed Tesha BolivarBrianLestertho kwon [place] [facility] [employer]PER[employer] 01/24/2024 14:10:31 01/09/20 23 [facility] Annual Well-Woman Visit age 40-64 [place] [address] [place] [address] completed Crystal Beebe [place] [facility] [employer] BREAKER OPERATOR 12/24/2022 09:44:24 12/14/19 21 Date of Last Pap Smear completed Tesha BolivarBrianLestertho kwon [place] [facility] [employer]AKER OPER[employer] 08/22/2024 11:30:53 09/30/19 20 Date of Last Colonoscopy completed Maria Luisa Travis [place] [facility] [employer]ER OPER[employer] 01/08/2023 09:21:08 03/01/19 20 Colonoscopy completed Tesha Rafitatho doyle [place] [facility] [employer]AKER OPERATOR 08/22/2024 11:31:10 05/14/19 10 abdominoplasty completed Maria Luisa Travis [place] [facility] [employer]AKER OPER[employer] 01/08/2023 09:21:00 03/01/19 09 Abdominoplasty completed Tesha BolivarBrianLestertho kwon [place] [facility] [employer] OPER[employer] 08/22/2024 11:31:10 09/29/19 07 section completed Maria Luisa [place] [facility] [employer] 01/08/2023 09:20:10 03/01/19 07 Caesarean Section completed Tesha Ellertho doyle [place] [facility] [employer]ER OPER[employer] 08/22/2024 11:31:10 08/03/19 06 section completed Maria Luisa [place] [facility] [employer] 01/08/2023 09:20:06 03/01/19 06 Caesarean Section completed Tesha Ellertho doyle [place] [facility] [employer]AKER OPER[employer] 08/22/2024 11:31:10 03/01/19 04 extraction of wisdom tooth completed Maria Luisa [place] [facility] [employer] BREAKER OPERATOR 01/08/2023 09:21:45 Imaging Results None recorded. Procedure Notes None recorded. Medical Equipment None Reported. Allergies No known drug allergies Medications Name Sig Start Date Stop Date Status Note LastModified by Organization Details LastModified Time prochlorper azine maleate 5 mg tablet TAKE ONE TABLET BY MOUTH EVERY 6 TO 8 HOURS 08/19 completed Not Available Not Available Not Available ondansetron HCl 4 mg tablet TAKE ONE TABLET BY MOUTH EVERY 8 HOURS 08/19 completed Not Available Not Available Not Available lidocaine-p rilocaine 2.5 %-2.5 % topical cream APPLY TOPICALLY ONCE DAILY, ADMINISTE R 5 TO 10 MINUTES PRIOR TO THE PROCEDURE active Not Available Not Available No t Available nitrofurant oin macrocrysta l 100 mg capsule TAKE 1 CAPSULE BY MOUTH EVERY 12 HOURS FOR 5 DAYS active Not Available Not Available No t Available lidocaine HCl 2 % mucosal solution SWISH AND SPIT 5 ML BY MOUTH TO AFFECTED MUSCOSAL AREA 4 TIMES A DAY FOR 1 MINUTE NEEDED FOR MOUTH SORE PAIN. OR USE WITH A COTTON APPLIC 08/19 completed Not Available Not Available Not Available nitrofurant oin monohydrate /macrocryst als 100 mg capsule TAKE ONE CAPSULE BY MOUTH EVERY 12 HOURS FOR 5 DAYS NEEDED FOR RECURRENT URINARY TRACT INFECTION S 01/23 completed Not Available Not Available Not Available Vitamin D3 active Not Available Not Av ailable Not Available Vitals Date Recorded Body height Body mass index (BMI) Body weight Heart rate Systolic And Diastolic Provider Name and Address Organization Details Last Updated DateTime 08/22/2024 154.94 cm 26.4 kg/m2 18519.49 g 71 /min 118/80 mm[Hg[facility] 08/22/2024 11:40:00 Social History Question Answer Notes LastModified by Organizat ion Details LastModified Time Tobacco Smoking Status Never Smoker BRYAN Strong BALE BREAKER OPERATOR 01/08/2023 09:17:58 Do You Have An Advance Directive? No Information not available 01/08/2023 What Is Your Level Of Caffeine Consumption? Occasional Information not available 08/22/2024 History Of Domestic Violence No Information no t available 01/08/2023 What Was The Date Of Your Most Recent Tobacco Screening? 08/22/2024 Information not available 08/22/2024 What Is Your Relationship Status? Information not available 01/08/2023 Are You Sexually Active? Yes Information not available 01/08/2023 Has Tobacco Cessation Counseling Been Provided? No Information not available 01/24/2024 Sex: Unknown Functional Status Question Answer Note LastModified by Organizat ion Details LastModified Time How many times per week do you consume alcohol? Less than 1 time per week Information not available 08/21/2024 Do you use any illicit or recreational drugs? No Information not available 01/08/2023 Do you or have you ever used any other forms of tobacco or nicotine? No Information not available 01/24/2024 What is your level of alcohol consumption? 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 Never used electronic cigarettes Information not available 08/22/2024 What is your exercise level? Moderate walking 1-3 miles per day Information not available 01/08/2023 Mental Status None recorded. Family History Relationship Description Onset Age of this Age Resolved Age Notes LastModified by Organization Details LastModified Time Mother Hyperlipidem ia [email or web address] Not available 2024 11:06:59 Mother Malignant neoplasm of skin Basal and [place] us Not available 01/08/2023 09:22:47 Mother Mitral valve prolapse [id number] Not available 2024 11:06:59 Mother Blood coagulation disorder pt. added direct ly (08/19) [email or web address] Not available 08/19/2024 16:05:06 Mother Hypercholest erolemia pt. added direct ly (08/19) [email or web address] Not available 08/19/2024 16:05:51 Mother Osteoporosis pt. added direct ly (08/19) [email or web address] Not available 08/19/2024 16:05:59 Father Malignant neoplasm of skin Basal and [place] us Not available 01/08/2023 09:22:48 Father Heart disease 64 s/p 3V CABG Not available 01/08/2023 09:23:12 Father Hyperlipidem ia [email or web address] Not available 2024 11:06:59 Father Diabetes mellitus pt. added direct ly (08/19) [email or web address] Not available 08/19/2024 16:05:22 Maternal Grandfather Amyotrophic lateral sclerosis [email or web address] Not available 2024 11:06:59 Paternal Grandmother Diabetes mellitus Not available 2022 09:23:43 Paternal Grandmother Hypertensive disorder Not available 2022 09:23:53 Paternal Grandfather Malignant neoplastic disease unknow n [email or web address] Not available 08/22/2024 11:06:59 Maternal Grandmother Hypercholest erolemia pt. added direct ly (08/19) [email or web address] Not available 08/19/2024 16:05:51 Maternal Uncle Malignant neoplasm of prostate pt. added direct ly (08/19) [email or web address] Not available 08/19/2024 16:06:16 Medical History Condition Response GI- Colon Polyps Y Cancer- Breast Y Urology- Recurrent Urinary Tract Infecti ons Y Gynecological History Statement/Question Response History of Abnormal PAP N Date of Last Mammogram 01/07/2024 Total lifetime partners Less than 5 Date of LMP 04/02/2024 Date of Last HPV Test 01/24/2024 Date of Last Diabetes Screening 01/09/20 23 12 Date of last bone density Post Menopausal Hormone Therapy User Nev er Sexually Active Y Age at Menarche: 11 Date of Last Colonoscopy 09/30/2019 Age at first intercourse 17 Y HPV Vaccine Not Completed Current Control Method Vasectomy History of Fibroids [...] Diagnosis/Indication Diagnosis SNOMED-CT Code Diagnosis ICD10 Code Diagnosis Note [id number] CHARISSE KING MD [id number] EDVIN EATON [address] [address] 08/22/2024 10:55:40 08/22/2024 12:41:20 Preprocedural examination done [id number] Z01.818 The patient is cleared for anesthesia with no signs of infection. Results will be faxed when we get them back Health Concerns Section Related Observation LastModified by Organization Detai ls LastModified Time None Recorded Concern Status LastModified by Organization Details LastModified Time None Recorded Payers Encounter Date Sequence Insurance Name Policy Number Policy Paiz Covered Member ID Paiz Member ID Guarantor Name 08/22/2024 1 [facility] [id number] Chelsie Calero [id number] Chelsie Calero Notes Date Note Type Note Provider Name and Address Organization Details Recorded Time 08/22/2024 text/html Pre-Op ([facility])Reported bypatient.Procedure: bilateral mastectomy Procedure Date:09/05/2024 Procedure Location:[facility] Reason for Procedure:cancer Past Medical History significant for:asthma: no; CAD: no; renal insufficiency: no; diabetes: no; congestive heart failure: no; recent [place]: no; valvular heart disease: no; sleep apnea: no Bleeding Risk: History of:bleeding or easy bruising: no; bleeding into joints or muscles: no; frequent nosebleeds: yes; heavy menstrual bleeding: no History of bleeding after:loss of teeth or dental extractions: no; previous surgery: no; previous injury: noNotes:[place] [id number] [facility],[address], [place], [address], [place] [facility] [employer] BREAKER OPERATOR 08/22/2024 12:03:07 OBGyn Episode No OBEpisode recorded.
--- OUTSIDE RECORDS SUMMARY | 2024-09-08 15:53 | XMS_ITS | Clinical Summary ---
Author Organization [facility] Address [address] [place] [id number] Care Team Providers Care Teletypesetter Monitor Name Role Phone Yesenia Degroot MD Primary Care Provider + Allergies No known active allergies Medications nitrofurantoin macrocrystaL (MACRODANTIN) 100 mg capsuleIndications :Routine gynecological examination Take one tablet every 12 hours for 5 days. 10 Capsule 1 3 Active Active Problems Problem Noted Date Diagnosed Date Headache(784.0) 02/03/2012 Hand dermatitis 05/14/2010 Other acne 03/05/2010 Localized adiposity 05/13/2009 Previous delivery, unspecified as to episode of care or not applicable(634.20) 09/28/2006 Resolved Problems Problem Noted Date Diagnosed Date Resolved Date Supervision of other normal 09/28/2006 01/28/2011 Encounters Date Type Department Care Team Description 09/05/2024 Lab Requisition [facility] [phone] Kasandra Tesfaye MD 09/05/2024 Lab Requisition [facility] [phone] Kasandra Tesfaye MD 09/05/2024 Lab Requisition [facility] [phone] Kasandra Tesfaye MD from Last 3 Months Immunizations Immunization Administration Dates Next Due Influenza Virus, Unspecified 11/29/2009 Influenza, IIV3 (Age >=3 years) 11/30/19 14,11/29/2012,11/30/2011, 8 01/12/2009 Influenza, IIV4 12/21/2015,11/29/2014 Td (Age >=7 Years) 1996 Tdap 10/11/2019,01/13/2008 01/12/2018 Family History Medical History Relation Name Comments No Known Problems Brother No Known Problems Daughter 1 No Known Problems Daughter 2 Colon polyps Father Coronary artery disease Father S/P 3V CABG Hyperlipidemia Father Obesity Father Skin cancer Father Basal, squamous Other Maternal Grandfather ALS Cancer Mother Basal, squamous Hyperlipidemia Mother Mitral valve prolapse Mother Other Mother GI bleed -Mallo ry Cristobal tear, secondary to flu, requiring hospitalization Cancer Paternal Grandfather unknown Diabetes Paternal Grandmother Hypertension Paternal Grandmother Psychiatric illness Paternal Grandmother depression No Known Problems Sister Cancer-breast No Family History Cancer-ovarian No Family History Relation Name Status Comments Brother Alive Daughter 1 Alive Daughter 2 Alive Father Alive Maternal Grandfather Maternal Grandmother Mother Alive Paternal Grandfather Paternal Grandmother Sister Alive Social History Tobacco Use Types Packs/Day Years Used Date Smoking Tobacco: Never Smokeless Tobacco: Never Alcohol Use Standard Drinks/Week Comments Yes 0 (1 standard drink = 0.6 oz pur e alcohol) Humiliation, Afraid, Rape, and Kick questionnair e Answer Date Recorded Within the last year, have y ou been afraid of your partner or ex-partner? No 12/13/2020 Within the last year, have y ou been humiliated or emotionally abused in other ways by your partner or ex-partner? No Within the last year, have y ou been kicked, hit, slapped, or otherwise physically hurt by your partner or ex-partner? No 12/13/2020 Within the last year, have y ou been raped or forced to have any kind of sexual activity by your partner or ex-partner? No 12/13/2020 PHQ-2 Answer Date Recorded PHQ-2 TOTAL SCORE 0 12/29/2021 Social Connections Answer Date Recorded Frequency of Communication with Friends and Fami ly Not on file 2021 Financial Resource Strain Answer Date R ecorded Difficulty of Paying Living Expenses Not on file 2021 Difficulty of Paying Living Expenses Not on file 2021 Comments No Sex and Gender Information Value Date Recorded Sex Assigned at Not on file Legal Sex Female 5:48 AM [employer] Gender Identity Not on file Sexual Orientation Not on file Obstetrics History Para Term AB IAB SAB Ectopic Multiple Livin g Live Births 2 2 2 0 0 0 0 0 2 2 Date Outcome GA Total Labor Labor/2nd/3rd Weight Sex Type Anes PTL Farida A1 A5 Name Clin 2005 Term 40w 0d 3.26 kg (7 lb 3 oz) F C-Sec tion Epidur al Livin g 9 9 Selam miller Delivery Location:[place] 2006 Term 3.5 kg (7 lb 11.5 oz) F C-Sec tion Livin g 9 9 Marijajulius Degroot Delivery Location:[place] Last Filed Vital Signs Vital Sign Reading Time Taken Comments Blood Pressure 126/85 07/04/2022 6:01 PM CDT Pulse 82 07/04/2022 6:01 PM CDT Temperature 36.8 C (98.2 F) 07/04/2022 6:01 PM CDT Respiratory Rate 16 07/04/2022 6:01 PM CDT Oxygen Saturation 97% 07/04/2022 6:01 PM CDT Inhaled Oxygen Concentration - - Weight 65.8 kg (145 lb) 07/04/2022 6:01 PM CDT Height 154.9 cm (5' 1) 07/04/2022 6:01 PM CDT Body Mass Index 27.4 07/04/2022 6:01 PM CDT Plan of Treatment Upcoming Encounters Date Type Department Care Team (Late st Contact Info) Description 09/19/2024 3:15 PM CDT Office Visit [facility] [address] [place] [address] Kasandra Tesfaye MD [address] [place] [address] Health Maintenance Due Date Last Done Comments HIV for age 15-65 1994 Hepatitis C screening for age 18-79 1997 Hepatitis B series for 19+ (1 of 3 - 19+ 3-dose series) 1998 BMI (ht and wt on same day) for age 18+ 12/29/2022 12/29/2021, 12/13/2020, 09/11/2019, Additional history exists Depression screening for age 12+ 01/05/2023 01/05/2022, 12/29/2021, 12/16/2020, Additional history exists COVID-19 vaccine series (2023- season) 2023 Pap test for age 21-65 12/14/2023 , 06/15/2017, 03/26/2014, Additional history exists Colonoscopy through age 75 2024 Influenza Vaccine (#1) 2024 6, 11/29/2014, 11/29/2013, Additional history exists Mammogram for age 45-75 01/24/2025 01/25/20 24, 01/10/2024, 01/06/2023, Additional history exists Lipids for age 45-75 12/29/2026 12/29/2021, 10/11/2019, 02/09/2013, Additional history exists Tetanus booster 10/10/2029 10/11/2019, 12/30, 1996 Pneumococcal series for age 6-49 Aged Out No longer eligible based on patient's age to complete this topic Procedures Procedure Name Priority Date/Time Associated Diagnosis Comments PATH TISSUE EXAM Routine 09/05/2024 10:2 6 AM CDT XR MAMMO VICKY UNI ADDL VIEWS LEFT SOO 01/25/2024 2:09 PM [employer] Abnormal mammogram LIPID PANEL Routine 12/29/2021 11:56 AM CDT Screening for lipoid disorders DATA MIGRATION LEAD THIN PREP PAP SCREEN IMAGED Routine 12/13/2020 8:25 AM CDT Screening for malignant neoplasm of cervix from Last 3 Months or Most Recently Relevant to Health Maintenance Results * PATH TISSUE EXAM (09/05/2024 10:26 AM CDT) Case Report Pathology Report Case: [id number] Authorizing Provider: Kasandra Tesfaye MD Collected: 09/05/2024 1026 Ordering Location: [facility] Received: 09/05/20242033 Pathologist: Mariana Davila MD Specimens: A) - Left Breast Mastectomy B) - Left Breast [employer] Node C) - Right Breast Mastectomy D) - Left Breast 09/08/2024 11:24 AM CDT [facility] Final Diagnosis A) LEFT BREAST, MASTECTOMY: 1. NO RESIDUAL CARCINOMA b. Core biopsy site is associated with treatment effect 2. Ductal carcinoma in situ (DCIS): Absent 3. Breast Ancillary Testing: Performed on prior case with carcinoma ([id number]) a. Hormone Receptors: Estrogen receptor: Negative Progesterone receptor: Negative b. HER2 by IHC: Negative (0-null by manual morphometry) c. Ki-67: 15% 4. Additional biopsy site present with surrounding pseudo-angiomato us stromal hyperplasia (PASH) 5. Benign nipple B) LEFT AXILLARY SENTINEL LYMPH NODE, BIOPSY: 1. Negative for malignancy in 3 lymph nodes (0/3) 2. No definite changes of prior biopsy site C) RIGHT BREAST, MASTECTOMY: 1. Benign breast tissue 2. No atypia, in-situ, or invasive carcinoma identified 3. Benign nipple D) LEFT BREAST, LATERAL MARGIN, RE-EXCISION WITH EVALUATION OF SURGICAL MARGINS: 1. Benign breast tissue and adipose tissue 2. No atypia, in-situ, or invasive carcinoma identified 09/08/2024 11:24 AM CDT [facility] at 1124 CDT Comment The resection specimen shows no residual tumor as compared to the original tumor (core biopsy case [id number]). Histologic stromal changes consistent with treatment effect are present, measuring approximately 10 x 8 mm. Examination of the lymph nodes reveals no metastatic tumor and no lymph nodes with chemotherapy effect. RCB: 0 (RCB Class: pCR) 09/08/2024 11:24 AM CDT [facility] Clinical Information IDC, s/p neoadjuvant therapy 09/08/2024 11:24 AM CDT Active [facility] Gross Description A) Received fresh, labeled with the patient's name and left breast stitch superior, is a 558 gram, 15 (M-L) x 20 (S-I) x 3 (A-P) cm oriented simple breast mastectomy specimen without attached axillary contents. There is an attached 7 x 3.5 cm portion of skin with a 1.5 cm everted nipple and 3 cm surrounding areola. No skin scars or lesions are identified. The specimen is inked: Anterior-superio r: Blue Anterior-inferio r: Red Posterior: Black On cut surface there are 2 biopsy sites with clips and a single mass. The mass is 1 (S-I) x 1 (A-P) x 0.7 (M-L) cm at 2:00, 5 cm from the nipple. The lateral edge of the mass is located in the most lateral slice of the mastectomy. The mass is 0.3 cm from the closest anterior-superio r margin, 1 cm from the anterior-inferio r and posterior margins. The tissue surrounding the metallic clip is retracted consistent with biopsy site change. The second biopsy site is a 0.8 cm long, 0.2 cm diameter cylindrical core with a coil-shaped metallic marking clip located at 3:00, 7 cm from the nipple. The biopsy site is within an area of grossly unremarkable fibrous tissue measuring 2 (S-I) x 1.5 (M-L) x 1.5 (A-P) cm. No suspicious lesion is seen. The biopsy site is 2 cm from the anterior-superio r and posterior margins, 4 cm from the anterior-inferio r margin. The biopsy site with a coil clip is located 3.5 cm superior and medial to the mass. If they form a contiguous process, then the maximum dimension is 6.5 cm. The remaining cut surfaces consist of 60% yellow, lobulated adipose tissue and 40% fibrous tissue with patchy cystic change. No lymph nodes are identified grossly. [employer] sections are submitted: 1. Nipple, perpendicular and en face base 2. 1 cm subjacent to nipple 3-5. Lateral edge of the mass perpendicular to the anterior-superio r margin; the sections are taken from the most lateral slice of the breast (no lateral bracketing section) yellow ink on each section abuts A6 6-7. Remaining mass; A7 is the medial edge A6 is biopsy site 8. Medial bracketing section (presumably without mass) 9. Posterior margin 10. Anterior-inferio r margin 11. Bridging section between the 2 biopsy sites 12-16. Biopsy site with the coil clip sequentially submitted lateral (A12) to medial (A16) 17. Anterior-superio r margin 18. Posterior and anterior-inferio r margins 19. Upper outer quadrant 20. Lower outer quadrant 21. Upper inner quadrant 22. Lower inner quadrant Time removed from patient: 1026 Time placed in formalin: 1123 Date removed and placed in formalin: 09/05/2024 Cold ischemic time < 60 minutes. The specimen was fixed in formalin for a minimum of 6 hours and not longer than 72 hours. DPL 09/06/2024 B) Received fresh, labeled with the patient's name and left axillary sentinel lymph nodes, are 3 lymph nodes ranging in size from 1.2-2 cm in greatest dimension. The lymph nodes are differentially inked (red, blue, and black). The lymph node that is inked red and sectioned into 4 pieces, the lymph node that is inked blue is sectioned into 3 pieces, and the lymph node that is inked black and sectioned into 3 pieces. Intraoperative touch preparations are performed on all crystal cut surfaces (1 lymph node/slide). A biopsy clip is not grossly identified within the specimen. The lymph nodes are entirely submitted in three cassettes (1 lymph node in each cassette). Time removed from patient: 1033 Time placed in formalin: 1120 Date removed and placed in formalin: 09/05/2024 Cold ischemic time < 60 minutes. The specimen was fixed in formalin for a minimum of 6 hours and not longer than 72 hours. RAL 09/05/2024 C) Received fresh, labeled with the patient's name and right breast mastectomy stitch superior, is a 500 gram, 15 (M-L) x 19 (S-I) x 3 (A-P) cm oriented simple breast mastectomy specimen without attached axillary contents. There is an attached 7 x 3.5 cm portion of skin with a 1.5 cm everted nipple and 3 cm surrounding areola. No skin scars or lesions are identified. The specimen is inked: Anterior-superio r: Blue Anterior-inferio r: Red Posterior: Black The cut surfaces consist of 60% yellow, lobulated adipose tissue and 40% fibrous tissue with patchy cystic change. No lesion is identified. No lymph nodes are identified grossly. Engine Boss sections are submitted: 1. Nipple, perpendicular and en face base 2. 1 cm subjacent to the nipple 3-4. Upper outer quadrant 5-6. Lower outer quadrant 7-8. Upper outer quadrant; C8 with anterior-superio r margin 9-10. Lower outer quadrant Time removed from patient: 1125 Time placed in formalin: 1208 Date removed and placed in formalin: 09/05/2024 Cold ischemic time < 60 minutes. The specimen was fixed in formalin for a minimum of 6 hours and not longer than 72 hours. RAL 09/05/2024 D) Received fresh labeled with the patient's name and left breast; additional posterior lateral tissue; suture smith where tissue was attached, is a 13 g, 4.8 x 3.5 x 1.5 cm excision of fatty breast tissue which has been previously oriented and inked by the surgeon: Anterior--[place] --with suture indicating attachment site Posterior margin--Black Superior--Blue Inferior--Red Medial--Green Lateral margin--Yellow The tissue is sectioned from superior to inferior into 11 slices. The parenchyma is 90% glistening lobulated adipose tissue with 10% thin fibrous bands. No lesion is seen. Engine [employer] sections are submitted: 1. Slice 1 superior perpendicular to ink 2-3. Slices 2-3 with lateral and posterior margins 4-5. Composite slice 4 bisected 6-7. Slices 5-6 with lateral and posterior margins 8-9. Composite slice 7 bisected 10-12. Slices 8-10 with lateral and posterior margins 13. Slice 11 inferior perpendicular to ink Time removed from patient: 1135 Time placed in formalin: 1155 Date removed and placed in formalin: 09/05/2024 Cold ischemic time < 60 minutes. The specimen was fixed in formalin for a minimum of 6 hours and not longer than 72 hours. DPL 09/06/2024 09/08/2024 11:24 AM CDT [facility] Intraoperative Consultation A) LEFT BREAST, MASTECTOMY, STATUS POST NEOADJUVANT CHEMOTHERAPY, INTRAOPERATIVE CONSULTATION (Gross Evaluation Only): 1. No gross residual tumor identified 2. Biopsy site change is identified grossly 3. Margins are grossly negative 4. The mastectomy specimen is 558 grams Cezar Mcdonald MD, 09/05/2024 11:20 AM B) LYMPH NODE, LEFT AXILLARY SENTINEL LYMPH NODES, INTRAOPERATIVE CONSULTATION WITH CYTOLOGY PREPARATIONS (3): 1. Touch imprints are evaluated and show 3 nodes negative for malignancy Cezar Mcdonald MD, 09/05/2024 11:20 AM C) RIGHT BREAST, MASTECTOMY, STATUS POST NEOADJUVANT CHEMOTHERAPY, INTRAOPERATIVE CONSULTATION (Gross Evaluation Only): 1. No tumor grossly identified 2. Biopsy site change is not identified grossly 3. Margins are grossly negative 4. The mastectomy specimen is 500 grams Cezar Mcdonald MD, 09/05/2024 12:05 PM Intraoperative consultation, which may have included frozen section preparation, gross specimen examination, and/or cytology touch imprints/smears, was performed by a pathologist during the surgical procedure. This testing was performed at: [address] [id number] 09/08/2024 11:24 AM [facility] Active [facility] Microscopic Description The final diagnosis is based on microscopic examination of appropriate sections of all specimens. 09/08/2024 11:24 AM [facility] Active [facility] SYNOPTIC REPORTING INVASIVE CARCINOMA OF THE BREAST: Resection INVASIVE CARCINOMA OF THE BREAST: RESECTION - A, B, D 8th Edition - Protocol posted: 08/18/2023 SPECIMEN Procedure: Total mastectomy Specimen Laterality: Left TUMOR Tumor Site: Clock position : 3 o'clock Histologic Type: No residual invasive carcinoma Tumor Size: No residual invasive carcinoma Ductal Carcinoma In Situ (DCIS): Not identified Lobular Carcinoma In Situ (LCIS): Not identified Lymphatic and / or Vascular Invasion: Not identified Dermal Lymphatic and / or Vascular Invasion: No skin present Treatment Effect in the Breast: No residual invasive carcinoma is present in the breast after presurgical therapy Treatment Effect in the Lymph Nodes: No lymph node metastases and no fibrous scarring or histiocytic aggregates in the nodes Residual Cancer [place] (RCB) Parameters: Greatest Dimension of Primary Tumor Bed Area (Millimeters): 0 mm Second Greatest Dimension of Primary Tumor Bed Area (Millimeters): 0 mm Percentage of Overall Cancer Cellularity: 0 % Percentage of Cancer that is In Situ Disease: 0 % Number of Positive Lymph Nodes: 0 Diameter of Largest Crystal Metastasis (Millimeters): 0 mm Residual Cancer [place]: 0 Residual Cancer [place] Class: RCB-0 (pCR) REGIONAL LYMPH NODES Regional Lymph Node Status: : All regional lymph nodes negative for tumor Total Number of Lymph Nodes Examined (sentinel and non-sentinel): 3 Number of [employer] Nodes Examined: 3 pTNM CLASSIFICATION (AJCC 8th Edition) Reporting of pT, pN, and (when applicable) pM categories is based on information available to the pathologist at the time the report is issued. As per the AJCC (Chapter 1, 8th Ed.) it is the managing physician's responsibility to establish the final pathologic stage based upon all pertinent information, including but potentially not limited to this pathology report. Modified Classification: y pT Category: pT0 pN Category: pN0 N Suffix: (sn) SPECIAL STUDIES Estrogen Receptor (ER) Status: Negative Progesterone Receptor (PgR) Status: Negative HER2 (by immunohistochemi stry): Negative (Score 0) Testing Performed on Comment(s): Ancillary studies block: Biopsy: [id number] 09/08/2024 11:24 AM CDT [facility] Additional Information Interpreted at [facility] [employer] [facility] - [address] [facility] [address], [place] [address] 09/08/2024 11:24 AM CDT [facility] ENTRMN LABORATORY Other (Left Breast Mastectomy) 09/05/2024 10:26 AM CDT 09/05/2024 8:34 PM CDT Specimen (specimen) (Left Breast [employer] Node) 09/05/2024 10:33 AM CDT 09/05/2024 8:34 PM CDT Specimen (specimen) (Right Breast Mastectomy) 09/05/2024 11:25 AM CDT 09/05/2024 8:34 PM CDT Specimen (specimen) (Left Breast) 09/05/2024 11:35 AM CDT 09/05/2024 8:34 PM CDT us Kasandra Tesfaye MD PATHOLOGY/CYTOLOGY Final Result [facility] [address] [place] [address], [place] * XR MAMMO VICKY UNI ADDL VIEWS LEFT (01/25/2024 2:09 PM [employer]) Anatomical Region Laterality Modality BREASTS, Breast Left Mammography 01/25/2024 2:30 PM [employer] Impressions 01/25/2024 3:05 PM [employer] Indeterminate solid-appearing nodule LEFT breast 3 o'clock 7 cm from the nipple measuring 1.1 cm. RECOMMENDATIONS: Ultrasound-guided core needle biopsy. BI-RADS Category 4. Suspicious. Dictated by: Paramjit Tsang MD @01/25/2024 2:30:50 PM/[facility] PATIENTS: You will also receive a letter with your examination results in an easy to read format. If you have questions about your results, please contact your referring provider. Narrative 01/25/2024 3:05 PM [employer] As a result of the Century Cures Act, medical imaging exams and procedure reports are released immediately into your electronic medical record. You may view this report before your referring provider. If you have questions, please contact your health care provider. LEFT BREAST MAMMOGRAM DIGITAL ADDITIONAL VIEWS WITH TOMOSYNTHESIS 01/25/2024 LEFT BREAST ULTRASOUND 01/25/2024 CLINICAL HISTORY: LEFT breast mass/asymmetry. COMPARISON: 01/10/2024. TECHNIQUE: Digital LEFT mammogram in 2 projections. Tomosynthesis was used in this interpretation. Real-time ultrasound imaging of LEFT breast with imaging documentation. BREAST COMPOSITION: The breasts are heterogeneously dense, which may obscure small masses. FINDINGS: 3D spot compression CC/MLO LEFT breast mammogram images submitted. Persistent nodular density within the lateral LEFT breast. No architectural distortion. No suspicious calcifications. No adenopathy. Targeted LEFT breast ultrasound 3 o'clock 7 cm from the nipple performed. Solid-appearing hypoechoic nodule is present at mid depth measuring 9 x 10 x 11 millimeters. A micro lobulation appears to be present posteriorly. us Yesenia Degroot MD MAMMO Final Re sult * LIPID PANEL (12/29/2021 11:56 AM CDT) CHOLESTEROL,TOTAL 173 100 - 199 mg/dL 12/30/2021 5:23 PM CDT [facility] TRIGLYCERIDES 34 <150 mg/dL 12/30/2021 5:23 PM CDT [facility] HDL CHOLESTEROL 61 >40 mg/dL 2 5:23 PM CDT [facility] NON-HDL CHOLESTEROL 112 <145 mg/dl 12/30/2021 5:23 PM CDT [facility]ORY CHOL/HDL RATIO 2.84 <4.50 12/30/2021 5:23 PM CDT [facility] LDL CHOLESTEROL 105 <=130 mg/dL 12/30/2021 5:23 PM CDT [facility] VLDL CHOLESTEROL 7 <=30 mg/dL 12/30/2021 5:23 PM CDT [facility] PROVIDER ORDERED STATUS RANDOM 12/30/2021 5:23 PM CDT [facility] Blood BLOOD SPECIMEN / Unknown Venipuncture / Unknown 12/29/2021 11:56 AM CDT 12/29/2021 11:57 AM CDT us Yesenia Degroot MD CHEMISTRY Final Re sult [facility] [address] [place] [address], [place] * DATA MIGRATION LEAD THIN PREP PAP SCREEN IMAGED (12/13/2020 8:25 AM CDT) Case Report Gynecologic Cytology Report Case: [id number] Authorizing Provider: Yesenia Degroot MD Collected: 12/13/2020 0825 Ordering Location: [facility] Received: 12/13/2020 0911 [facility] First Screen: Lobo Wilkes Specimen: DATA MIGRATION LEAD ThinPrep Vial Screening, Cervical 12/29/2020 11:14 AM CDT [facility] [employer] ENTRAL LABORATORY INTERPRETATION/ RESULT NEGATIVE FOR INTRAEPITHELIAL LESION OR MALIGNANCY (NIL) (none) 12/29/2020 11:14 AM CDT [facility] [employer] ENTRAL LABORATORY at 1114 CDT SPECIMEN ADEQUACY Satisfactory for evaluation Endocervical component present 12/29/2020 11:14 AM CDT [facility] [employer] ENTRAL LABORATORY HPV REQUEST HPV if ASCUS 12/29/2020 11:14 AM CDT [facility] ENTRAL LAB[facility]AT[facility] Date of LMP 12/01/202012/29/2020 11:14 AM [facility] Last Pap Date 06/15/17 12/29/2020 11:14 AM CDT [facility] ENTRAL LABORAT[facility] Last Pap Result NIL 11:14 AM CDT [facility] ENTRAL LABORATORY Abnormal Pap or Chester Bx in last 5 years No 12/29/2020 11:14 AM CDT [facility] EN[facility]AL LAB[facility]ATORY Menstrual Status Regular Periods 12/29/2020 11:14 AM CDT [facility] ENTRAL LABORATORY Chester Bx Done Today No 12/29/2020 11:14 AM CDT [facility] ENTRMN LABORATORY Additional Information None given 12/29/2020 11:14 AM CDT [facility] ENTRAL LABORATORY Comment: Cytology is screened at [facility] Laboratory - [address], [place] [address] and [facility] - [address] [place] [address] and [facility] - [address] [place] [address] Interpreted at [facility] - [address], [place] [address] Automated Review Successful 12/29/2020 11:14 AM CDT [facility] Comment:Specimen processed s uccessfully by automated farm field manager device, [employer] Imaging System, [employer] Note The pap test is a screening technique, not a diagnostic procedure. It is used primarily to screen for squamous cancers and precursor lesions. Published studies have shown that it is subject to both false negative and false positive results. The pap test should not be used as the sole means to diagnose or exclude pre-malignant and malignant lesions. 12/29/2020 11:14 AM CDT [facility] Other (Cervical) Non-Blood / Unknown 12/13/2020 8:25 AM CDT 12/13/2020 9:11 AM CDT us Yesenia Degroot MD PATHOLOGY/CYTOLOGY Final Result [facility] [address] [place] [address], from Last 3 Months or Most Recently Relevant to Health Maintenance Insurance COSMETIC PROCEDURE HB ONLY . ATTN: BILLING [facility] [place] [address] [facility] [employer] CHOICE Advance Directives * Full Code (Latest Code Status on File) Date Activated Date Inactivated Comments 05/13/2009 9:39 AM 05/13/2009 4:44 PM * Full Code Date Activated Date Inactivated Comments 05/13/2009 6:12 AM 05/13/2009 9:39 AM * Full Code Date Activated Date Inactivated Comments 09/28/2006 7:59 AM 09/28/2006 12:40 PM Care Teams Teletypesetter Monitor Relationship Specialty Start Date End Date Yesenia Degroot MD [address] [address] PCP - General Obstetrics and Gynecology 01/25/24
--- OUTSIDE RECORDS SUMMARY | 2024-09-08 15:54 | XMS_ITS | Data Portability ---
Author Organization [facility] - [employer] CL[facility], [id number] Address [address] [place] [address] Assessment No assessment recorded. Plan of Treatment Reminders Order Date Submit Date Provider Last Modified By Organization Details Last Modified Time Details Appointments G_OFFI CE VISIT 2024 10:00A Ander KING MD Not available Not available Not available Lab CBC w/ diff 2024 025 [facility], [address], [address], [place], [address], 08/23/2024 06:26:14 CMP, serum or plasma 2024 025 [facility], [address], [address], [place], [address], 08/23/2024 06:26:17 pap, LB + HR HPV 2023 024 [facility], [address], [address], [place], [address], 01/31/2024 12:16:07 lipid panel, serum 2022 023 [facility], [address], [address], [place], [address], 01/09/2023 03:07:54 hemogl obin A1c, QN, blood 2022 023 [facility], [address], [address], [place], [address], 01/08/2023 21:18:51 TSH, serum or plasma 2022 023 [facility], [address], [address], [place], [address], 01/09/2023 03:07:54 Referral None record ed. Procedures None record ed. Surgeries None record ed. Imaging MAMMO, screen ing, digita l, bilate ral 2023 024 [facility], [address], [place], [address], 02/07/2024 11:37:58 MAMMO, screen ing, digita l, bilate ral 2022 023 [facility] (Mammogram), [address], [address], [place], [address], 01/20/2024 12:30:26 Medication Orders None record ed. Patient TargetsNo targets recorded. Patient Instructions Encounter Date Encounter Id Patient Instructions Last Modified By Organization Details Last Modified Time 01/08/2023 [id number] A healthy lifestyle: care instructions [email or web address] Not available 01/08/2023 10:46:35 learning about control [email or web address] Not available 01/08/2023 10:46:35 Pap test: care instructions Not available 01/08/2023 10:46:35 safer sex: care instructions [email or web address] Not available 01/08/2023 10:46:35 skin cancer prevention: care instructions [email or web address] Not available 01/08/2023 10:46:35 Well Visit, Ages 18 to 65: Care Instructions Not available 01/08/2023 10:46:36 gonorrhea and chlamydia: about these tests [email or web address] Not available 01/08/2023 10:46:36 HPV (human papillomavirus) vaccine: what you need to know [email or web address] Not available 01/08/2023 10:46:36 learning about depression screening [email or web address] Not available 01/08/2023 10:46:36 learning about m ood disorders [email or web address] Not available 01/08/2023 10:46:36 learning about stress Not available 01/08/2023 10:46:36 breast self-exam : care instructions [email or web address] Not available 01/08/2023 10:46:36 venous blood draw* [email or web address] Not availab le 01/08/2023 10:46:36 Cervical Cancer [...] Testing for Inheritable Disorders (Carrier Screening): The [employer] recommends that [...] baby would also need to be tested. [email or web address] Not available 12/24/2022 09:44:23 01/24/2024 [id number] A healthy lifestyle: care instructions [email or web address] Not available 01/24/2024 14:42:41 learning about control Not available 01/24/2024 14:42:41 Pap test: care instructions [email or web address] Not available 01/24/2024 14:42:41 safer sex: care instructions [email or web address] Not available 01/24/2024 14:42:41 skin cancer prevention: care instructions [email or web address] Not available 01/24/2024 14:42:41 Well Visit, Ages 18 to 65: Care Instructions [email or web address] Not available 01/24/2024 14:42:41 gonorrhea and chlamydia: about these tests [email or web address] Not available 01/24/2024 14:42:40 HPV (human papillomavirus) vaccine: what you need to know Not available 01/24/2024 14:42:41 learning about depression screening Not available 01/24/2024 14:42:41 learning about m ood disorders [email or web address] Not available 01/24/2024 14:42:40 learning about stress [...] Testing for Inheritable Disorders (Carrier Screening): The [employer] recommends that [...] baby would also need to be tested. [email or web address] Not available 12/29/2023 17:21:57 Reason for Referral None Reported. Results Created Date Observation Date Name Description Value Unit Range Abnormal Flag Note LastModifiedBy Organization Detail LastModifiedTime 01/09/20 23 01/08/2023 HEMOG LOBIN A1C hemoglobin A1C 5.2 % <5.7 Hayley l <5.7% Predi abete s 5.7-6 .4% Diabe jersey 6.5% or highe r Note: Adopt ed from ADA conse nsus guide lines . Not Available [facility] [address], [place], [address], 01/08/2023 21:18:51 01/09/20 23 01/08/2023 TSH WITH REFLE X TO FREE T4 TSH 1.21 uIU/m L 0.30-4 .20 Not Available [address], [place], [address], 01/09/2023 03:07:54 01/09/20 23 01/08/2023 LIPID PANEL cholesterol 188 mg/dL <200 Not Available [address], [place], [address], 01/09/2023 03:07:54 01/09/20 23 01/08/2023 LIPID PANEL triglyceride s 46 mg/dL <150 Not Available [address], [place], [address], 01/09/2023 03:07:54 01/09/2001/08/2023 LIPID PANEL direct measure HDL 69 mg/dL >=50 Not Available [address], [place], [address], 01/09/2023 03:07:54 01/09/20 23 01/08/2023 LIPID PANEL LDL cholesterol calculated 110 mg/dL <=100 high Not Available [address], [place], [address], 01/09/2023 03:07:54 01/09/2001/08/2023 LIPID PANEL non HDL cholesterol 119 mg/dL [...] mg/dL Above Tana able: 130-1 59 mg/dL Borde rline High: 160-1 89 mg/dL High: 190-2 19 mg/dL Very High: Great er than or equal to 220 mg/dL Not Available [address], [place], [address], 01/09/2023 03:07:54 01/24/20 24 01/24/2024 HPV AND GYNEC OLOGI C CYTOL OGY PANEL human papilloma virus 16 DNA Negati ve negati ve Not Available [address], [place], [address], 01/31/2024 12:16:07 01/24/20 24 01/24/2024 HPV AND GYNEC OLOGI C CYTOL OGY PANEL human papilloma virus 18 DNA Negati ve negati ve Not Available [address], [place], [address], 01/31/2024 12:16:07 01/24/20 24 01/24/2024 HPV AND GYNEC OLOGI C CYTOL OGY PANEL human papilloma virus other Negati ve negati ve Not Available [address], [place], [address], 01/31/2024 12:16:07 01/24/20 24 01/24/2024 HPV AND GYNEC OLOGI C CYTOL OGY PANEL final diagnosis See note below This patie nt's sampl e is negat thai for high risk HPV DNA. METHO DOLOG [...] l cervi negrita cytol ogy. Resul ts shoul d be corre lated with cytol ogic and histo logic findi ngs. Close clini negrita follo w up is recom ectormonica anderson see the separ ate Gynec ologi c Cytol ogy (Pap) repor t from the same colle ction date. Not Available [address], [place], [address], 01/31/2024 12:16:07 01/24/20 24 01/24/2024 GYNEC OLOGI C CYTOL OGY PAP SMEAR gynecologic cytology SEE RESULT S BELOW SPECI MEN SOURC E [place] ing Cervi x BKR LAB AP EXPERIMENTAL WELDER INTER PRETA TION: Negat thai for Intra epith elial Lesemerald n or El alcantara (NILM ) Elect krunal finnegan machelle d by Ivy burch, Jovanni E, CT (ASCP ) on 2023 at 11:14 [...] or other cance rs. BKR LAB AP EXPERIMENTAL WELDER ADEQU ACY: Satis facto ry for evalu [...] this testi ng was compl eted at [facility] . Stain contr ols for all stain s resul juve withi n this repor t have been revie wed and show appro priat e react ivity . BKR AP ASSOC IATED HPV REPOR T: Pleas e see the assoc iated HPV High Risk Types DNA Cervi negrita repor t for Speci men [id number] from the same colle ction date. Not Available [address], [place], [address], 01/31/2024 12:16:09 08/23/19 25 08/22/2024 CBC WITH PLATE LETS WBC count 7.3 10e3/ uL 4.0-11 .0 Not Available [address], [place], [address], 08/23/2024 06:26:14 08/23/1908/22/2024 CBC WITH PLATE LETS RBC count 4.04 10e6/ uL 3.80-5 .20 Not Available [address], [place], [address], 08/23/2024 06:26:14 08/23/19 25 08/22/2024 CBC WITH PLATE LETS hemoglobin 12.7 g/dL 11.7-1 5.7 Not Available [address], [place], [address], 08/23/2024 06:26:14 08/23/19 08/22/2024 CBC WITH PLATE LETS hematocrit 38.5 % 35.0-4 7.0 Not Available [address], [place], [address], 08/23/2024 06:26:14 08/23/1908/22/2024 CBC WITH PLATE LETS MCV 95 fL 78-100 Not Available [address], [place], [address], 08/23/2024 06:26:14 08/23/1908/22/2024 CBC WITH PLATE LETS MCH 31.4 pg 26.5-3 3.0 Not Available [address], [place], [address], 08/23/2024 06:26:14 08/23/1908/22/2024 CBC WITH PLATE LETS MCHC 33.0 g/dL 31.5-3 6.5 Not Available [address], [place], [address], 08/23/2024 06:26:14 08/23/1908/22/2024 CBC WITH PLATE LETS RDW 12.5 % 10.0-1 5.0 Not Available [address], [place], [address], 08/23/2024 06:26:14 08/23/1908/22/2024 CBC WITH PLATE LETS platelet count 286 10e3/ uL 150-45 0 Not Available [address], [place], [address], 08/23/2024 06:26:14 08/23/1908/22/2024 CBC WITH PLATE LETS % neutrophils 62 % Not Available [address], [place], [address], 08/23/2024 06:26:14 08/23/1908/22/2024 CBC WITH PLATE LETS % lymphocytes 26 % Not Available [facility] [address], [place], [address], 08/23/2024 06:26:14 08/23/1908/22/2024 CBC WITH PLATE LETS % monocytes 10 % Not Available [facility] [address], [place], [address], 08/23/2024 06:26:14 08/23/1908/22/2024 CBC WITH PLATE LETS % eosinophils 2 % Not Available [facility] [address], [place], [address], 08/23/2024 06:26:14 08/23/1908/22/2024 CBC WITH PLATE LETS % basophils 1 % Not Available [facility] [address], [place], [address], 08/23/2024 06:26:14 08/23/1908/22/2024 CBC WITH PLATE LETS % immature granulocytes 0 % Not Available [facility] [address], [place], [address], 08/23/2024 06:26:14 08/23/1908/22/2024 CBC WITH PLATE LETS NRBCs per 100 WBC 0 /100 <1 Not Available [facility] [address], [place], [address], 08/23/2024 06:26:14 08/23/19 25 08/22/2024 CBC WITH PLATE LETS absolute neutrophils 4.5 10e3/ uL 1.6-8. 3 Not Available [address], [place], [address], 08/23/2024 06:26:14 08/23/19 25 08/22/2024 CBC WITH PLATE LETS absolute lymphocytes 1.9 10e3/ uL 0.8-5. 3 Not Available [address], [place], [address], 08/23/2024 06:26:14 08/23/1908/22/2024 CBC WITH PLATE LETS absolute monocytes 0.7 10e3/ uL 0.0-1. 3 Not Available [address], [place], [address], 08/23/2024 06:26:14 08/23/19 25 08/22/2024 CBC WITH PLATE LETS absolute eosinophils 0.1 10e3/ uL 0.0-0. 7 Not Available [address], [place], [address], 08/23/2024 06:26:14 08/23/19 25 08/22/2024 CBC WITH PLATE LETS absolute basophils 0.1 10e3/ uL 0.0-0. 2 Not Available [address], [place], [address], 08/23/2024 06:26:14 08/23/19 25 08/22/2024 CBC WITH PLATE LETS absolute immature granulocytes 0.0 10e3/ uL <=0.4 Not Available [address], [place], [address], 08/23/2024 06:26:14 08/23/1908/22/2024 CBC WITH PLATE LETS absolute NRBCs 0.0 10e3/ uL Not Available [address], [place], [address], 08/23/2024 06:26:14 08/23/1908/22/2024 COMPR EHENS THAI METAB OLIC PANEL sodium 140 mmol/ L 135-14 5 Not Available [address], [place], [address], 08/23/2024 06:26:17 08/23/19 25 08/22/2024 COMPR EHENS THAI METAB OLIC PANEL potassium 4.2 mmol/ L 3.4-5. 3 Not Available [address], [place], [address], 08/23/2024 06:26:17 08/23/1908/22/2024 COMPR EHENS THAI METAB OLIC PANEL carbon dioxide (co2) 25 mmol/ L 22-29 Not Available [address], [place], [address], 08/23/2024 06:26:17 08/23/19 25 08/22/2024 COMPR EHENS THAI METAB OLIC PANEL anion gap 12 mmol/ L 7-15 Not Available [address], [place], [address], 08/23/2024 06:26:17 08/23/1908/22/2024 COMPR EHENS THAI METAB OLIC PANEL urea nitrogen 11.6 mg/dL 6.0-20 .0 Not Available [address], [place], [address], 08/23/2024 06:26:17 08/23/1908/22/2024 COMPR EHENS THAI METAB OLIC PANEL creatinine 0.66 mg/dL 0.51-0 .95 Not Available [address], [place], [address], 08/23/2024 06:26:17 08/23/1908/22/2024 COMPR EHENS THAI METAB OLIC PANEL GFR estimate >90 mL/mi n/1.7 3m2 >60 eGFR calcu lated using 2020 CKD-E PI equat ion. Not Available [address], [place], [address], 08/23/2024 06:26:17 08/23/19 25 08/22/2024 COMPR EHENS THAI METAB OLIC PANEL calcium 10.1 mg/dL 8.8-10 .4 Not Available [address], [place], [address], 08/23/2024 06:26:17 08/23/1908/22/2024 COMPR EHENS THAI METAB OLIC PANEL chloride 103 mmol/ L 98-107 Not Available [address], [place], [address], 08/23/2024 06:26:17 08/23/19 25 08/22/2024 COMPR EHENS THAI METAB OLIC PANEL glucose 98 mg/dL 70-99 Not Available [address], [place], [address], 08/23/2024 06:26:17 08/23/19 25 08/22/2024 COMPR EHENS THAI METAB OLIC PANEL alkaline phosphatase 63 U/L 40-150 Not Available [address], [place], [address], 08/23/2024 06:26:17 08/23/19 25 08/22/2024 COMPR EHENS THAI METAB OLIC PANEL AST 20 U/L 0-45 Not Available [address], [place], [address], 08/23/2024 06:26:17 08/23/1908/22/2024 COMPR EHENS HTAI METAB OLIC PANEL ALT 24 U/L 0-50 Not Available [address], [place], [address], 08/23/2024 06:26:17 08/23/1908/22/2024 COMPR EHENS THAI METAB OLIC PANEL protein total 7.0 g/dL 6.4-8. 3 Not Available [address], [place], [address], 08/23/2024 06:26:17 08/23/19 25 08/22/2024 COMPR EHENS THAI METAB OLIC PANEL albumin 4.6 g/dL 3.5-5. 2 Not Available [facility] [address], [place], [address], 08/23/2024 06:26:17 08/23/19 25 08/22/2024 COMPR EHENS THAI METAB OLIC PANEL bilirubin total 0.4 mg/dL <=1.2 Not Available [facility] [address], [place], [address], 08/23/2024 06:26:17 02/28/20 24 02/25/2024 biops y, breas t, w/ ultra sound fransico nce (PROC ) No observ ation record ed. [email or web address] [facility] [address] [place], [address], 03/02/2024 13:19:24 Result Notes None recorded. Problems Name Problem SNOMED Code Status Onset Date Resolution Date Notes Provider Name and Address Organization Details Recorded Time Urinary tract infectious disease 31695490 Active Maria Luisa hdez [place] - [facility] 09:16:54 Problem Notes None recorded. Procedures Surgical History Date Name Laterality Status Provider Name and Address Organization Details Recorded Time 01/24/20 [facility] Annual Well-Woman Visit age 40-64 [place] [address] [place] [address] completed Tesha kwon [place] [employer] [facility] 12/29/2023 17:21:57 01/07/20 24 Date of Last Mammogram completed Tesha kwon [place] - [facility] 01/24/2024 14:10:31 01/09/20 23 [facility] Annual Well-Woman Visit age 40-64 EST [address] [place] NEW [address] completed Crystal Beebe [place] - [employer] [facility] [facility] 12/24/2022 09:44:24 12/14/19 21 Date of Last Pap Smear completed Tesha kwon [place] - [facility] 08/22/2024 11:30:53 09/30/19 20 Date of Last Colonoscopy completed Maria Luisa Travis [place] [employer] [facility] 01/08/2023 09:21:08 03/01/19 20 Colonoscopy completed Tesha Ellertho doyle [place] - [employer] [facility] 08/22/2024 11:31:10 05/14/19 10 abdominoplasty completed Maria Luisa Travis [place] [facility] 01/08/2023 09:21:00 03/01/19 09 Abdominoplasty completed Tesha kwon [place] [facility] 08/22/2024 11:31:10 09/29/19 07 section completed Maria Luisa Travis [place] [facility] 01/08/2023 09:20:10 03/01/19 07 Caesarean Section completed Tesha kwon [place] [facility] 08/22/2024 11:31:10 08/03/19 06 section completed Maria Luisa Travis [place] [facility] 01/08/2023 09:20:06 03/01/19 06 Caesarean Section completed Tesha kwon [place] - [employer] [facility] 08/22/2024 11:31:10 03/01/19 04 extraction of wisdom tooth completed Maria Luisa Travis [place] [facility] 01/08/2023 09:21:45 Imaging Results None recorded. Procedure [...] Updated DateTime 08/22/2024 154.94 cm 26.4 kg/m2 02833.49 g 71 /min 118/80 mm[Hg] [facility] FOOD CLERK 08/22/2024 11:40:00 Date Recorded Heart rate Body height Body mass index (BMI) Body weight Systolic And Diastolic Provider Name and Address Organization Details Last Updated DateTime 01/08/2023 70 /min 154.94 cm 27.5 kg/m2 13115.77 g 110/72 mm[Hg] Maria Luisa Travis [facility] FOOD CLERK 01/08/2023 09:06:59 Date Recorded Body weight Body mass index (BMI) Body height Heart rate Systolic And Diastolic Provider Name and Address Organization Details Last Updated DateTime 01/24/2024 24674.2 g 27.6 kg/m2 154.94 cm 88 /min 107/65 mm[Hg] [facility] FOOD CLERK 01/24/2024 14:12:23 Social History Question Answer Notes LastModified by Organizat ion Details LastModified Time Tobacco Smoking Status Never Smoker Maria Luisa hdez [facility] FOOD CLERK 01/08/2023 09:17:58 Do You Have An Advance [...] Organization Details LastModified Time Mother Hyperlipidem ia [email or web address] Not available 2024 11:06:59 Mother Malignant neoplasm of skin Basal and [place] us Not available 01/08/2023 09:22:47 Mother Mitral valve prolapse [email or web address] Not available 2024 11:06:59 Mother Blood coagulation [...] Not available 01/08/2023 09:23:12 Father Hyperlipidem ia [email or web address] Not available 2024 11:06:59 Father Diabetes mellitus pt. added direct ly (08/19) [email or web address] Not available 08/19/2024 16:05:22 Maternal Grandfather Amyotrophic lateral sclerosis [email or web address] Not available 2024 11:06:59 Paternal Grandmother Diabetes mellitus Not available 2022 09:23:43 Paternal Grandmother Hypertensive disorder Not available 2022 09:23:53 Paternal Grandfather Malignant neoplastic disease unknow n [email or web address] Not available 08/22/2024 11:06:59 Maternal Grandmother Hypercholest erolemia pt. added direct ly (08/19) [email or web address] Not available 08/19/2024 16:05:51 Maternal Uncle Malignant neoplasm of prostate pt. added direct ly (08/19) [email or web address] Not available 08/19/2024 16:06:16 Medical History Condition Response GI- Colon Polyps Y Urology- Recurrent Urinary Tract Infecti ons Y Cancer- Breast Y Gynecological History Statement/Question Response History of [...] SNOMED-CT Code Diagnosis ICD10 Code Diagnosis Note [id number] CHARISSE KING MD [id number] EDVIN EATON [address] [address] 01/08/2023 08:49:42 01/08/2023 14:49:51 Gynecologic examination 69631284 Z01.419 Screening for malignant neoplasm of breast 853438968 Z12.39 [id number] CHARISSE KING MD [id number] EDVIN HUERTASWO OD [address] [address] 01/24/2024 13:56:34 01/24/2024 15:33:00 Gynecologic examination 46316689 Z01.419 Screening for malignant neoplasm of cervix 511267724 Z12.4 Screening for malignant neoplasm of breast 527897390 Z12.39 [id number] CHARISSE KING MD [id number] ALLANSONI ALEKSANDARWO OD [address] [address] 08/22/2024 10:55:40 08/22/2024 12:41:20 Preprocedural examination done [id number] 33678 Z01.818 The patient is cleared for anesthesia with no signs of infection. Results will be faxed when we get them back Health Concerns Section Related Observation LastModified by Organization Detai ls LastModified Time None Recorded Concern Status LastModified by Organization Details LastModified Time None Recorded Advance Directives Directive N: Payers Insurance Date Sequence Insurance Name Policy Number Policy Paiz Covered Member ID Paiz Member ID Guarantor Name 01/24/2024 1 MEDICA CHOICE - [facility] - CHOICE PLUS (POS) Chelsie Calero [id number] Chelsie Calero 07/18/2024 1 [employer] Calero [id number] Chelsie Calero 08/19/2024 1 [facility] [id number] Chelsie Calero [id number] Chelsie Calero Notes Date Note Type Note Provider Name and Address Organization Details Recorded Time 01/08/2023 text/html [facility] Annual Well-Women Visit Age 40-64Reported bypatient.Current Medical History:active medical problems Relevant Family History:has a family history of colon cancer Last Pap smear:last Pap smear was normal Mammography:up-to-date Bone Density Study:not applicable Colorectal screening:up-to-date Risk factors for cervical cancer ([facility]) Z91.89:no risk factors Medical risk factors:no historical risk factors Contraceptive Method:Current Method Used: vasectomy Sexually Active:Yes: spouse Menstrual cycle:normal menstrual cycle and flow Urinary symptoms:negative Vulva:negative Vagina:negative Breast:negativeNotes:S he quit her job in June and she is not planning on looking for another job for awhile.She has questions for her teenager daughters about contraception and [place] [id number], [place], [address], [place] [employer] [facility] 01/08/2023 10:46:51 01/24/2024 text/html [facility] Annual Well-Women Visit Age 40-64Reported [...] Mammography:up-to-date Bone Density Study:reviewed and documented in EXPERIMENTAL WELDER history Colorectal screening:up-to-date Diabetes screening:reviewed and documented in EXPERIMENTAL WELDER history; screening test: HgA1C Lipid screening:reviewed and documented in EXPERIMENTAL WELDER history;prior lipid screening was abnormal Thyroid screeningreviewed and documented in EXPERIMENTAL WELDER history; prior thyroid screening was normal Risk factors for cervical cancer ([facility]) Z91.89:no risk factors Medical risk factors:no historical risk factors Contraceptive Method:satisfied with current method Sexually Active:Yes: [place] [id number], [place], [address], [place] [employer] [facility] 01/24/2024 14:42:46 08/22/2024 text/html Pre-Op ([facility])Reported bypatient.Procedure:bi lateral mastectomy Procedure Date:09/05/2024 Procedure Location:[facility] Reason for Procedure:cancer Past Medical History significant for:asthma: no; CAD: no; renal insufficiency: no; diabetes: no; congestive heart failure: no; recent CA: no; valvular heart disease: no; sleep apnea: no Bleeding Risk: History of:bleeding or easy bruising: no; bleeding into joints or muscles: no; frequent nosebleeds: yes; heavy menstrual bleeding: no History of bleeding after:loss of teeth or dental extractions: no; previous surgery: no; previous injury: noNotes:[place] [address] [facility],[address], [place], [address], [place] [employer] [facility] 08/22/2024 12:03:07 OBGyn Episode Ob Episode Information Episode Created Date Number of Fetuses Patient Bloodtype Patient rh Status Prepregnancy Weight lbs Domestic Partner Domestic Partner Phone Father Name Drafter Seismograph Status 01/09/20 1 CLOSED Fetus Data First Name Last Name Admitted to NICU Weight (g) Sex Living Outcome Pediatric Complications Fetus ID Race Codes Race Delivery Type 3175.14 4 F Full Term [id number] Micha Calculation Initial Micha Date Initial Exam Date Initial Exam Provider Initial Ultrasound Date Last Menstrual Period Date Ultra Sound Weeks Gestation 0 Eighteen To Twenty Week Micha Update Ultra Sound Date Fundal Height At Umbil Quickening Date Ultra Sound Latest Weeks Gestation Final Micha Confirmed By Final Micha Confirmed Date Final Micha Date Ultra Sound Latest Days Gestation 0 [...] Domestic Partner Domestic Partner Phone Father Name Drafter Seismograph Status 01/09/20 1 CLOSED Fetus Data First Name Last Name Admitted to NICU Weight (g) Sex Living Outcome Pediatric Complications Fetus ID Race Codes Race Delivery Type 3175.14 4 F Full Term [id number] Micha Calculation Initial Micha Date Initial Exam Date Initial Exam Provider Initial Ultrasound Date Last Menstrual Period Date Ultra Sound Weeks Gestation 0 Eighteen To Twenty Week Micha Update Ultra Sound Date Fundal Height At Umbil Quickening Date Ultra Sound Latest Weeks Gestation Final Micha Confirmed By Final Micha Confirmed Date Final Micha Date Ultra Sound Latest Days Gestation 0 [...]
[2024-09-08 15:58] VITALS: BP 153/101; PULSE 91; RESP 16; TEMP 36.7; O2SAT 98; BMI 26.5
--- NOTE | 2024-09-08 16:32 | CRLHL7_ITS ---
For Patients: As a result of the Century Cures Act, medical imaging exams and procedure reports are released immediately into your electronic medical record. You may view this report before your referring provider. If you have questions, please contact your health care provider. INDICATION: Fever, post surgical TECHNIQUE: Chest radiograph 2 views COMPARISON: 02/28/2024 FINDINGS: The sensitivity and specificity of the exam are moderately limited by the patient`s inability to lift the arms. Mediastinum: The mediastinum is normal in appearance. The heart silhouette is normal in size and morphology. Surgical drains are seen over the anterior chest tubes bilaterally. A left Port-A-Cath is present without interval change. Lung: Both lungs are unremarkable in appearance. No sign of pleural effusion seen. No pneumothorax is identified. Bone and Soft tissue: Trace levoscoliosis of the upper thoracic spine is noted. IMPRESSION: 1. No acute cardiopulmonary disease is seen. Dictated by Girma Wetzel MD @ 09/08/2024 5:39:18 PM Dictated by: Girma Wetzel MD @ 09/08/2024 17:39:22 (Electronically Signed)
--- NOTE | 2024-09-08 16:33 | CRLHL7_ITS ---
For Patients: As a result of the Century Cures Act, medical imaging exams and procedure reports are released immediately into your electronic medical record. You may view this report before your referring provider. If you have questions, please contact your health care provider. INDICATION: Left neck swelling. TECHNIQUE: Ultrasound venous duplex left upper extremity. Compression venous exam was performed using neff-scale, color Doppler, and spectral Doppler imaging. COMPARISON: None. FINDINGS: The left internal jugular vein is noncompressible with thrombus visualized on grayscale imaging. The left innominate, subclavian, and axillary veins are patent with normal waveforms. The brachial, basilic, and cephalic veins are fully compressible. The right internal jugular vein is patent with normal waveforms. IMPRESSION: Deep venous thrombosis in the left internal jugular vein. Dictated by Tomi Williamson MD @ 09/08/2024 5:33:21 PM (Electronically Signed)
[2024-09-08 17:18] LABS: Appearance Urine Clear (Clear)
--- NOTE | 2024-09-08 17:24 | ED_ITS ---
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 She did well postoperatively, however in the evening she was noted to have swelling of her right chest wall. I hematoma was noted and plans were made to return to the operating room. In the meantime she became diaphoretic and hypotensive. She did have fluids and 1 unit of blood given with improvement in vital signs. She was then taken to the operating room emergently for hematoma evacuation and to stop any ongoing bleeding. She did well and was discharged home, with bilateral Douglas-Davis drains, today she noted a low-grade fever of 99.2 taken orally at home. She also has left side of her neck swelling and discomfort. She called the surgeon on-call, and was sent to the emergency room for further assessment. She does have a port on the left side, that was placed in January of 2024, she has no history of previous DVTs, and a family history of von Willebrand's disease. Only medication she takes is vitamin-D, and the Vicodin for the discomfort, Denies any chest pain shortness of breath syncope, dizziness, sore throat cough dysuria frequency diarrhea or abdominal pain. Related Data Home Medications ?Medication ?Instructions ?Recorded ?Confirmed cholecalciferol (vitamin D3) 25 25 mcg PO QDAY 02/15/ 4 09/08/24 mcg (1,000 unit) capsule Previous Rx's ?Medication ?Instructions ?Recorded hydrocodone 5 mg-acetaminophen 325 1 - 2 tab PO Q6H WA N Pain #25 tabs 09/05/24 mg tablet Allergies Allergy/AdvReac Type Severity Reaction Status Date / Time No Known Drug Allergies Allergy Verified 09/05/24 07:10 Review of Systems Status of ROS: Reports: 10 or more systems reviewed and unremarkable except as noted in History and below [facility] Medical History Family history of von Willebrand disease ?Z83.2 - Family history of diseases of the blood and blood-forming organs and certain disorders involving the immune mechanism (ICD-10) Surgical History H/O wisdom tooth extraction ?K08.409 - Partial loss of teeth, unspecified cause, unspecified class (ICD- 10) H/O abdominoplasty ?Z98.890 - Other specified postprocedural states (ICD-10) H/O section ?Z98.891 - History of uterine scar from previous surgery (ICD-10) Family History Mother Bleeding disorder Social History Narrative: non-smoker. 1 glass of wine daily. 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 Takes care of parents - mother with Alzheimer's. Has two teenage children. What is your current living situation?: I presently have a place to live Problems where you live: no known problems Problems where you live details: none In the past 12 months, utilities in danger of being shut off: no In past 12 months, lack of transportation kept you from medical appts, meetings, work, or getting things needed for daily living: no In the past 12 mos, have been you worried that your food would run out before you had money to buy more?: never true In the past 12 mos, the food you bought just didn't last and you didn't have money to buy more?: never true Highest level of school completed/degree received: Bachelor's degree Smoking Status: Never smoker Do you use any of these nicotine containing products: None Second hand tobacco smoke exposure: No How often do you have a drink containing alcohol: monthly or less Alcohol type: wine and hard liquor How many standard drinks containing alcohol do you have on a typical day: 1 or 2 How often do you have six or more drinks on one occasion: Never AUDIT-C Alcohol total score: 1 Non-prescribed substance use: denies use Caffeine: Yes How often does anyone, including family, friends and others, physically hurt you : never How often does anyone, including family, friends and others, insult or talk down to you: never How often does anyone, including family, friends and others, threaten you with harm: never How often does anyone, including family, friends and others, scream or curse at you: never Are you using contraception or practicing any form of control: No service: No Exam Narrative: Exam Narrative: Patient is seen in room 1 she is in no apparent distress, she is delightful. She is here with her significant other, her oropharynx is normal good hydration status neck is supple, she does have swelling of the left side of her neck, where her EJ would be. No loss of range of motion side to side, there is no lymphadenopathy noted. No trismus, TMs are normal cranial nerves 3-12 are normal her chest is good air entry bilateral with no wheezing crackles noted, there is no pleuritic pain when she takes breaths in, or guarding. Heart sounds no clicks murmurs or gallops her abdomen is soft and benign, no organomegaly bowel sounds are normal, she moves all extremities independently and well, no swelling of her lower extremities, edema, good pulses peripherally in her arms and her legs. I was able to remove her Geovanny wrap around her chest, she has a normal amount of bruising left greater than right, on her and there is no evidence of any significant redness, other than the bruising. There is normal postoperative. She tells me her STEVE is her draining every 8 hours 10-15 maximum mL of sees clearish red tinged fluid. Const: Vital Signs, click to edit/add: Vital Signs - 24 hr 09/08/24 15:58 09/08/24 18:29 Temperature 98.0 F Pulse Rate [Pulse Oximeter] 91 86 Respiratory Rate 16 18 Blood Pressure [Ri ght Leg] 153/101 H 135/83 Pulse Oximetry 98 97 Oxygen Delivery Me thod Room Air Room Air Documenting provider has reviewed patient's vital signs: yes Course Course ED Course: Patient's ultrasound came back showing an IJ thrombosis, her laboratory work was reasonable, she was started on heparin here, I did speak to both her surgeon, and Socorro KIRBY from our hospitalist program, patient will be admitted to the hospital, for IV heparin, she likely will have her port out tomorrow. She is stable at the present time she does not need antibiotics, I do not think this is septic thrombophlebitis. Vital Signs Vital signs: Initial Vital Signs Temperature 98.0 F 09/08/24 15:58 Temperature Source Oral 09/08/24 15:58 Pulse Rate 91 09/08/24 15:58 Respiratory Rate 16 09/08/24 15:58 Blood Pressure 153/101 H 09/08/24 15:58 Blood Pressure Mean 118 H 09/08/24 15:58 Blood Pressure Position Sitting 09/08/24 15:58 Pulse Oximetry 98 09/08/24 15:58 Oxygen Delivery Method Room Air 09/08/24 15:58 Vital Signs Temperature 98.0 F 09/08/24 15:58 Pulse Rate 91 09/08/24 15:58 Respiratory Rate 16 09/08/24 15:58 Blood Pressure 153/101 H 09/08/24 15:58 Pulse Oximetry 98 09/08/24 15:58 Oxygen Delivery Method Room Air 09/08/24 15:58 Temperature 98.0 F 09/08/24 15:58 Pulse Rate 86 09/08/24 18:29 Respiratory Rate 18 09/08/24 18:29 Blood Pressure 135/83 09/08/24 18:29 Pulse Oximetry 97 09/08/24 18:29 Oxygen Delivery Method Room Air 09/08/24 18:29 Medications Administered Medications: Discontinued Medications Generic Name Dose Route Start Last Admin Trade Name Freq PRN Reason Stop Dose Admin Sodium Chloride 1,000 mls @ 1,000 mls/hr 09/08/24 16:30 09/08/24 18:28 0.9 % Sodium Chloride 1000 Ml IV 09/08/24 17:29 1,000 mls/hr .Q1H CHRISSIE Administration Medical Decision Making MDM Narrative Medical decision making narrative: I do have some concerns that with their left-sided neck swelling that she may have a clot. I did talk to Radiology over what would be the best test for my suspicion of either external jugular, or and internal jugular clot. She does have the known port on the left side. There is no swelling of her trachea, she has otherwise normal vital signs, and she is not acutely bleeding. We will do a workup for her low-grade temperature, that does not qualify for fever yet. Chest x-ray, on speaking to Radiology, they recommended is both the left upper extremity ultrasound along with the soft tissue neck with contrast if the ultrasound was negative. Medical Records Medical records reviewed: Yes I reviewed the patient's medical records Lab Data Lab results reviewed: Yes I reviewed the patient's lab results Labs: Lab Results 09/08/24 09/08/24 Range/Units 16:31 17:30 WBC 12.72 H (4.50-11.00) K/uL RBC 3.24 L (4.00-5.20) m/uL Hgb 10.2 L (12.0-16.0) gm/dL Hct 30.6 L (33.0-51.0) % MCV 94 (80-100) fL MCH 32 (26-34) pg MCHC 33 (32-36) gm/dL RDW Coeff of Pravin 12.9 (11.5-15.5) % Plt Count 254 (140-440) K/uL Neut % (Auto) 75.9 H (42.0-72.0) % Lymph % (Auto) 14.3 L (20-44) % Fillmore % (Auto) 8.6 (0.0-11.0) % Eos % (Auto) 0.6 (0.0-7.0) % Baso % (Auto) 0.4 (0.0-3.0) % Neut # (Auto) 9.70 H (1.7-7.0) K/uL Lymph # (Auto) 1.80 (0.90-2.90) K/uL Fillmore # (Auto) 1.10 H (0.00-0.90) K/UL Eos # (Auto) 0.10 (0.00-0.50) K/uL Baso # (Auto) 0.10 (0.00-0.30) K/uL Abs Immat Gran (auto) 0.00 (0.00-0.30) K/uL Imm/Tot Granulo (auto) 0.2 % INR 0.98 (0.91-1.10) APTT 27 (23-33) Seconds D-Dimer Quant (PE/DVT) < 0.27 (0.00-0.50) ug/ml Sodium 138 (135-149) mmol/L Potassium 3.9 (3.6-5.1) mmol/L Chloride 102 (96-114) mmol/L Carbon Dioxide 27 (20-32) mmol/L Anion Gap 9 (7-15) mEq/L BUN 11 (5-24) mg/dL Creatinine 0.5 (0.5-1.5) mg/dL Estimated Creat Clear 107.22 Estimated GFR 118 ml/min Glucose 111 (60-115) mg/dL Lactate 0.9 (0.5-1.9) mmol/L Calcium 9.5 (8.4-10.6) mg/dL C-Reactive Protein 3.8 H (0.5-1.0) mg/dL Urine Color Yellow (Yellow) Urine Appearance Clear (Clear) Urine pH 6.0 (5.0-8.5) Ur Specific Zirconia 1.015 (1.000-1.030) Urine Protein Negative (Negative) Urine Glucose (UA) Negative (Negative) Urine Ketones 1+ A (Negative) Urine Blood Trace-intact A (Negative) Urine Nitrite Negative (Negative) Urine Bilirubin Negative (Negative) Urine Urobilinogen 0.2 (0.2-1.0) Ur Leukocyte Esterase Negative (Negative) Urine RBC 0-2 (0-2) Urine WBC 0-2 (0-5) Ur Squamous Epith Cells None (None-Few) Urine Bacteria None (None) SARS-CoV-2 (PCR) Negative SARS-CoV-2 (Negative) Influenza Type A (PCR) Negative PCR FLU A (Negative) Influenza Type B (PCR) Negative PCR FLU B (Negative) RSV (PCR) Negative PCR RSV (Negative) Imaging Data Left upper extremity ultrasound: Radiologist's impression: [place] [address] Diagnostic Imaging Report Patient: Chelsie Calero MR#: [id number] : 1980 Acct:[id number] Loc: ED Service Date: 09/08/[address]: Ordering Physician: Romero Flores M.D. Date of Service: 09/08/24 Procedure(s): US venous UE LT Accession Number(s): [id number] cc: Yesenia Degroot M.D.; Romero Flores M.D.~ ADDENDUMINDICATION: Left neck swelling. TECHNIQUE: Ultrasound venous duplex left upper extremity. Compression venous exam was performed using neff-scale, color Doppler, and spectral Doppler imaging. COMPARISON: None. FINDINGS: The left internal jugular vein is noncompressible with thrombus visualized on grayscale imaging. The left innominate, subclavian, and axillary veins are patent with normal waveforms. The brachial, basilic, and cephalic veins are fully compressible. The right internal jugular vein is patent with normal waveforms. IMPRESSION: Deep venous thrombosis in the left internal jugular vein. Dictated by Tomi Williamson MD @ 09/08/2024 5:33:21 PM ----- ADDENDUM ----- Findings conveyed to Dr. Flores on 09/08/2024 at 05:35 PM. Dictated by Tomi Williamson MD @ Sep 08 2024 5:44PM (Electronically Signed) For Patients: As a result of the Cures Act, medical imaging exams and procedure reports are released immediately into your electronic medical record. You may view this report before your referring provider. If you have questions, please contact your health care provider. INDICATION: Left neck swelling. TECHNIQUE: Ultrasound venous duplex left upper extremity. Compression venous exam was performed using neff-scale, color Doppler, and spectral Doppler imaging. COMPARISON: None. FINDINGS: The left internal jugular vein is noncompressible with thrombus visualized on grayscale imaging. The left innominate, subclavian, and axillary veins are patent with normal waveforms. The brachial, basilic, and cephalic veins are fully compressible. The right internal jugular vein is patent with normal waveforms. IMPRESSION: Deep venous thrombosis in the left internal jugular vein. Dictated by Tomi Williamson MD @ 09/08/2024 5:33:21 PM (Electronically Signed)[place] [address] Diagnostic Imaging Report Patient: Chelsie Calero MR#: [id number] : 1980 Acct:[id number] Loc: ED Service Date: 09/08/[address]: Ordering Physician: Romero Flores M.D. Date of Service: 09/08/24 Procedure(s): XR chest 2V Accession Number(s): [id number] cc: Yesenia Degroot M.D.; Romero Flores M.D.~ For Patients: As a result of the Cures Act, medical imaging exams and procedure reports are released immediately into your electronic medical record. You may view this report before your referring provider. If you have questions, please contact your health care provider. INDICATION: Fever, post surgical TECHNIQUE: Chest radiograph 2 views COMPARISON: 02/28/2024 FINDINGS: The sensitivity and specificity of the exam are moderately limited by the patient`s inability to lift the arms. Mediastinum: The mediastinum is normal in appearance. The heart silhouette is normal in size and morphology. Surgical drains are seen over the anterior chest tubes bilaterally. A left Port-A-Cath is present without interval change. Lung: Both lungs are unremarkable in appearance. No sign of pleural effusion seen. No pneumothorax is identified. Bone and Soft tissue: Trace levoscoliosis of the upper thoracic spine is noted. IMPRESSION: 1. No acute cardiopulmonary disease is seen. Dictated by Girma Wetzel MD @ 09/08/2024 5:39:18 PM Dictated by: Girma Wetzel MD @ 09/08/2024 17:39:22 (Electronically Signed) ECG Data Attestation: I personally reviewed and interpreted this ECG as follows: Prior ECG tracings: not available for review Interpretation: EKG shows normal sinus rhythm with a ventricular rate [address] wave abnormality noted. QRS is 74 QT 366 and QTC 430 Impression: Normal sinus rhythm with occasional PVCs. Nonspecific ST wave flattening noted laterally. Discharge Plan Discharge Clinical Impression: Acute internal jugular vein thrombosis Patient Disposition: Admitted As Observation Condition: Stable Activity Level: Light activity Discharge Diet: Regular
[2024-09-08 17:43] LABS: Lactate* 0.9 mmol/L (0.5-1.9)
[2024-09-08 17:44] LABS: Hematocrit 30.6 % (33.0-51.0); Hemoglobin* 10.2 gm/dL (12.0-16.0); Immature Granulocytes Pct Auto 0.2 %; Mean Corpuscular HGB Conc 33 gm/dL (32-36); Mean Corpuscular Hemoglobin 32 pg (26-34); Mean Corpuscular Volume 94 fL (80-100); RDW Coefficient of Variation % 12.9 % (11.5-15.5); Red Blood Count 3.24 m/uL (4.00-5.20); White Blood Count* 12.72 K/uL (4.50-11.00)
[2024-09-08 18:17] LABS: INR 0.98 (0.91-1.10); Immature Granulocytes Abs Auto 0.00 K/uL (0.00-0.30); Lymphocytes Absolute Auto 1.80 K/uL (0.90-2.90); Prothrombin Time 13.8 Seconds; Slide Review Reflex No
[2024-09-08 18:23] LABS: Chloride* 102 mmol/L (96-114); Potassium* 3.9 mmol/L (3.6-5.1); Sodium* 138 mmol/L (135-149)
[2024-09-08 18:25] LABS: D Dimer Quantitative* < 0.27 ug/ml (0.00-0.50); PCR FLU A Negative PCR FLU A (Negative); PCR FLU B Negative PCR FLU B (Negative); PCR RSV Negative PCR RSV (Negative); SARS PCR* Negative SARS-CoV-2 (Negative)
[2024-09-08 18:26] LABS: Anion Gap 9 mEq/L (7-15); Blood Urea Nitrogen* 11 mg/dL (5-24); Calcium* 9.5 mg/dL (8.4-10.6); Carbon Dioxide* 27 mmol/L (20-32); Creatinine* 0.5 mg/dL (0.5-1.5); Est. Creatinine Clearance* 107.22; Estimated Glomerular Filt Rate 118 ml/min; Glucose* 111 mg/dL (60-115)
[2024-09-08 18:29] VITALS: BP 135/83; PULSE 86; RESP 18; O2SAT 97
--- NOTE | 2024-09-08 18:54 | P.IMHP_ITS ---
Assessment and Plan Assessment and plan (1) Acute internal jugular vein thrombosis: Problem comment: Ultrasound shows deep venous thrombosis in the left internal jugular vein Known cancer, recent negative von Willebrand's test Heparin bolus given in ED followed by heparin drip per protocol Transition to DOAC x3 month Okay to gradually resume normal activities Outpatient follow-up with Hematology for further workup as necessary Status: Acute (2) Leukocytosis: Problem comment: WBC 12.72 (previously 15.05) without significant neutrophils. Afebrile. UA rather unremarkable. Triple swab negative. CXR without acute findings. Likely reactionary BC x2 pending. Continue to monitor ED provider discussed with General surgery, defer antibiotics for now Status: Acute (3) S/P bilateral mastectomy: Problem comment: Left breast triple negative invasive ductal carcinoma status post neoadjuvant chemotherapy Bilateral mastectomy and left axillary sentinel lymph node biopsy, Dr. Tesfaye, 09/05/2024 Per ED provider, Dr. Tesfaye plans to remove port tomorrow 09/09 Status: Acute (4) Post-operative hemorrhage: Problem comment: Right breast hematoma status post mastectomy Status post right breast hematoma evacuation 09/05/2024, Dr. Tesfaye Hemoglobin 10.2 (most recent 10.0-10.7). Monitor Status: Acute Plan IV heparin overnight, transition to oral anticoagulation General surgery to remove port tomorrow Likely home 1-2 days Total Time Spent Total Time Spent: Today I spent 75 minutes seeing the patient, reviewing Expanse and EPIC notes/diagnostics, discussing the care plan with our care time that includes social work, PT/OT, pharmacy, RT, penitentiary and documenting my impressions and plan in the medical record. Hospitalist- H&P: HPI History of Present Illness Date Seen: 09/08/24 Chief complaint: Fever, pain in neck area Narrative: Chelsie Calero is a 44 year old female past medical history significant for Left breast triple negative invasive ductal carcinoma status post neoadjuvant chemotherapy, status post bilateral mastectomy 09/05/2024, status post right breast hematoma evacuation 09/05/2024, family history von Willebrand's disease (her test was negative) is admitted to the medical floor from the ED for IV heparin management of acute left internal jugular vein DVT. Patient is seen with at bedside. Reports pain/discomfort along the left lateral neck for several days, worsening today. Has noticed swelling as well. [place] feverish without documented fever at home. Denies headache or dizziness. Denies chest pain, dyspnea, shortness of breath. No recent cough or cold symptoms. Denies abdominal pain, nausea, vomiting. No change in bowels or urination. Drains are in place status post mastectomy with sanguinous drainage. Postoperative pain has been appropriately managed with [place]. Review of Systems Narrative: REVIEW OF SYSTEMS: Complete review of systems performed and negative unless otherwise stated in HPI or below. Medical Decision Making Medical Decision Making Code Status: Full code Has patient completed a Health Care Directive: No PFSH PFSH Medical History Family history of von Willebrand disease ?Z83.2 - Family history of diseases of the blood and blood-forming organs and certain disorders involving the immune mechanism (ICD-10) Surgical History H/O wisdom tooth extraction ?K08.409 - Partial loss of teeth, unspecified cause, unspecified class (ICD- 10) H/O abdominoplasty ?Z98.890 - Other specified postprocedural states (ICD-10) H/O section ?Z98.891 - History of uterine scar from previous surgery (ICD-10) Family History Mother Bleeding disorder Social History Narrative: non-smoker. 1 glass of wine daily. 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 Takes care of parents - mother with Alzheimer's. Has two teenage children. What is your current living situation?: I presently have a place to live Problems where you live: no known problems Problems where you live details: none In the past 12 months, utilities in danger of being shut off: no In past 12 months, lack of transportation kept you from medical appts, meetings, work, or getting things needed for daily living: no In the past 12 mos, have been you worried that your food would run out before you had money to buy more?: never true In the past 12 mos, the food you bought just didn't last and you didn't have money to buy more?: never true Highest level of school completed/degree received: Bachelor's degree Smoking Status: Never smoker Do you use any of these nicotine containing products: None Second hand tobacco smoke exposure: No How often do you have a drink containing alcohol: monthly or less Alcohol type: wine and hard liquor How many standard drinks containing alcohol do you have on a typical day: 1 or 2 How often do you have six or more drinks on one occasion: Never AUDIT-C Alcohol total score: 1 Non-prescribed substance use: denies use Caffeine: Yes How often does anyone, including family, friends and others, physically hurt you : never How often does anyone, including family, friends and others, insult or talk down to you: never How often does anyone, including family, friends and others, threaten you with harm: never How often does anyone, including family, friends and others, scream or curse at you: never Are you using contraception or practicing any form of control: No service: No Meds Home Medications and Allergies Home Medications ?Medication ?Instructions ?Recorded ?Confirmed ?Type cholecalciferol (vitamin D3) 25 25 mcg PO QDAY 4 09/08/24 History mcg (1,000 unit) capsule hydrocodone 5 mg-acetaminophen 325 1 - 2 tab PO Q6H [place] Pain #25 tabs 09/05/24 09/08/24 Rx mg tablet Allergies Allergy/AdvReac Type Severity Reaction Status Date / Time No Known Drug Allergies Allergy Verified 09/05/24 07:10 Exam Narrative: Exam Narrative: PHYSICAL EXAM General: Very pleasant, conversant, NAD HEENT: Normocephalic, atraumatic, sclera white, EOMI, oral mucosa moist. Left anterior neck with mild swelling, minimal tenderness, no lymphadenopathy. Cardiovascular: RRR, S1S2. No pitting edema Pulmonary: CTA bilaterally without rhonchi, rales, expiratory wheezes. No dyspnea on room air Neurological: Alert, answering questions appropriately, cranial nerves intact, no focal findings Extremities: No gross joint deformity or swelling. AROMI. Neurovascularly intact Skin: Warm, dry. STEVE drains in place with minimal sanguinous drainage Const: Vital Signs, click to edit/add: Vital Signs - 24 hr 09/08/24 15:58 09/08/24 18:29 Temperature 98.0 F Pulse Rate [Pulse Oximeter] 91 86 Respiratory Rate 16 18 Blood Pressure [Ri ght Leg] 153/101 H 135/83 Pulse Oximetry 98 97 Oxygen Delivery Me thod Room Air Room Air Hospitalist - H&P: Result Labs Labs: Short CBC 09/08/24 Range/Units 17:30 WBC 12.72 H (4.50-11.00) K/uL Hgb 10.2 L (12.0-16.0) gm/dL Hct 30.6 L (33.0-51.0) % Plt Count 254 (140-440) K/uL BMP 09/08/24 17:30 Sodium 138 Potassium 3.9 Chloride 102 Carbon Dioxide 27 BUN 11 Creatinine 0.5 Glucose 111 Calcium 9.5 Urine 09/08/24 Range/Units 16:31 Urine Color Yellow (Yellow) Urine Appearance Clear (Clear) Urine pH 6.0 (5.0-8.5) Ur Specific [place] 1.015 (1.000-1.030) Urine Protein Negative (Negative) Urine Glucose (UA) Negative (Negative) Imaging Chest x-ray: Attestation: I have reviewed the pertinent imaging results. Radiologist's impression: FINDINGS: The sensitivity and specificity of the exam are moderately limited by the patient`s inability to lift the arms. Mediastinum: The mediastinum is normal in appearance. The heart silhouette is normal in size and morphology. Surgical drains are seen over the anterior chest tubes bilaterally. A left Port-A-Cath is present without interval change. Lung: Both lungs are unremarkable in appearance. No sign of pleural effusion seen. No pneumothorax is identified. Bone and Soft tissue: Trace levoscoliosis of the upper thoracic spine is noted. IMPRESSION: 1. No acute cardiopulmonary disease is seen. Venous duplex: Attestation: I have reviewed the pertinent imaging results. Radiologist's impression: The left internal jugular vein is noncompressible with thrombus visualized on grayscale imaging. The left innominate, subclavian, and axillary veins are patent with normal waveforms. The brachial, basilic, and cephalic veins are fully compressible. The right internal jugular vein is patent with normal waveforms. IMPRESSION: Deep venous thrombosis in the left internal jugular vein. Dictated by Tomi Williamson MD @ 09/08/2024 5:33:21 PM ----- ADDENDUM ----- Findings conveyed to Dr. Flores on 09/08/2024 at 05:35 PM. Dictated by Tomi Williamson MD @ Sep 08 2024 5:44PM (Electronically Signed) For Patients: As a result of the Cures Act, medical imaging exams and procedure reports are released immediately into your electronic medical record. You may view this report before your referring provider. If you have questions, please contact your health care provider. INDICATION: Left neck swelling. TECHNIQUE: Ultrasound venous duplex left upper extremity. Compression venous exam was performed using neff-scale, color Doppler, and spectral Doppler imaging. COMPARISON: None. FINDINGS: The left internal jugular vein is noncompressible with thrombus visualized on grayscale imaging. The left innominate, subclavian, and axillary veins are patent with normal waveforms. The brachial, basilic, and cephalic veins are fully compressible. The right internal jugular vein is patent with normal waveforms.
[2024-09-08] MEDS: HEPARIN 5,000 UNIT/0.5 ML INJ 5100 UNIT IVP (19:04)
[2024-09-08] MEDS: HEPARIN 25,000 UNIT/500 ML BAG 23 UNIT IV (19:06)
[2024-09-08 20:22] VITALS: BP 138/87; PULSE 90; RESP 18; TEMP 37.1; O2SAT 97
[2024-09-08] MEDS: ACETAMINOPHEN 325 MG TABLET 1000 MG PO (21:10)
[2024-09-08 23:00] VITALS: BP 114/76; PULSE 92; RESP 18; TEMP 37; O2SAT 94
[2024-09-09] VITALS (7 sets, daily range): BP systolic 110–120; BP diastolic 75–86; PULSE 87–106; RESP 14–16; TEMP 36.4–36.9; O2SAT 95–96
[2024-09-09] MEDS: ACETAMINOPHEN 500 MG TABLET 1000 MG PO ×4 (03:12→23:35)
--- NOTE | 2024-09-09 06:09 | PC.NURSE ---
The patient is pleasant with cares throughout the night. L neck swelling is noted and the patient reports L neck discomfort as well. VSS on RA. Post op bilateral mastectomy last Wednesday. The patient rates her pain in the mild range, STEVE to bilateral chest, EUGENIA wrap is on. Heparin gtt protocol, running @ 1000 u/hr per last ptt draw, redraw @ 0800. Up independently, was up intermittently throughout the night. NPO @ 0000 for port removal today by Dr. Tesfaye. Refused TEDS/ SCDS. Ellie FORTUNE BSN
[2024-09-09 07:22] LABS: Hematocrit 28.4 % (33.0-51.0); Hemoglobin* 9.5 gm/dL (12.0-16.0); Mean Corpuscular HGB Conc 34 gm/dL (32-36); Mean Corpuscular Hemoglobin 32 pg (26-34); Mean Corpuscular Volume 94 fL (80-100); Red Blood Count 3.02 m/uL (4.00-5.20); White Blood Count* 10.20 K/uL (4.50-11.00)
[2024-09-09 07:32] LABS: INR 1.04 (0.91-1.10); Prothrombin Time 14.4 Seconds; Slide Review Reflex No
[2024-09-09 07:35] LABS: Chloride* 106 mmol/L (96-114)
[2024-09-09 07:36] LABS: Potassium* 4.2 mmol/L (3.6-5.1); Sodium* 138 mmol/L (135-149)
[2024-09-09 07:38] LABS: Blood Urea Nitrogen* 9 mg/dL (5-24); Creatinine* 0.5 mg/dL (0.5-1.5); Est. Creatinine Clearance* 107.22; Estimated Glomerular Filt Rate 118 ml/min
[2024-09-09 07:39] LABS: Anion Gap 5 mEq/L (7-15); Calcium* 9.6 mg/dL (8.4-10.6); Carbon Dioxide* 27 mmol/L (20-32); Glucose* 110 mg/dL (60-115)
[2024-09-09] MEDS: SODIUM CHLORIDE 0.9 % (FLUSH) 10 ML SYRINGE 5 ML IVF (10:16)
--- NOTE | 2024-09-09 11:40 | P.GSCN_ITS ---
History of Present Illness Consult details Date Seen: 09/09/24 Consult date: 09/09/24 Narrative: Chelsie is a 44-year-old female who is postop day 4 from bilateral mastectomy and left axillary sentinel lymph node biopsy for left-sided invasive ductal carcinoma, triple negative, status post neoadjuvant chemotherapy, who unfortunately was taken back to the operating room on postop day 0 for hematoma of the right chest incision, who developed left-sided neck pain and swelling. She then developed a low-grade fever. She was directed to the ER and underwent ultrasound which did show a clot in her internal jugular vein on the left where her port is. She was admitted to the hospital and started on a heparin drip. She has some discomfort still in her left neck but has no ongoing fevers. She is taking Tylenol for pain. She has been ambulating. Drain output has been about 15 per 24 hours and about 60 per 24 hours on the right at home. [facility] Medical History Family history of von Willebrand disease ?Z83.2 - Family history of diseases of the blood and blood-forming organs and certain disorders involving the immune mechanism (ICD-10) Surgical History H/O wisdom tooth extraction ?K08.409 - Partial loss of teeth, unspecified cause, unspecified class (ICD- 10) H/O abdominoplasty ?Z98.890 - Other specified postprocedural states (ICD-10) H/O section ?Z98.891 - History of uterine scar from previous surgery (ICD-10) Family History Mother Bleeding disorder Social History Narrative: non-smoker. 1 glass of wine daily. 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 Takes care of parents - mother with Alzheimer's. Has two teenage children. What is your current living situation?: I presently have a place to live Problems where you live: no known problems Problems where you live details: none known In the past 12 months, utilities in danger of being shut off: no In past 12 months, lack of transportation kept you from medical appts, meetings, work, or getting things needed for daily living: no In the past 12 mos, have been you worried that your food would run out before you had money to buy more?: never true In the past 12 mos, the food you bought just didn't last and you didn't have money to buy more?: never true Highest level of school completed/degree received: Bachelor's degree Smoking Status: Never smoker Do you use any of these nicotine containing products: None Second hand tobacco smoke exposure: No How often do you have a drink containing alcohol: monthly or less Alcohol type: wine and hard liquor How many standard drinks containing alcohol do you have on a typical day: 1 or 2 How often do you have six or more drinks on one occasion: Never AUDIT-C Alcohol total score: 1 Non-prescribed substance use: denies use Caffeine: No How often does anyone, including family, friends and others, physically hurt you : never How often does anyone, including family, friends and others, insult or talk down to you: never How often does anyone, including family, friends and others, threaten you with harm: never How often does anyone, including family, friends and others, scream or curse at you: never Are you using contraception or practicing any form of control: No service: No Meds Home Medications and Allergies Home Medications ?Medication ?Instructions ?Recorded ?Confirmed ?Type cholecalciferol (vitamin D3) 25 25 mcg PO QDAY 4 09/08/24 History mcg (1,000 unit) capsule hydrocodone 5 mg-acetaminophen 325 1 - 2 tab PO Q6H [place] Pain #25 tabs 09/05/24 09/08/24 Rx mg tablet apixaban 5 mg tablet (Eliquis) 10 mg (2 x 5 mg) PO BID #60 tabs 09/09/24 Rx Allergies Allergy/AdvReac Type Severity Reaction Status Date / Time No Known Drug Allergies Allergy Verified 09/05/24 07:10 Exam Narrative: Exam Narrative: General: No acute distress HEENT: Slight fullness in the left neck as opposed to the right. No erythema. CV: Regular rate and rhythm Respiratory: Breathing nonlabored on room air Chest: Incisions without erythema. There is scattered faint ecchymosis changes on her flaps bilaterally. More significant ecchymosis noted on her right upper outer quadrant in the area of her postoperative bleed. Drain output 40 mL since admission Const: Vital Signs, click to edit/add: Vital Signs - 24 hr 09/08/24 15:58 09/08/24 18:29 09/08/24 20:22 Temperature 98.0 F 98.7 F Pulse Rate Pulse Rate [Pulse Oximeter] 91 86 90 Respiratory Rate 16 18 18 Blood Pressure [Ri ght Leg] 153/101 H 135/83 Blood Pressure [r arm] 138/87 Pulse Oximetry 98 97 97 Oxygen Delivery Wy thod Room Air Room Air Room Air 09/08/24 23:00 09/08/24 23:00 09/09/24 03:00 Temperature 98.6 F 98.0 F Pulse Rate 92 Pulse Rate [Pulse Oximeter] 92 87 Respiratory Rate 18 16 Blood Pressure [Ri ght Leg] Blood Pressure [r arm] 114/76 119/81 Pulse Oximetry 94 95 [facility] 09/09/24 07:00 09/09/24 07:00 Temperature 97.6 F Pulse Rate 90 Pulse Rate [Pulse Oximeter] 88 Respiratory Rate 14 Blood Pressure [Ri ght Leg] Blood Pressure [r arm] 118/78 Pulse Oximetry 95 Oxygen Delivery Wy thod Room Air Results Labs Labs: Abnormal lab results 09/08/24 09/08/24 09/09/24 Range/Units 16:31 17:30 01:00 WBC 12.72 H (4.50-11.00) K/uL RBC 3.24 L (4.00-5.20) m/uL Hgb 10.2 L (12.0-16.0) gm/dL Hct 30.6 L (33.0-51.0) % Neut % (Auto) 75.9 H (42.0-72.0) % Lymph % (Auto) 14.3 L (20-44) % Neut # (Auto) 9.70 H (1.7-7.0) K/uL [place] # (Auto) 1.10 H (0.00-0.90) K/UL APTT 90 H (23-33) Seconds Anion Gap (7-15) mEq/L C-Reactive Protein 3.8 H (0.5-1.0) mg/dL Urine Ketones 1+ A (Negative) Urine Blood Trace-intact A (Negative) 09/09/24 Range/Units 07:01 WBC (4.50-11.00) K/uL RBC 3.02 L (4.00-5.20) m/uL Hgb 9.5 L (12.0-16.0) gm/dL Hct 28.4 L (33.0-51.0) % Neut % (Auto) (42.0-72.0) % Lymph % (Auto) (20-44) % Neut # (Auto) (1.7-7.0) K/uL [place] # (Auto) (0.00-0.90) K/UL APTT 108 H* (23-33) Seconds Anion Gap 5 L (7-15) mEq/L C-Reactive Protein (0.5-1.0) mg/dL Urine Ketones (Negative) Urine Blood (Negative) Diabetes panel 09/08/24 09/09/24 Range/Units 17:30 07:01 Sodium 138 138 (135-149) mmol/L Potassium 3.9 4.2 (3.6-5.1) mmol/L Chloride 102 106 (96-114) mmol/L Carbon Dioxide 27 27 (20-32) mmol/L BUN 11 9 (5-24) mg/dL Creatinine 0.5 0.5 (0.5-1.5) mg/dL Glucose 111 110 (60-115) mg/dL Calcium 9.5 9.6 (8.4-10.6) mg/dL Calcium panel 09/08/24 09/09/24 Range/Units 17:30 07:01 Calcium 9.5 9.6 (8.4-10.6) mg/dL Pituitary panel 09/08/24 09/09/24 Range/Units 17:30 07:01 Sodium 138 138 (135-149) mmol/L Potassium 3.9 4.2 (3.6-5.1) mmol/L Chloride 102 106 (96-114) mmol/L Carbon Dioxide 27 27 (20-32) mmol/L BUN 11 9 (5-24) mg/dL Creatinine 0.5 0.5 (0.5-1.5) mg/dL Glucose 111 110 (60-115) mg/dL Calcium 9.5 9.6 (8.4-10.6) mg/dL Adrenal panel 09/08/24 09/09/24 Range/Units 17:30 07:01 Sodium 138 138 (135-149) mmol/L Potassium 3.9 4.2 (3.6-5.1) mmol/L Chloride 102 106 (96-114) mmol/L Carbon Dioxide 27 27 (20-32) mmol/L BUN 11 9 (5-24) mg/dL Creatinine 0.5 0.5 (0.5-1.5) mg/dL Glucose 111 110 (60-115) mg/dL Calcium 9.5 9.6 (8.4-10.6) mg/dL All other labs normal. Imaging Additional studies: Ultrasound leck and left upper extremity INDICATION: Left neck swelling. TECHNIQUE: Ultrasound venous duplex left upper extremity. Compression venous exam was performed using neff-scale, color Doppler, and spectral Doppler imaging. COMPARISON: None. FINDINGS: The left internal jugular vein is noncompressible with thrombus visualized on grayscale imaging. The left innominate, subclavian, and axillary veins are patent with normal waveforms. The brachial, basilic, and cephalic veins are fully compressible. The right internal jugular vein is patent with normal waveforms. IMPRESSION: Deep venous thrombosis in the left internal jugular vein. Dictated by Tomi Williamson MD @ 09/08/2024 5:33:21 PM Progress Note:A&P Assessment and plan (1) Leukocytosis: Status: Acute (2) Acute internal jugular vein thrombosis: Status: Acute (3) S/P bilateral mastectomy: Status: Acute (4) Triple negative breast cancer: Status: Acute Plan The patient is a 44-year-old female with a left internal jugular vein catheter associated thrombosis. She was started on heparin overnight. Hemoglobin is slightly down but roughly stable overall. Heparin was held for 2 hours this morning and her port was removed without incident. I did culture the tip since she had low-grade fevers though I suspect this is related to the thrombosis. -resume heparin drip in 2 hours. -head of bed elevated -remove pressure dressing over port site tomorrow and then okay to shower. -as long as hemoglobin stable, transition to oral anticoagulation and discharge tomorrow. -discussed with plastic surgeon. Surgery for breast reconstruction is planned on the . As long as clot is resolving and limited to the internal jugular vein, we may be able to continue this as planned versus postponing. Discussed with hematology surveillance ultrasound to reassess the clot possibly at the end of next week -she is following up with Dr. Santos week after next as well, -perioperatively will plan on Lovenox injections which will minimize bleeding risk at the time of reconstruction surgery and minimize time off of anticoagulation. -given patient's anemia and possible plan for repeat surgery in 2 weeks, will give iron supplementation. Patient amenable to coming for outpatient IV infusions.
--- NOTE | 2024-09-09 11:52 | P.PCN_ITS ---
Procedure Note Date Seen: 09/09/[address] [facility] bill your pro fee for this procedure?: Yes Pre-op diagnosis: Left-sided internal jugular catheter associated thrombus Post-op diagnosis: same Procedure: Left IJ port removal Procedure Description: Procedure: Left IJ Port-A-Cath removal Description: After obtaining informed consent, the area was prepped and draped sterilely. The patient's heparin drip was held for 2-1/2 hours prior to the procedure. 1% lidocaine with epinephrine was injected into the skin and subcutaneous tissue overlying the port. The prior incision was incised with a scalpel and dissection was taken down sharply until the port was encountered. The capsule was then incised and the hub was identified. The catheter was then delivered from its tract intact. Gentle pressure was placed on the right IJ insertion site. The sutures were then identified and removed. The port was dissected free from its capsule and delivered through the incision. The tip was sent for culture. Hemostasis appeared excellent. The wound was closed in layers with 3-0 Vicryl dermal and 4-0 Monocryl running subcuticular suture. Steri-Strips were applied. The patient tolerated the procedure well. Anesthesia: local Condition: stable
[2024-09-09] MEDS: IRON SUCROSE COMPLEX 200 MG in 0.9 % SODIUM CHLORIDE 100 ml 100 ML 440 MG IVPB (13:33)
--- NOTE | 2024-09-09 13:35 | P.IMPN_ITS ---
Assessment and Plan Assessment and plan (1) Leukocytosis: Problem comment: - WBC 12.72 (previously 15.05) without significant neutrophils, afebrile, UA unremarkable, triple swab negative, CXR without acute findings - improved to 10 on 09/09/24 - BC x2 pending, NGTD, no antibiotics at this time Status: Acute (2) Acute internal jugular vein thrombosis: Problem comment: - Ultrasound 09/08: deep venous thrombosis in the left internal jugular vein - Known breast cancer, recent negative von Willebrand's test - on heparin gtt - on 09/10, will transition to DOAC x3 month, outpatient Hematology f/u Status: Acute (3) S/P bilateral mastectomy: Problem comment: - 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 Tesfaye, 09/05/2024 Status: Acute (4) Triple negative breast cancer: Status: Acute Plan - port removed 09/09 - continue heparin gtt until 09/10, then transition to DOAC - likely home tomorrow if stable and blood cultures remain negative - update bedside, questions answered Subjective Date Seen: 09/09/24 Interval history: Chelsie was admitted to the hospital on 09/08 for a DVT in her L IJ. She has a history of triple negative invasive ductal carcinoma of the L breast, s/p neoadjuvant chemotherapy and B mastectomy 09/05/24 (with postoperative hematoma evacuation 09/05/24). Presented to the ER 09/08 with L neck stiffness and an elevated temperature. In the ER, WBC 12 with PMN predominance, imaging + for L IJ DVT. Blood cultures obtained, currently NGTD. IV heparin gtt initiated upon arrival to the floor. This morning, Chelsie has no concerns for hospitalist team. Dr. Tesfaye of General Surgery is taking out Chelsie's L IJ Port a cath today. Exam Narrative: Exam Narrative: GEN: Alert and oriented, nontoxic HEENT: EOMIs bilaterally, no scleral icterus, mild left-sided neck fullness, full range of motion with mild discomfort when looking to the left CV: RRR, No concerning murmurs R: LCTA bilaterally without concerning wheezing Ext: normal peripheral pulses BUE Skin: No concerning skin lesions or rashes on exposed skin Neuro: Nonfocal Psych: Appropriate Const: Vital Signs, click to edit/add: Vital Signs - 24 hr 09/08/24 15:58 09/08/24 18:29 09/08/24 20:22 Temperature 98.0 F 98.7 F Pulse Rate Pulse Rate [Pulse Oximeter] 91 86 90 Respiratory Rate 16 18 18 Blood Pressure [Ri ght Leg] 153/101 H 135/83 Blood Pressure [r arm] 138/87 Pulse Oximetry 98 97 [facility] 09/08/24 23:00 09/08/24 23:00 09/09/24 03:00 Temperature 98.6 F 98.0 F Pulse Rate 92 Pulse Rate [Pulse Oximeter] 92 87 Respiratory Rate 18 16 Blood Pressure [Ri ght Leg] Blood Pressure [r arm] 114/76 119/81 Pulse Oximetry 94 95 [facility] 09/09/24 07:00 09/09/24 07:00 09/09/24 11:00 Temperature 97.6 F 97.7 F Pulse Rate 90 Pulse Rate [Pulse Oximeter] 88 87 Respiratory Rate 14 14 Blood Pressure [Ri ght Leg] Blood Pressure [r arm] 118/78 120/86 Pulse Oximetry 95 96 [facility] Labs Labs: Laboratory Results - last 24 hr 09/08/24 09/08/24 09/09/24 16:31 17:30 01:00 WBC 12.72 H RBC 3.24 L Hgb 10.2 L Hct 30.6 L MCV 94 MCH 32 MCHC 33 RDW Coeff of Pravin 12.9 Plt Count 254 Neut % (Auto) 75.9 H Lymph % (Auto) 14.3 L [place] % (Auto) 8.6 Eos % (Auto) 0.6 Baso % (Auto) 0.4 Neut # (Auto) 9.70 H Lymph # (Auto) 1.80 [place] # (Auto) 1.10 H Eos # (Auto) 0.10 Baso # (Auto) 0.10 Abs Immat Gran (auto) 0.00 Imm/Tot Granulo (auto) 0.2 INR 0.98 APTT 27 90 H D-Dimer Quant (PE/DVT) < 0.27 Sodium 138 Potassium 3.9 Chloride 102 Carbon Dioxide 27 Anion Gap 9 BUN 11 Creatinine 0.5 Estimated Creat Clear 107.22 Estimated GFR 118 Glucose 111 Lactate 0.9 Calcium 9.5 Troponin I < 0.01 C-Reactive Protein 3.8 H Urine Color Yellow Urine Appearance Clear Urine pH 6.0 Ur Specific [place] 1.015 Urine Protein Negative Urine Glucose (UA) Negative Urine Ketones 1+ A Urine Blood Trace-intact A Urine Nitrite Negative Urine Bilirubin Negative Urine Urobilinogen 0.2 Ur Leukocyte Esterase Negative Urine RBC 0-2 Urine WBC 0-2 Ur Squamous Epith Cells None Urine Bacteria None SARS-CoV-2 (PCR) Negative SARS-CoV-2 Influenza Type A (PCR) Negative PCR FLU A Influenza Type B (PCR) Negative PCR FLU B RSV (PCR) Negative PCR RSV 09/09/24 07:01 WBC 10.20 RBC 3.02 L Hgb 9.5 L Hct 28.4 L MCV 94 MCH 32 MCHC 34 RDW Coeff of Pravin Plt Count 247 Neut % (Auto) Lymph % (Auto) [place] % (Auto) Eos % (Auto) Baso % (Auto) Neut # (Auto) Lymph # (Auto) [place] # (Auto) Eos # (Auto) Baso # (Auto) Abs Immat Gran (auto) Imm/Tot Granulo (auto) INR 1.04 APTT 108 H* D-Dimer Quant (PE/DVT) Sodium 138 Potassium 4.2 Chloride 106 Carbon Dioxide 27 Anion Gap 5 L BUN 9 Creatinine 0.5 Estimated Creat Clear 107.22 Estimated GFR 118 Glucose 110 Lactate Calcium 9.6 Troponin I C-Reactive Protein Urine Color Urine Appearance Urine pH Ur Specific [place] Urine Protein Urine Glucose (UA) Urine Ketones Urine Blood Urine Nitrite Urine Bilirubin Urine Urobilinogen Ur Leukocyte Esterase Urine RBC Urine WBC Ur Squamous Epith Cells Urine Bacteria SARS-CoV-2 (PCR) Influenza Type A (PCR) Influenza Type B (PCR) RSV (PCR)
--- NOTE | 2024-09-09 18:42 | PC.NURSE ---
[id number]: Pt. is pleasant, AOX4, VSS. Afebrile. Port removed bedside by MD with assist from RN. Bilateral chest dressing change, dressing CDI. Moderate bruising bilaterally with no redness or swelling. STEVE drains stripped and emptied. Consistent output from both drains < 30cc. Port removal site dressing CDI. Heparin started at 1400. Pt. up to BR independently. Moves well with IV pole. bedside midday. Pt. has been constipated, bowel sounds active. One small BM recorded. Requests Miralax at bedtime.
--- NOTE | 2024-09-09 23:14 | PC.NURSE ---
Patient alert and orientedx4. Heparin Gtt running at 1000units/hr. Surgical site dressing clean dry and intact. Able to communicate need. NSR on tele. Vital signs stable this shift.
[2024-09-10 03:00] VITALS: BP 115/69; PULSE 83; RESP 16; TEMP 36.3; O2SAT 96
[2024-09-10] MEDS: HEPARIN 25,000 UNIT/500 ML BAG 16 UNIT IV (04:02)
--- NOTE | 2024-09-10 05:42 | PC.NURSE ---
19-: pleasant and cooperative. indep. VSS. heparin drip per protocol, next PTT draw @ 10am. Dressings CDI, EUGENIA wrap around chest.
[2024-09-10] MEDS: ACETAMINOPHEN 500 MG TABLET 1000 MG PO (06:04)
[2024-09-10 07:00] VITALS: BP 112/75; PULSE 85; PULSE 86; RESP 16; TEMP 36.4; O2SAT 94
[2024-09-10 07:48] LABS: Hematocrit 30.0 % (33.0-51.0); Hemoglobin* 9.9 gm/dL (12.0-16.0); Immature Granulocytes Abs Auto 0.02 K/uL (0.00-0.30); Immature Granulocytes Pct Auto 0.2 %; Mean Corpuscular HGB Conc 33 gm/dL (32-36); Mean Corpuscular Hemoglobin 31 pg (26-34); Mean Corpuscular Volume 94 fL (80-100); RDW Coefficient of Variation % 12.9 % (11.5-15.5); Red Blood Count 3.20 m/uL (4.00-5.20); White Blood Count* 8.86 K/uL (4.50-11.00)
[2024-09-10 07:49] LABS: Lymphocytes Absolute Auto 1.50 K/uL (0.90-2.90); Slide Review Reflex No
[2024-09-10 08:02] LABS: Chloride* 104 mmol/L (96-114); Potassium* 3.8 mmol/L (3.6-5.1); Sodium* 136 mmol/L (135-149)
[2024-09-10 08:05] LABS: Anion Gap 4 mEq/L (7-15); Blood Urea Nitrogen* 9 mg/dL (5-24); Carbon Dioxide* 28 mmol/L (20-32); Creatinine* 0.6 mg/dL (0.5-1.5); Est. Creatinine Clearance* 89.35; Estimated Glomerular Filt Rate 113 ml/min
[2024-09-10 08:06] LABS: Calcium* 9.7 mg/dL (8.4-10.6); Glucose* 116 mg/dL (60-115)
[2024-09-10] MEDS: APIXABAN 5 MG TABLET 10 MG PO (08:08)
[2024-09-10] MEDS: SODIUM CHLORIDE 0.9 % (FLUSH) 10 ML SYRINGE 5 ML IVF (08:08)
--- NOTE | 2024-09-10 08:33 | PM.DS1 ---
DS: Providers Provider Date Seen: 09/10/24 Date of admission: 09/09/24 17:15 Primary care physician: Yesenia Degroot MD Admitting Clinician: Georgette Fortune MD Consults: General Surgery (Dr. Tesfaye) Attending Physician on discharge: Romina Garcia MD Date of Discharge: 09/10/24 DS: Diagnosis Discharge Diagnosis (1) Leukocytosis: Status: Acute Problem details: - WBC 12.72 (previously 15.05) without significant neutrophils, afebrile, UA unremarkable, triple swab negative, CXR without acute findings - improved to 10 on 09/09/24 --> 8.8 on discharge - BC x2 negative during stay, no antibiotics indicated during stay (2) Acute internal jugular vein thrombosis: Status: Acute Problem details: - Ultrasound 09/08: deep venous thrombosis in the left internal jugular vein - Known breast cancer, recent negative von Willebrand's test - L IJ Port removed by Dr. 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 Tesfaye, 09/05/2024 (4) Triple negative breast cancer: Status: Acute DS: Summary Hospital Course Hospital Course: Chelsie was admitted to the hospital on 09/08 for a new DVT in her L IJ. She has a history of triple negative invasive ductal carcinoma of the L breast, s/p neoadjuvant chemotherapy and B mastectomy 09/05/24 (with postoperative hematoma evacuation 09/05/24). Presented to the ER 09/08 with L neck stiffness and an elevated temperature. In the ER, WBC 12 with PMN predominance, imaging + for L IJ DVT. Blood cultures obtained, NGTD during stay. IV heparin gtt initiated upon arrival to the floor, then transitioned to oral Eliquis on 09/10. Her L IJ port was removed by Dr. Tesfaye of General Surgery on 09/10. Hemoglobin remained stable. Treating with IV Venofer upon d/c given recent postoperative hematoma and upcoming reconstruction. Stable and appropriate for d/c on 09/10/24 with close Oncology and General Surgery f/u. Status at Discharge Functional status at discharge: independent ambulation Time Spent with Patient Time attestation: Total time spent providing and/or coordinating discharge services: Time spent: Greater than 30 minutes Exam Narrative: Exam Narrative: GEN: Alert and oriented, nontoxic HEENT: EOMIs bilaterally, no scleral icterus, full range of motion of neck. Her bandage over area from left IJ port removal is clean and dry CV: RRR, No concerning murmurs R: LCTA bilaterally without concerning wheezing Ext: wwp, no concerning edema Skin: No concerning skin lesions or rashes on exposed skin Neuro: Nonfocal Psych: Appropriate Const: Vital Signs, click to edit/add: Vital Signs - 24 hr 09/09/24 11:00 09/09/24 15:00 09/09/24 15:00 Temperature 97.7 F 98.1 F Pulse Rate 92 Pulse Rate [Pulse Oximeter] 87 95 Respiratory Rate 14 14 Blood Pressure [r arm] 120/86 110/75 Pulse Oximetry 96 96 [facility] 09/09/24 19:45 09/09/24 22:40 09/09/24 23:30 Temperature 98.4 F Pulse Rate 92 Pulse Rate [Pulse Oximeter] 106 H 98 Respiratory Rate 14 14 Blood Pressure [r arm] 113/77 Pulse Oximetry 96 [facility] 09/09/24 23:30 09/10/24 03:00 09/10/24 07:00 Temperature 97.9 F 97.4 F L 97.6 F Pulse Rate Pulse Rate [Pulse Oximeter] 98 83 85 Respiratory Rate 14 16 16 Blood Pressure [r arm] 116/82 115/69 112/75 Pulse Oximetry 96 96 94 [facility] Room Air 09/10/24 07:00 Temperature Pulse Rate 86 Pulse Rate [Pulse Oximeter] Respiratory Rate Blood Pressure [r arm] Pulse Oximetry [facility]: Data Data Completed and Pending Labs on day of discharge: Labs from last 24 hours 09/10/24 09/10/24 09/09/24 07:41 02:00 20:03 WBC 8.86 RBC 3.20 L Hgb 9.9 L Hct 30.0 L MCV 94 MCH 31 MCHC 33 RDW Coeff of Pravin 12.9 Plt Count 288 Neut % (Auto) 67.2 Lymph % (Auto) 16.4 L [place] % (Auto) 12.4 H Eos % (Auto) 3.3 Baso % (Auto) 0.5 Neut # (Auto) 5.96 Lymph # (Auto) 1.50 [place] # (Auto) 1.10 H Eos # (Auto) 0.29 Baso # (Auto) 0.04 Abs Immat Gran (auto) 0.02 Imm/Tot Granulo (auto) 0.2 APTT 111 H* 74 H Sodium 136 Potassium 3.8 Chloride 104 Carbon Dioxide 28 Anion Gap 4 L BUN 9 Creatinine 0.6 Estimated Creat Clear 89.35 Estimated GFR 113 Glucose 116 H Calcium 9.7 09/09/24 07:01 WBC RBC Hgb Hct MCV MCH MCHC RDW Coeff of Pravin Plt Count Neut % (Auto) Lymph % (Auto) [place] % (Auto) Eos % (Auto) Baso % (Auto) Neut # (Auto) Lymph # (Auto) [place] # (Auto) Eos # (Auto) Baso # (Auto) Abs Immat Gran (auto) Imm/Tot Granulo (auto) APTT 108 H* Sodium Potassium Chloride Carbon Dioxide Anion Gap BUN Creatinine Estimated Creat Clear Estimated GFR Glucose Calcium Preliminary micro results at discharge 09/08/24 18:15 Blood Culture - Preliminary Blood NO GROWTH AFTER 24 HOURS 09/08/24 18:15 Blood Culture - Preliminary Blood NO GROWTH AFTER 24 HOURS 09/09/24 10:40 Aerobic Culture - Preliminary Catheter Tip - Cvp Culture in Progress Anaerobic Culture - Preliminary Culture in Progress Discharge Plan Discharge Disposition: Home, Self-Care Date of Admission: 09/09/24 17:15 Attending Provider on Discharge: Romina Garcia Consulting Providers: Kasandra Tesfaye Primary Care Provider: Yesenia Degroot Condition: Stable Anticipated Discharge Date/Time: 09/10/24 08:27 Discharge Medications: New Eliquis 5 mg tablet 10 mg PO BID Qty: 60 2RF Rx Instructions: take 10mg (2 tabs) po twice/day until 09/16; on 09/17, start 5mg (1 tab) po twice/day Continued cholecalciferol (vitamin D3) 25 mcg (1,000 unit) capsule 25 mcg PO QDAY hydrocodone-acetaminophen 5-325 mg Tablet 1 - 2 tab PO Q6H PRN (Reason: Pain) Qty: 25 0RF Discharge Orders: Discharge Order (Routine); Ordered 09/10/24 Ordered By: Romina Garcia Patient Education: Apixaban (By mouth) (Eliquis) Additional Instructions: Continue Eliquis as directed (next dose this evening at home). Our [facility] team will be in touch to schedule your iron infusions. Keep your other appts as scheduled (Brien, Plastics, Oncology, etc) The Breast care RN will call you nexgt week regarding timing of ultrasound and follow-up with Dr. Tesfaye. Activity Level: Light activity Discharge Diet: Regular Follow Up Appointments: Yesenia Degroot MD [Primary Care Provider, [employer] REPRESENTATIVE] Kasandra Tesfaye MD [Staff Physician, General Surgery] Forms: [facility] Info Instructions
--- NOTE | 2024-09-10 11:12 | PC.NURSE ---
[id number]: Pt. pleasant, AOx4. VSS. Moves independently. Lungs clear bilaterally. Bilateral chest dressing and cintia wrap CDI. Upper L chest dressing removed, no drainage or odor present. No redness or inflammation at suture site. Heparin stopped; Eliquis started. Pt. education provided on new anticoagulant. Pt. receptive and verbalized understanding. Peripheral IV removed. Tele monitor removed. Returning home with .
== END 2024-09-10 10:40 | disposition home or self-care (01) | DRG 253 ==
LOC: ED 18:36 → MEDSURG 19:11
PROVIDERS: Family Medicine; Physician Assistant; Admitting Provider Family Medicine; Emergency Provider Family Medicine; PCP Obstetrics & Gynecology; Visit Provider Family Medicine
DX: T82.868A Thrombosis due to vascular prosthetic devices, implants and grafts, initial encounter (principal); D84.81 Immunodeficiency due to conditions classified elsewhere; I82.C12 Acute embolism and thrombosis of left internal jugular vein; C50.912 Malignant neoplasm of unspecified site of left female breast; Z17.1 Estrogen receptor negative status [ER-]; Z17.22 Progesterone receptor negative status; Z17.32 Human epidermal growth factor receptor 2 negative status; Z83.2 Family history of diseases of the blood and blood-forming organs and certain disorders involving the immune mechanism; Z90.13 Acquired absence of bilateral breasts and nipples
CPT/HCPCS: 36415; 71046; 80048; 81001; 83605; 84484; 85025; 85027; 85379; 85610; 85730; 86140; 87040; 87070; 87075; 87205; 87631; 93005; 93971; 94761; 99284; 99285; A9270; G0378; J1644; J1756; J7030

== ENCOUNTER 2024-09-18 08:00 | Outpatient (CLI) | payer OTHER, SELFPAY ==
--- NOTE | 2024-09-18 08:15 | CRLHL7_ITS ---
For Patients: As a result of the Century Cures Act, medical imaging exams and procedure reports are released immediately into your electronic medical record. You may view this report before your referring provider. If you have questions, please contact your health care provider. Indication: Follow-up of a known left IJ thrombosis Technique: Grayscale, grayscale compression, color Doppler, spectral Doppler and augmentation technique was utilized for evaluating the left upper extremity venous system. Comparison: September 08, 2024 Findings: The right internal jugular vein is normal. The following structures were studied on the left and appears normal: External jugular vein, innominate vein, subclavian vein, axillary vein, brachial vein, basilic vein and cephalic vein. There is a relatively large thrombus involving the left internal jugular vein. This is occlusive and similar to the prior study. Impression: 1. Occlusive thrombus involving the left internal jugular vein similar to the prior study. No additional clot identified in the left upper extremity or the left EJ. 2. The right IJ appears normal Dictated by Benny Stephenson MD @ 09/18/2024 9:13:44 AM (Electronically Signed)
== END 2024-09-18 08:01 | disposition home or self-care (01) ==
LOC: US 08:01
PROVIDERS: PCP Obstetrics & Gynecology; Visit Provider Surgery
DX: I82.C19 Acute embolism and thrombosis of unspecified internal jugular vein (principal)
CPT/HCPCS: 93971

== ENCOUNTER 2024-09-26 13:57 | Outpatient (CLI) | payer OTHER, SELFPAY ==
--- NOTE | 2024-09-26 14:00 | CRLHL7_ITS ---
For Patients: As a result of the Century Cures Act, medical imaging exams and procedure reports are released immediately into your electronic medical record. You may view this report before your referring provider. If you have questions, please contact your health care provider. INDICATION: left IJV clot, h/o bilateral mastectomy TECHNIQUE: Venous duplex ultrasound of the left upper extremity utilizing compression with neff-scale, color Doppler, and spectral Doppler imaging. COMPARISON: Left upper extremity DVT ultrasound on September 18, 2024 FINDINGS/IMPRESSION: Redemonstration of a persistent deep vein thrombosis in the left internal jugular vein, similar in appearance compared to prior exam. There is no deep vein thrombosis in the left innominate, subclavian, axillary, or brachial veins. No superficial vein thrombosis in the left basilic or cephalic veins. Well-circumscribed fluid collection inferior to the left clavicle near area of bruising measuring 2.9 x 1.1 x 2.9 centimeters, favored to represent a seroma, which may be at site of prior port catheter. Dictated by Ramin Edwards MD @ 09/26/2024 3:30:28 PM (Electronically Signed)
== END 2024-09-26 13:58 | disposition home or self-care (01) ==
LOC: US 13:57
PROVIDERS: PCP Obstetrics & Gynecology; Visit Provider Surgery
DX: I82.C12 Acute embolism and thrombosis of left internal jugular vein (principal); Z90.13 Acquired absence of bilateral breasts and nipples
CPT/HCPCS: 93971

== ENCOUNTER 2025-02-07 09:00 | Outpatient (CLI) | payer OTHER, SELFPAY ==
--- NOTE | 2025-02-07 09:15 | CRLHL7_ITS ---
For Patients: As a result of the Century Cures Act, medical imaging exams and procedure reports are released immediately into your electronic medical record. You may view this report before your referring provider. If you have questions, please contact your health care provider. Indication: Lump Technique: Grayscale and color Doppler ultrasound of the left neck performed in the area of concern Comparison: CT neck 03/10/2024 Findings: Normal left cervical lymph node measures 10 x 2 x 5 millimeters. No abnormal vascularity. No fluid collection. No suspicious nodule within the left thyroid lobe. Impression: No suspicious findings. Dictated by Paramjit Tsang MD @ 02/07/2025 10:55:55 AM (Electronically Signed)
== END 2025-02-07 09:01 | disposition home or self-care (01) ==
PROVIDERS: PCP Obstetrics & Gynecology; Visit Provider Internal Medicine Hematology & Oncology
DX: I82.C19 Acute embolism and thrombosis of unspecified internal jugular vein (principal); C50.919 Malignant neoplasm of unspecified site of unspecified female breast; Z17.421 Hormone receptor negative with human epidermal growth factor receptor 2 negative status
CPT/HCPCS: 76536